=== PATIENT | female | born 1985 | race Caucasian/White ===

== ENCOUNTER → 2017-09-17 | Outpatient (CLI) | payer OTHER ==
--- NOTE | 2017-09-17 11:55 | MR ---
EXAMINATION TYPE: MR knee LT wo con DATE OF EXAM: 09/17/2017 COMPARISON: Plain film 08/25/2017 HISTORY: Left knee pain TECHNIQUE: Multiplanar, multisequence imaging of the left knee is performed without IV contrast. FINDINGS: Exam somewhat limited by patient body habitus. MEDIAL MENISCUS: Anterior and posterior horns are intact without tear. Some increased signal present within the meniscus without clear communication with the articular surface. LATERAL MENISCUS: Some increased signal present within the meniscus without definite tear. CRUCIATE LIGAMENTS: The posterior cruciate ligament shows abnormal increased signal throughout its di stribution and appears attenuated suggestive of at least partial tear. Fibers anterior cruciate ligam ent are not identified. COLLATERAL LIGAMENTS: Abnormal thickening of the popliteus tendon is present, there is increased sign al within its distribution suggestive of tendinopathy. Fibers of the fibular collateral ligament are not well seen, biceps femoris tendon appears somewhat laterally displaced from its expected insertion . I suspect avulsion from the fibular head. EXTENSOR MECHANISM: Visualized quadriceps and patellar tendons are intact. EFFUSION: Suprapatellar increased signal compatible with joint effusion. POPLITEAL CYST: No popliteal/addison cyst. TRICOMPARTMENT SPACES: There is lateral subluxation of the patella relation to the distal femur. Thais inal spurring present in the medial compartment and also at the patellofemoral joint, to lesser exten t lateral compartment CARTILAGE: Grade IV chondromalacia present at the posterior patella. BONE MARROW SIGNAL: Suspect pulmonary edema especially in the proximal tibia, the medial femoral cond yle shows some depression medially, subchondral linear low signal suggests microtrabecular fracture, impaction fracture with local marrow edema, there are likely microtrabecular fractures involving the anterior aspect of the proximal tibia as well, mild depression is noted centrally in the anterior asp ect of the proximal tibia. OTHER: Subcutaneous fat shows edema change. Fluid collection along the muscular peripherally lateral ly and posteriorly could be related to prior injury, hemorrhage IMPRESSION: Findings compatible with patient's history of dislocation of the knee with fractures of the medial fe moral condyle and proximal tibia, there are osteoarthritic changes, tear of the anterior cruciate lig ament and likely posterior cruciate ligament. Lateral collateral ligamentous complex is abnormal as d escribed.
== END | disposition home or self-care (01) ==
LOC: RADMRIMAIN 08:45
PROVIDERS: ATTEND Orthopaedic Surgery
DX: M23.8X2 Other internal derangements of left knee (principal)

== ENCOUNTER → 2019-04-02 | Outpatient (CLI) | payer OTHER | END | disposition home or self-care (01) | LOC: LABWHC1 13:10 | PROVIDERS: ATTEND Pathology Anatomic Pathology & Clinical Pathology | DX: Z53.9 Procedure and treatment not carried out, unspecified reason (principal) | CPT/HCPCS: 36415 ==

== ENCOUNTER 2021-01-17 16:14 | Inpatient (IN) | payer OTHER ==
[2021-01-17] MEDS ORDERED: SODIUM CHLORIDE 0.9% 1,000 ML IV STA ×3 (17:15→19:30)
[2021-01-17] MEDS ORDERED: ONDANSETRON 4 MG/2 ML VIAL IVP STA ×2 (17:15→19:29)
[2021-01-17 17:34] LABS: Basophils % (A) 0 %; Eosinophils # (A) 0.2 k/uL (0-0.7); Eosinophils % (A) 1 %; HCT 37.4 % (34.0-46.0); HGB 13.1 gm/dL (11.4-16.0); Lymphocytes # (A) 2.5 k/uL (1.0-4.8); Lymphocytes % (A) 16 %; MCH 28.7 pg (25.0-35.0); MCHC 35.1 g/dL (31.0-37.0); MCV 81.8 fL (80.0-100.0); Mean Platelet Volume 9.9; Monocytes # (A) 0.6 k/uL (0-1.0); Monocytes % (A) 4 %; Neutrophils # (A) 12.7 k/uL (1.3-7.7); Neutrophils % (A) 79 %; Platelet Count 304 k/uL (150-450); RBC 4.57 m/uL (3.80-5.40); RDW 14.9 % (11.5-15.5); WBC 16.1 k/uL (3.8-10.6)
--- NOTE | 2021-01-17 17:34 | ED ---
General Adult HPI - General Source: patient, RN notes reviewed Mode of arrival: wheelchair Limitations: no limitations <Meek Hallman - Last Filed: 01/17/21 18:55> <Shant Salinas - Last Filed: 01/17/21 19:40> - General Chief complaint: Abdominal Pain Stated complaint: SOB, weakness, abd pain Time Seen by Provider: 01/17/21 17:14 - History of Present Illness Initial comments: 35-year-old female presents to the emergency department for a 1 year history of constipation that been on and off. She notes that she has been a doctor in many years due to some personal reasons that she was unwilling to discuss. She notes that the last several months she noted that she was becoming bloated so she male ordered some Lasix, hydrochlorothiazide and lisinopril to try to help her make her P and given his excess fluid. Patient states that her last movement was this morning a large bowel movement that was soft in consistency nonformed. She notes that since she started taking her mail order medication she's felt a luis le rundown and tired and just not right. She notes that she really only takes the Lasix and hydrochlorothiazide regularly and takes lisinopril every once a while. She denied any chest pain shortness of breath headache vomiting diarrhea fever fatigue chills. (Meek Hallman) - Related Data Home Medications Medication Instructions Recorded Confirmed Multivitamins, Thera [Multivitamin 1 tab PO DAILY 01/17/21 01/17/21 (formulary)] Previous Rx's Medication Instructions Recorded Potassium Chloride ER [K-Dur 20] 20 meq PO DAILY 7 Days #7 tab 01/17/21 Allergies Allergy/AdvReac Type Severity Reaction Status Date / Time No Known Allergies Allergy Verified 01/17/21 18:42 Review of Systems ROS Other: All systems not noted in ROS Statement are negative. <Meek Hallman - Last Filed: 01/17/21 18:55> ROS Other: All systems not noted in ROS Statement are negative. <Shant Salinas - Last Filed: 01/17/21 19:40> ROS Statement: Those systems with pertinent positive or pertinent negative responses have been documented in the HPI. Past Medical History Past Medical History: No Reported History Additional Past Medical History / Comment(s): meningitis History of Any Multi-Drug Resistant Organisms: None Reported Past Surgical History: Section, Ear Surgery Past Psychological History: Anxiety, Bipolar, Depression, Panic Disorder Smoking Status: Never smoker Past Alcohol Use History: Occasional Past Drug Use History: None Reported <Meek Hallman - Last Filed: 01/17/21 18:55> General Exam Limitations: no limitations General appearance: alert, in no apparent distress, obese Head exam: Present: atraumatic, normocephalic, normal inspection Eye exam: Present: normal appearance, PERRL, EOMI. Absent: scleral icterus, conjunctival injection, periorbital swelling ENT exam: Present: normal exam, mucous membranes moist Neck exam: Present: normal inspection. Absent: tenderness, meningismus, lymphadenopathy Respiratory exam: Present: normal lung sounds bilaterally. Absent: respiratory distress, wheezes, rales, rhonchi, stridor Cardiovascular Exam: Present: regular rate, normal rhythm, normal heart sounds. Absent: systolic murmur, diastolic murmur, rubs, gallop, clicks GI/Abdominal exam: Present: soft, normal bowel sounds. Absent: distended, tenderness, guarding, rebound, rigid Extremities exam: Present: normal inspection, full ROM, normal capillary refill. Absent: tenderness, pedal edema, joint swelling, calf tenderness Neurological exam: Present: alert, oriented X3, CN II-XII intact Psychiatric exam: Present: normal affect, normal mood Skin exam: Present: warm, dry, intact, normal color. Absent: rash <Meek Hallman - Last Filed: 01/17/21 18:55> Course Vital Signs 01/17/21 01/17/21 16:21 18:36 Temperature 98.4 F Pulse Rate 90 103 H Respiratory 16 18 Rate Blood Pressure 91/48 85/47 O2 Sat by Pulse 97 96 Oximetry Medical Decision Making - Lab Data Result diagrams: 01/17/21 17:25 01/17/21 17:25 - Radiology Data Radiology results: report reviewed, image reviewed <Meek Hallman - Last Filed: 01/17/21 18:55> - Lab Data Result diagrams: 01/17/21 17:25 01/17/21 17:25 <Shant Salinas - Last Filed: 01/17/21 19:40> - Medical Decision Making 85-year-old female complaining of chronic constipation. Labs, CT of the abdomen and pelvis, 4 mg of Zofran, 1 L of normal saline ordered. Patient educated on importance of regular follow-up with primary care physician, and not ordering prescription medications online without a valid prescription. White count 16.1, potassium 2.9, creatinine 1.47, BUN 25 40 mEq of potassium by mouth ordered. CT negative for any acute process. Case discussed with Dr. Salinas, decided the patient could discharge home with conservative management and follow-up primary care. (Meek Hallman) Patient started with vomiting. Patient denies vomiting earlier. Patient plan was to be discharged with oral hydration and potassium replacement. Secondary to vomiting this is felt to be unwise. Case was discussed with Dr. Wilcox, who will admit his patient. (Shant Salinas) - Lab Data Lab Results 01/17/21 01/17/21 01/17/21 Range/Units 17:25 17:25 17:37 WBC 16.1 H (3.8-10.6) k/uL RBC 4.57 (3.80-5.40) m/uL Hgb 13.1 (11.4-16.0) gm/dL Hct 37.4 (34.0-46.0) % MCV 81.8 (80.0-100.0) fL MCH 28.7 (25.0-35.0) pg MCHC 35.1 (31.0-37.0) g/dL RDW 14.9 (11.5-15.5) % Plt Count 304 (150-450) k/uL MPV 9.9 Neutrophils % 79 % Lymphocytes % 16 % Monocytes % 4 % Eosinophils % 1 % Basophils % 0 % Neutrophils # 12.7 H (1.3-7.7) k/uL Lymphocytes # 2.5 (1.0-4.8) k/uL Monocytes # 0.6 (0-1.0) k/uL Eosinophils # 0.2 (0-0.7) k/uL Basophils # 0.0 (0-0.2) k/uL Sodium 134 L (137-145) mmol/L Potassium 2.9 L (3.5-5.1) mmol/L Chloride 87 L (98-107) mmol/L Carbon Dioxide 30 (22-30) mmol/L Anion Gap 17 mmol/L BUN 25 H (7-17) mg/dL Creatinine 1.47 H (0.52-1.04) mg/dL Est GFR (CKD-EPI)AfAm 53 (>60 ml/min/1.73 sqM) Est GFR (CKD-EPI)NonAf 46 (>60 ml/min/1.73 sqM) Glucose 187 H (74-99) mg/dL Calcium 10.1 (8.4-10.2) mg/dL Total Bilirubin 0.6 (0.2-1.3) mg/dL AST 27 (14-36) U/L ALT 40 H (4-34) U/L Alkaline Phosphatase 105 (38-126) U/L Total Protein 7.5 (6.3-8.2) g/dL Albumin 4.1 (3.5-5.0) g/dL Amylase 39 (30-110) U/L Lipase 112 (23-300) U/L Urine Color Yellow Urine Appearance Cloudy H (Clear) Urine pH 5.5 (5.0-8.0) Ur Specific Reynolds 1.022 (1.001-1.035) Urine Protein 1+ H (Negative) Urine Glucose (UA) Negative (Negative) Urine Ketones Negative (Negative) Urine Blood Negative (Negative) Urine Nitrite Negative (Negative) Urine Bilirubin Negative (Negative) Urine Urobilinogen <2.0 (<2.0) mg/dL Ur Leukocyte Esterase Trace H (Negative) Urine WBC 5 (0-5) /hpf Ur Squamous Epith Cells 34 H (0-4) /hpf Urine Mucus Rare H (None) /hpf Urine HCG, Qual (Not Detectd) 01/17/21 Range/Units 17:37 WBC (3.8-10.6) k/uL RBC (3.80-5.40) m/uL Hgb (11.4-16.0) gm/dL Hct (34.0-46.0) % MCV (80.0-100.0) fL MCH (25.0-35.0) pg MCHC (31.0-37.0) g/dL RDW (11.5-15.5) % Plt Count (150-450) k/uL MPV Neutrophils % % Lymphocytes % % Monocytes % % Eosinophils % % Basophils % % Neutrophils # (1.3-7.7) k/uL Lymphocytes # (1.0-4.8) k/uL Monocytes # (0-1.0) k/uL Eosinophils # (0-0.7) k/uL Basophils # (0-0.2) k/uL Sodium (137-145) mmol/L Potassium (3.5-5.1) mmol/L Chloride (98-107) mmol/L Carbon Dioxide (22-30) mmol/L Anion Gap mmol/L BUN (7-17) mg/dL Creatinine (0.52-1.04) mg/dL Est GFR (CKD-EPI)AfAm (>60 ml/min/1.73 sqM) Est GFR (CKD-EPI)NonAf (>60 ml/min/1.73 sqM) Glucose (74-99) mg/dL Calcium (8.4-10.2) mg/dL Total Bilirubin (0.2-1.3) mg/dL AST (14-36) U/L ALT (4-34) U/L Alkaline Phosphatase (38-126) U/L Total Protein (6.3-8.2) g/dL Albumin (3.5-5.0) g/dL Amylase (30-110) U/L Lipase (23-300) U/L Urine Color Urine Appearance (Clear) Urine pH (5.0-8.0) Ur Specific Reynolds (1.001-1.035) Urine Protein (Negative) Urine Glucose (UA) (Negative) Urine Ketones (Negative) Urine Blood (Negative) Urine Nitrite (Negative) Urine Bilirubin (Negative) Urine Urobilinogen (<2.0) mg/dL Ur Leukocyte Esterase (Negative) Urine WBC (0-5) /hpf Ur Squamous Epith Cells (0-4) /hpf Urine Mucus (None) /hpf Urine HCG, Qual Not Detected (Not Detectd) - Radiology Data There is no bowel obstruction, there is mild thickening of the midportion the transverse colon. Colonoscopy is recommended. Appendix is not seen no evidence of diverticulosis or diverticulitis no significant calcification of the arteries of the abdomen no abdominal aortic aneurysm. (Meek Hallman) Disposition Is patient prescribed a controlled substance at d/c from ED?: No Time of Disposition: 18:54 <Meek Hallman - Last Filed: 01/17/21 18:55> Is patient prescribed a controlled substance at d/c from ED?: No Decision Time: 19:40 <Shant Salinas - Last Filed: 01/17/21 19:40> Clinical Impression: Dehydration, Abdominal pain, Constipation, Hypokalemia Disposition: ADMITTED IP TO THIS [facility] Condition: Stable Instructions (If sedation given, give patient instructions): Abdominal Pain (ED) Additional Instructions: Please return to the Emergency Department if symptoms worsen or any other concerns. Strongly strongly recommend stopped taking online medications and to follow-up with primary care in 1-2 days to get full evaluation and establish care. Recommend a colonoscopy with a worker's compensation claims examiner for continued bowel symptoms. Stopped taking Lasix hydrochlorothiazide and lisinopril as they're not prescribed . Lasix deplete potassium, when potassium depletes cardiac issues may arise. Prescriptions: Potassium Chloride ER [K-Dur 20] 20 meq PO DAILY 7 Days #7 tab Referrals: Amor Wilcox MD [Primary Care Provider] - 1-2 days David Escalante MD [STAFF PHYSICIAN] - 1-2 days
[2021-01-17 17:41] LABS: Albumin 4.1 g/dL (3.5-5.0); Calcium 10.1 mg/dL (8.4-10.2); Potassium 2.9 mmol/L (3.5-5.1); Total Bilirubin 0.6 mg/dL (0.2-1.3); Total Protein 7.5 g/dL (6.3-8.2)
[2021-01-17 17:58] LABS: Appearance,Urine Cloudy (Clear); Bilirubin,Urine Negative (Negative); Blood,Urine Negative (Negative); Color,Urine Yellow; Glucose,Urine (UA) Negative (Negative); Ketones,Urine Negative (Negative); Leukocyte Esterase,Urine Trace (Negative); Mucus,Urine Rare /hpf; Nitrite,Urine Negative (Negative); PH, Urine 5.5 (5.0-8.0); Protein,Urine 1+ (Negative); Specific Gravity,Urine 1.022 (1.001-1.035); Squamous Epithelial Cell,Urine 34 /hpf (0-4); Urobilinogen,Urine <2.0 mg/dL (<2.0); WBC,Urine 5 /hpf (0-5)
[2021-01-17] MEDS ORDERED: POTASSIUM CHLORIDE ER 20 MEQ TAB.ER PO STA (18:27)
--- NOTE | 2021-01-17 18:42 | CT ---
EXAMINATION TYPE: CT abdomen pelvis w con DATE OF EXAM: 01/17/2021 COMPARISON: None. HISTORY: abdominal pain CT DLP: [id number] mGycm Automated exposure control for dose reduction was used. TECHNIQUE: Helical acquisition of images was performed from the lung bases through the pelvis. CONTRAST: Performed without Oral Contrast and with IV Contrast, patient injected with 80 mL of Isovue 300. FINDINGS: LUNG BASES: Clear. LIVER/GB: Slight fatty metamorphosis. PANCREAS: No significant abnormality is seen. SPLEEN: No significant abnormality is seen. ADRENALS: No significant abnormality is seen. KIDNEYS: No significant abnormality is seen. FREE AIR: No free air is visualized. RETROPERITONEAL ADENOPATHY: None visualized REPRODUCTIVE ORGANS: No significant abnormality is seen URINARY BLADDER: No significant abnormality is seen. PELVIC ADENOPATHY: None visualized. OSSEOUS STRUCTURES: No significant abnormality is seen. BOWEL: There is mild thickening of the midportion of the transverse colon and this could be due to p eristalsis, however, other etiologies should also be considered. IMPRESSION: 1. THERE IS NO BOWEL OBSTRUCTION. 2. THERE IS MILD THICKENING OF THE MIDPORTION OF THE TRANSVERSE COLON. COLONOSCOPY IS RECOMMENDED. 3. APPENDIX IS NOT SEEN. 4. NO EVIDENCE OF DIVERTICULOSIS OR DIVERTICULITIS. NO SIGNIFICANT CALCIFICATION OF THE ARTERIES OF T HE ABDOMEN. NO ABDOMINAL AORTIC ANEURYSM.
[2021-01-17] MEDS ORDERED: FAMOTIDINE 20 MG/2 ML VIAL IV STA (19:29)
[2021-01-17] MEDS ORDERED: ONDANSETRON 4 MG/2 ML VIAL IVP PRN (19:40)
[2021-01-17] MEDS ORDERED: NALOXONE 0.4 MG/ML 1 ML VIAL IV PRN (19:40)
[2021-01-17] MEDS ORDERED: SODIUM CHLORIDE 0.9% 500 ML 500 ML IV STA (19:42)
[2021-01-17] MEDS: 0.9% NACL WITH KCL 20 MEQ/L 1,000 ML IV SCH (20:55)
[2021-01-17] MEDS: POTASSIUM CHLORIDE ER 20 MEQ TAB.ER PO SCH (21:15)
[2021-01-18] MEDS: 0.9% NACL WITH KCL 20 MEQ/L 1,000 ML IV SCH ×3 (03:49→21:39)
[2021-01-18] MEDS: POTASSIUM CHLORIDE ER 20 MEQ TAB.ER PO SCH ×2 (07:41→21:35)
[2021-01-18] MEDS ORDERED: PANTOPRAZOLE 40 MG/10 ML VIAL IV SCH (09:00)
--- NOTE | 2021-01-18 13:48 | PN ---
PROGRESS NOTE CHIEF COMPLAINT: Dehydration and hypokalemia. HISTORY OF PRESENT ILLNESS: This lady seems to be doing well. She is not having any weakness, muscle cramps, etc. She is on clear liquids and we will advance her diet. PHYSICAL EXAMINATION: Chest is clear. Cardiac exam is normal. Abdomen is soft, nontender. IMPRESSION: 1. Dehydration. 2. Iatrogenic or self-inflicted hypokalemia. 3. Obesity. PLAN: 1. Advance diet. 2. Follow labs. MMODL / IJN: [id number] /
--- NOTE | 2021-01-18 15:14 | HP ---
HISTORY AND PHYSICAL CHIEF COMPLAINT: Dehydration, weakness and hypokalemia. HISTORY OF PRESENT ILLNESS: This is the first known admission for this 35-year-old white female. She apparently decided that she needed to lose weight and get rid of edema and bought some Lasix through the mail. She took them and then became dizzy, lightheaded and presented to the emergency room with dehydration and hypokalemia. She has had no syncope, chest pain, etc. Symptom-awad, she has had no other symptoms. Past medical history, family history and personal and social histories demonstrate that she is not allergic to any medication. She is not currently taking any. PHYSICAL EXAMINATION: Blood pressure is 98/60 with a pulse of 94, respirations of 36, and she is afebrile. In general, she appeared to be obese and in no acute distress. Skin color is normal and skin is warm, dry. Lymph nodes are not enlarged. Head, ears, eyes, nose, mouth and throat were normal. Neck veins are not distended. Thyroid is not enlarged. Chest is clear. Cardiac exam is normal. Abdomen is soft, nontender. Abdomen is extremely protuberant. Extremities: Normal. Neurologically, she is intact. She is admitted to the hospital with diagnoses: 1. Dehydration. 2. Hypokalemia. 3. Obesity. PLAN: 1. Bedrest. 2. IV fluids. 3. Correct electrolyte imbalance. MMODL / TONIAN: [id number] /
[2021-01-18] MEDS ORDERED: SODIUM CHLORIDE 0.9% 1,000 ML IV ONE (15:19)
[2021-01-18 16:32] LABS: Basophils % (A) 0 %; Eosinophils # (A) 0.1 k/uL (0-0.7); Eosinophils % (A) 1 %; HCT 33.2 % (34.0-46.0); HGB 10.7 gm/dL (11.4-16.0); Lymphocytes # (A) 2.1 k/uL (1.0-4.8); Lymphocytes % (A) 23 %; MCH 27.5 pg (25.0-35.0); MCHC 32.2 g/dL (31.0-37.0); MCV 85.4 fL (80.0-100.0); Mean Platelet Volume 9.9; Monocytes # (A) 0.4 k/uL (0-1.0); Monocytes % (A) 4 %; Neutrophils # (A) 6.3 k/uL (1.3-7.7); Neutrophils % (A) 70 %; Platelet Count 212 k/uL (150-450); RBC 3.89 m/uL (3.80-5.40); RDW 15.4 % (11.5-15.5); WBC 9.1 k/uL (3.8-10.6)
[2021-01-18 16:42] LABS: ALT 32 U/L (4-34); AST 24 U/L (14-36); African American GFR (CKD) 65 (>60 ml/min/1.73 sqM); Albumin 3.3 g/dL (3.5-5.0); Albumin/Globulin Ratio 1.1; Alkaline Phosphatase 74 U/L (38-126); Anion Gap 6 mmol/L; Blood Urea Nitrogen 29 mg/dL (7-17); Calcium 8.5 mg/dL (8.4-10.2); Carbon Dioxide 31 mmol/L (22-30); Chloride 99 mmol/L (98-107); Glucose 117 mg/dL (74-99); Non-African American GFR(CKD) 56 (>60 ml/min/1.73 sqM); Potassium 3.6 mmol/L (3.5-5.1); Sodium 136 mmol/L (137-145); Total Bilirubin 0.4 mg/dL (0.2-1.3); Total Protein 6.3 g/dL (6.3-8.2)
[2021-01-18 20:35] LABS: African American GFR (CKD) 61.6 (60.0-200.0); BUN/Creat Ratio 25.38 Ratio (12.00-20.00); Calcium 8.6 mg/dL (8.7-10.3); Non-African American GFR(CKD) 53.1 (60.0-200.0); Potassium 3.6 mmol/L (3.5-5.5)
[2021-01-18] MEDS ORDERED: ASPIRIN 81 MG PO STA (21:27)
[2021-01-18] MEDS: HEPARIN SODIUM,PORCINE 5,000 UNIT/ML 1 ML VIAL SQ SCH (21:36)
[2021-01-19] MEDS: 0.9% NACL WITH KCL 20 MEQ/L 1,000 ML IV SCH ×3 (04:43→21:05)
[2021-01-19] MEDS: PANTOPRAZOLE 40 MG TABLET PO SCH (07:33)
--- NOTE | 2021-01-19 08:44 | XR ---
EXAMINATION TYPE: XR chest 2V DATE OF EXAM: 01/19/2021 COMPARISON: NONE HISTORY: CHF. TECHNIQUE: Frontal and lateral views of the chest are obtained. FINDINGS: Exam slightly suboptimal secondary to patient's large body habitus. There is no focal air space opacity, pleural effusion, or pneumothorax seen. The cardiac silhouette size is within normal limits. The osseous structures are intact. Overlying EKG leads noted. IMPRESSION: No acute cardiopulmonary process.
[2021-01-19] MEDS ORDERED: ASPIRIN 81 MG PO SCH (09:00)
[2021-01-19] MEDS: POTASSIUM CHLORIDE ER 20 MEQ TAB.ER PO SCH ×2 (09:12→21:05)
[2021-01-19] MEDS: HEPARIN SODIUM,PORCINE 5,000 UNIT/ML 1 ML VIAL SQ SCH ×2 (09:12→21:05)
--- NOTE | 2021-01-19 10:02 | P.CRDCN ---
History of Present Illness History of present illness: HISTORY OF PRESENTING ILLNESS This is a pleasant 35-year-old female with no significant past medical history. She does not follow in the office with a senior service aide, her primary ca re doctor is Dr. Wilcox, but she states she has not seen him in a year. We have been asked to see in consultation for elevated troponins and chest pain. Patient is seen and examined at bedside lying in bed in no acute distress . Patient states that over the past 2 weeks she has been taking PO Lasix, 25mg PO hydrochlorothiazide, lisinopril, Flexeril. She states that she started taking 40 mg Lasix pills for one week and then increased her dose to having about 160 mg of Lasix and 1 day. She obtained all these medications on line via mail order. She states she was feeling very unwell, was lightheaded and felt dehydrated and presented to the emergency department. She started taking these medications she felt that her lower extremities were increased in swelling and that her abdomen was also looking bigger and more full. She states that she's been never been diagnosed with hypertension, diabetes, stroke, [place]. She denies chest pain at this time, but she has had episodes of chest pain. Yesterday, she states that she did have a episode of chest pain after walking from the bathroom and lying down when she was relaxing felt some pain in her midsternum, troponin was elevated at 0.057. She endorses being short of breath very frequently. She states is not very active at home. She sleeps with 2 pillows at night and cannot sleep lying flat due to shortness of breath. She endorses fatigue. She denies palpitations. Patients states she has never been prescribed medication. She denies tobacco use, alcohol use, illicit drug use. Laboratory data reviewed, on admission patient had a potassium of 2.9, creatinine 1.47. Yesterday, Troponin trending up 0.057-->0.086-->0.094. WBC 9.1, hemoglobin 10.7, sodium 136, potassium 3.6, creatinine 1.25, BNP 88. Vital signs blood pressure 111/78, heart rate 94, 97% on room air, afebrile DIAGNOSTICS EKG 01/18 1508: Normal sinus rhythm, T-wave inversions in lead 3, no significant STT wave abnormalities. EKG 01/18 1800: Normal sinus rhythm, no change from prior, no significant STT wave abnormalities EKG 01/19:0615: Normal sinus rhythm, no change from prior, no significant STT wave abnormalities Telemetry tracings indicate sinus mechanism. Chest xray- no acute cardiopulmonary process REVIEW OF SYSTEMS At the time of my exam: CONSTITUTIONAL: Denies fever or chills. CARDIOVASCULAR: +chest discomfort + shortness of breath, +orthopnea Denies palpitations. RESPIRATORY: +cough. GASTROINTESTINAL: Denies abdominal pain, diarrhea, constipation, nausea or vomiting. MUSCULOSKELETAL: Denies myalgias. NEUROLOGIC: +lightheaded, + dizziness Denies numbness, tingling, headacbe or weakness. ENDOCRINE: +fatigue, +weight change Denies polydipsia or polyurina. GENITOURINARY: Denies burning, hematuria or urgency with micturation. HEMATOLOGIC: Denies history of anemia or bleeding. PHYSICAL EXAMINATION CONSTITUTIONAL: No apparent distress. HEENT: Head is normocephalic. Pupils are equal, round. Sclerae anicteric. Mucous membranes of the mouth are moist. No JVD. No carotid bruit. CHEST EXAMINATION: Lungs are clear to auscultation. No chest wall tenderness is noted on palpation or with deep breathing. HEART EXAMINATION: Regular rate and rhythm. S1, S2 heard. No murmurs, gallops or rub. ABDOMEN: Soft, nontender. Positive bowel sounds. EXTREMITIES: 2+ peripheral pulses, no lower extremity edema and no calf tenderness. SKIN: intact NEUROLOGIC EXAMINATION: Patient is awake, alert and oriented x3. ASSESSMENT -Elevated troponins- unclear etiology, however troponins trending up, no EKG changes -Acute Kidney Injury- most likely due to dehydration, creatinine improving with IV fluids -Morbid Obesity BMI 66 PLAN -2D echo, monitor electrolytes and renal function, check troponin. Will keep patient NPO at this time. Further cardiac recommendations pending further workup. Nurse Practitioner note has been reviewed, I agree with a documented findings and plan of care. Patient was seen and examined. Past Medical History Past Medical History: No Reported History Additional Past Medical History / Comment(s): meningitis, herniated discs. History of Any Multi-Drug Resistant Organisms: None Reported Past Surgical History: Section, Ear Surgery Past Anesthesia/Blood Transfusion Reactions: No Reported Reaction Past Psychological History: Anxiety, Bipolar, Depression, Panic Disorder Additional Psychological History / Comment(s): pt states she has not been dx but she thinks she has them. Smoking Status: Never smoker Past Alcohol Use History: Occasional Past Drug Use History: None Reported Medications and Allergies Home Medications Medication Instructions Recorded Confirmed Type Multivitamins, Thera [Multivitamin 1 tab PO DAILY 01/17/21 01/17/21 History (formulary)] Potassium Chloride ER [K-Dur 20] 20 meq PO DAILY 7 Days #7 tab 01/17/21 Rx Allergies Allergy/AdvReac Type Severity Reaction Status Date / Time No Known Allergies Allergy Verified 01/17/21 18:42 Physical Exam Vitals: Vital Signs Temp Pulse Resp BP BP Pulse Ox 01/19/21 07:00 98.1 F 94 18 111/78 97 01/19/21 03:11 97.5 F L 92 96/66 99 01/18/21 19:15 97.9 F 97 122/79 99 01/18/21 16:22 102/70 01/18/21 14:46 100 18 01/18/21 14:45 97.9 F 100 18 70/39 95 Intake and Output 01/18/21 01/19/21 01/19/21 22:59 06:59 14:59 Intake Total 700 Balance 700 Intake: Oral 700 Other: Voiding Method Toilet Toilet # Voids 2 Weight 187.5 kg Results 01/18/21 15:55 01/18/21 15:55 Cardiac Enzymes 01/18/21 01/18/21 01/18/21 Range/Units 15:47 15:55 19:34 AST 24 (14-36) U/L Troponin I 0.057 H* 0.086 H* (0.000-0.034) ng/mL 01/18/21 Range/Units 22:03 AST (14-36) U/L Troponin I 0.094 H* (0.000-0.034) ng/mL CBC 01/18/21 Range/Units 15:55 WBC 9.1 (3.8-10.6) k/uL RBC 3.89 (3.80-5.40) m/uL Hgb 10.7 L (11.4-16.0) gm/dL Hct 33.2 L (34.0-46.0) % Plt Count 212 (150-450) k/uL Comprehensive Metabolic Panel 01/18/21 01/18/21 Range/Units 06:00 15:55 Sodium 141 136 L (135-145) mmol/L Potassium 3.6 3.6 (3.5-5.5) mmol/L Chloride 100 99 (96-109) mmol/L Carbon Dioxide 32.0 H 31 H (21.6-31.8) mmol/L BUN 33.0 H 29 H (9.0-27.0) mg/dL Creatinine 1.3 1.25 H (0.6-1.5) mg/dL Glucose 110 117 H (70-110) mg/dL Calcium 8.6 L 8.5 (8.7-10.3) mg/dL AST 24 (14-36) U/L ALT 32 (4-34) U/L Alkaline Phosphatase 74 (38-126) U/L Total Protein 6.3 (6.3-8.2) g/dL Albumin 3.3 L (3.5-5.0) g/dL Current Medications Generic Name Dose Route Start Last Admin Trade Name Freq PRN Reason Stop Dose Admin Aspirin 81 mg 01/19/21 09:00 01/19/21 09:12 Aspirin 81 Mg PO 81 mg DAILY DANE Administration Heparin Sodium (Porcine) 5,000 unit 01/18/21 21:30 01/19/21 09:12 Heparin Sodium,Porcine 5,000 Unit/Ml 1 Ml Vial SQ 5,000 unit Q12HR DANE Administration Potassium Chloride/Sodium Chloride 1,000 mls @ 125 mls/hr 01/17/21 19:45 01/19/21 04:43 Ns-Kcl 20 Meq/L Iv Solution IV 125 mls/hr .Q8H DANE Administration Naloxone HCl 0.2 mg 01/17/21 19:40 Naloxone 0.4 Mg/Ml 1 Ml Vial IV Q2M PRN Opioid Reversal Ondansetron HCl 4 mg 01/17/21 19:40 Ondansetron 4 Mg/2 Ml Vial IVP Q8HR PRN Nausea And Vomiting Pantoprazole Sodium 40 mg 01/19/21 07:30 01/19/21 07:33 Pantoprazole 40 Mg Tablet PO 40 mg [id number] DANE Administration Potassium Chloride 20 meq 01/17/21 21:00 01/19/21 09:12 Potassium Chloride Er 20 Meq Tab.Er PO 20 meq BID DANE Administration Intake and Output 01/18/21 01/19/21 01/19/21 22:59 06:59 14:59 Intake Total 700 Balance 700 Intake: Oral 700 Other: Voiding Method Toilet Toilet # Voids 2 Weight 187.5 kg 01/18/21 15:55 01/18/21 15:55
[2021-01-19 11:24] LABS: African American GFR (CKD) >90 (>60 ml/min/1.73 sqM); Anion Gap 6 mmol/L; Blood Urea Nitrogen 21 mg/dL (7-17); Calcium 8.3 mg/dL (8.4-10.2); Carbon Dioxide 25 mmol/L (22-30); Chloride 104 mmol/L (98-107); Glucose 128 mg/dL (74-99); Non-African American GFR(CKD) >90 (>60 ml/min/1.73 sqM); Sodium 135 mmol/L (137-145)
[2021-01-19 11:31] LABS: Potassium 4.4 mmol/L (3.5-5.1)
--- NOTE | 2021-01-19 11:51 | ECHOF ---
Referral Reason:cp MEASUREMENTS -------- HEIGHT: 167.6 cm WEIGHT: 187.3 kg BP: 111/78 RVIDd: 3.5 cm (< 3.3) IVSd: 1.1 cm (0.6 - 1.1) LVIDd: 5.2 cm (3.9 - 5.3) LVPWd: 1.3 cm (0.6 - 1.1) IVSs: 1.5 cm LVIDs: 3.0 cm LVPWs: 1.7 cm LAESV Index (A-L): 23.84 ml/m Ao Diam: 3.1 cm (2.0 - 3.7) AV Cusp: 2.0 cm (1.5 - 2.6) MV EXCURSION: 19.604 mm (> 18.000) MV EF SLOPE: 80 mm/s (70 - 150) EPSS: 0.7 cm MV E Malachi: 1.14 m/s MV DecT: 110 ms MV A Malachi: 0.68 m/s MV E/A Ratio: 1.68 RAP: 5.00 mmHg RVSP: 31.95 mmHg FINDINGS -------- Sinus rhythm. This was a technically difficult study with suboptimal views. The left ventricular size is normal. There is mild concentric left ventricular hypertrophy. Overa ll left ventricular systolic function is normal with, an EF between 55 - 60 %. The diastolic fillin g pattern is normal for the age of the patient 9.71. The right ventricle is mildly enlarged. Normal LA size by volume 22+/-6 ml/m2. The right atrium was not well visualized. 5.0mg of Lumason was utilized for enhancement of images Interatrial and interventricular septum intact. The aortic valve is trileaflet, and appears structurally normal. No aortic stenosis or regurgitation. The mitral valve is normal. No mitral regurgitation. The tricuspid valve appears structurally normal. Mild tricuspid regurgitation present. Right vent ricular systolic pressure is normal at < 35 mmHg. The right ventricular systolic pressure, as measu red by Doppler, is 31.95mmHg. The pulmonic valve was not well visualized. There is no pulmonic regurgitation present. The aortic root size is normal. IVC Not well visulized. There is no pericardial effusion. CONCLUSIONS -------- 1. This was a technically difficult study with suboptimal views. 2. There is mild concentric left ventricular hypertrophy. 3. Overall left ventricular systolic function is normal with, an EF between 55 - 60 %. 4. The right ventricle is mildly enlarged. 5. Normal LA size by volume 22+/-6 ml/m2. 6. The aortic valve is trileaflet, and appears structurally normal. No aortic stenosis or regurgitati on. 7. Mild tricuspid regurgitation present. 8. There is no pericardial effusion. NURSING STAFF DEVELOPMENT COORDINATOR: Tracy Borja RDCS
[2021-01-19] MEDS ORDERED: ALPRAZolam 0.5 MG TAB PO PRN (12:40)
[2021-01-19] MEDS ORDERED: ALPRAZolam 0.25 MG TAB PO PRN (12:40)
[2021-01-19] MEDS ORDERED: NITROGLYCERIN SL TABS 0.4 MG TAB SUBLINGUAL PRN (12:40)
[2021-01-20] MEDS: PANTOPRAZOLE 40 MG TABLET PO SCH (04:52)
[2021-01-20] MEDS: HEPARIN SODIUM,PORCINE 5,000 UNIT/ML 1 ML VIAL SQ SCH ×2 (04:52→21:38)
[2021-01-20] MEDS: POTASSIUM CHLORIDE ER 20 MEQ TAB.ER PO SCH ×2 (04:52→21:37)
[2021-01-20] MEDS: 0.9% NACL WITH KCL 20 MEQ/L 1,000 ML IV SCH ×3 (04:53→21:39)
[2021-01-20] MEDS ORDERED: ASPIRIN 325 MG TAB PO ONE (06:00)
[2021-01-20] MEDS ORDERED: SODIUM CHLORIDE 0.9% 1,000 ML in EMPTY BAG 1 BAG IV ONE (06:00)
[2021-01-20] MEDS ORDERED: ATORVASTATIN 80 MG TAB PO ONE (06:00)
[2021-01-20 06:24] LABS: African American GFR (CKD) >90 (>60 ml/min/1.73 sqM); Anion Gap 5 mmol/L; Blood Urea Nitrogen 19 mg/dL (7-17); Calcium 8.4 mg/dL (8.4-10.2); Carbon Dioxide 26 mmol/L (22-30); Chloride 107 mmol/L (98-107); Glucose 143 mg/dL (74-99); Non-African American GFR(CKD) >90 (>60 ml/min/1.73 sqM); Potassium 4.3 mmol/L (3.5-5.1); Sodium 138 mmol/L (137-145)
[2021-01-20] MEDS ORDERED: HEPARIN SODIUM,PORCINE 10,000 UNIT in SODIUM CHLORIDE 0.9% 1,000 ML IRRIGATION PRN (07:00)
[2021-01-20] MEDS ORDERED: HEPARIN SODIUM,PORCINE 2,500 UNIT in SODIUM CHLORIDE 0.9% 250 ML IRRIGATION PRN (07:00)
[2021-01-20] MEDS ORDERED: IV FLUID CONTINUATION 400 ML IV ONE (08:35)
[2021-01-20] MEDS ORDERED: fentaNYL (PF) 50 MCG/ML 2 ML AMP ONE (08:55)
[2021-01-20] MEDS ORDERED: VERAPAMIL 2.5 MG/ML 2 ML AMP ONE (08:55)
[2021-01-20] MEDS ORDERED: HEPARIN SODIUM 1,000 UN/ML (10ML VL) ONE (08:55)
[2021-01-20] MEDS ORDERED: LIDOCAINE 1% INJ 10MG/ML (20 ML MDV) ONE (08:55)
[2021-01-20] MEDS ORDERED: fentaNYL (PF) 50 MCG/ML 2 ML AMP IV ONE (08:57)
[2021-01-20] MEDS ORDERED: MIDAZOLAM 2 MG/2 ML VIAL IV ONE (08:59)
[2021-01-20] MEDS ORDERED: LIDOCAINE 1% INJ 10MG/ML (20 ML MDV) SQ ONE ×2 (08:59→09:00)
[2021-01-20] MEDS ORDERED: VERAPAMIL SYRINGE (5 MG/10 ML) INTRAARTER ONE ×2 (09:01→09:02)
[2021-01-20] MEDS ORDERED: IOPAMIDOL-370 125ML BTL INJ ONE (09:12)
[2021-01-20] MEDS ORDERED: RX INFO: IV CONTRAST WAS GIVEN 1 EACH MISC MISCELLANE PRN (09:25)
[2021-01-20] MEDS ORDERED: SODIUM CHLORIDE 0.9% 1,000 ML IV SCH (09:30)
--- NOTE | 2021-01-20 10:03 | CC ---
CARDIAC CATHETERIZATION REPORT Mrs. Rico is a 35-year-old female with no prior documented history of coronary artery disease who presented with symptoms of dyspnea and dizziness and was found to have mild elevation of troponin with a trend upward. She was self medicating with furosemide, hydrochlorothiazide, and lisinopril. Because of the abnormality of her lab data and her presentation, recommendation was made regarding cardiac catheterization. The procedure as well as the risks and the complications were discussed with the patient who is in full understanding and agreement. PROCEDURE DETAILS: Patient was brought to ammunition assembly i laborer in a fasting semi-sedated state after receiving fentanyl and Benadryl and achieving moderate conscious sedated state. Using Xylocaine anesthesia and Seldinger technique, a 6-Spanish sheath was introduced in the right radial artery. Selective right and left coronary angiography performed using 5-Spanish 3 and a half bend right and left Judkin's catheter. Multiple views of the coronary arteries including hemiaxial views were obtained. The right Dot was used to cross the aortic valve and left ventricular end-diastolic pressure was calculated. Following that, catheter and sheath were removed. Hemostasis was obtained with deployment of a TR band. There was no immediate complication. Patient is returned to her room in stable condition. Of note, patient received 6000 units of intravenous heparin as well as intra-arterial verapamil. FINDINGS: LEFT MAIN: This is a large-sized vessel, bifurcating into left circumflex, left anterior descending artery, left main coronary artery has no evidence of high-grade stenosis. LEFT ANTERIOR DESCENDING ARTERY: This is a large-sized vessel. Tapers down distal third, giving rise to a large proximal diagonal branch. The second and third diagonal branches are small in caliber. The left anterior descending artery as well as branches have no evidence of obstructive coronary artery disease. LEFT CIRCUMFLEX: This is a nondominant vessel, small in caliber, giving rise to 2 obtuse marginal branches. The left circumflex as well as branches have no evidence of obstructive coronary artery disease. RIGHT CORONARY ARTERY: This is a large dominant vessel bifurcating distally into PDA and posterolateral segment and branches. The right PDA reaches toward the inferoapical wall. The right coronary artery as well as branches have no evidence of obstructive coronary artery disease. Left ventriculogram: The left ventriculogram was not performed. HEMODYNAMICS: There was no gradient across the aortic valve. The left ventricular end-diastolic pressure was 14-16 mmHg. CONCLUSION: 1. Normal coronary arteries. 2. Right dominance. RECOMMENDATIONS: In view of findings and anatomy, I recommend continued medical therapy. I have discussed with her the importance of not taking medication on her own. Depending on her progress, further recommendation will be made. Duration of sedation is 16 minutes. JABIER / DIANE: [id number] /
--- NOTE | 2021-01-20 16:20 | PN ---
PROGRESS NOTE CHIEF COMPLAINT: Hypotension with elevated troponins. HISTORY OF PRESENT ILLNESS: This lady is going down for cardiac cath today. PHYSICAL EXAMINATION: Her vital signs are normal. Chest is clear. Cardiac exam is normal. IMPRESSION: Hypotension with elevated troponins. PLAN: Cardiac cath today. MMODL / IJN: [id number] /
--- NOTE | 2021-01-20 16:34 | PN ---
PROGRESS NOTE DATE OF SERVICE: 01/19/2021 CHIEF COMPLAINT: Hypotension and elevated troponins. HISTORY OF PRESENT ILLNESS: This lady seems stable. Vital signs have been normal. She has had no problems and she has had no pain. She is being evaluated by Cardiology relative to her unexplained troponins. PHYSICAL EXAMINATION: Chest is clear. Cardiac exam is normal. Abdomen is protuberant. IMPRESSION: 1. Hypotension. 2. Dehydration. 3. Elevated troponin. PLAN: Progress activity and diet and wait for further recommendations from Cardiology. MMODL / IJN: [id number] /
[2021-01-21] MEDS: 0.9% NACL WITH KCL 20 MEQ/L 1,000 ML IV SCH ×2 (05:57→12:25)
[2021-01-21] MEDS: HEPARIN SODIUM,PORCINE 5,000 UNIT/ML 1 ML VIAL SQ SCH (08:13)
[2021-01-21] MEDS: PANTOPRAZOLE 40 MG TABLET PO SCH (08:13)
[2021-01-21] MEDS: POTASSIUM CHLORIDE ER 20 MEQ TAB.ER PO SCH (08:13)
[2021-01-21 08:22] VITALS: BP 113/78; PULSE 106; TEMP 97.5
[2021-01-21] MEDS ORDERED: ASPIRIN 81 MG PO SCH (09:00)
--- NOTE | 2021-01-21 10:34 | P.PN ---
Subjective Progress Note Date: 01/21/21 This is a pleasant 35-year-old female with no prior documented history of CAD. She presented with symptoms of dyspnea and dizziness and was found to have mild elevation of her troponin with an upward trend. She was apparently self medicating with furosemide, hydrochlorothiazide and lisinopril. Due to the abnormality of her troponin and her presentation the recommendation was made regarding cardiac catheterization. She underwent cardiac catheterization done yesterday by Dr. Madrid. This showed normal coronaries. Echocardiogram with Doppler study showed normal LV systolic function with an ejection fraction between 55-60%, no segmental wall motion abnormalities, and mild TR. Vital signs are stable. Overall she is feeling well this morning. She has no current complaints at the time of my examination. Objective - Vital Signs Vital signs: Vital Signs Temp 97.5 F L 01/21/21 07:00 Pulse 106 H 01/21/21 07:00 Resp 22 01/21/21 07:00 BP 113/78 01/21/21 07:00 Pulse Ox 95 01/21/21 07:00 Intake & Output 01/20/21 01/21/21 01/21/21 17:59 06:59 18:59 Intake Total 200 Balance 200 Intake: IV Oral 200 Other: Voiding Method # Voids - Exam PHYSICAL EXAMINATION: HEENT: Head is atraumatic, normocephalic. Pupils equal, round. Neck is supple. There is no elevated jugular venous pressure. HEART EXAMINATION: Heart sounds regular, S1 and S2 normal. No murmur or gallop heard. CHEST EXAMINATION: Lungs are clear to auscultation and precussion. No chest wall tenderness is noted on palpation or with deep breathing. ABDOMEN: Soft, obese, nontender. Bowel sounds are heard. No organomegaly noted. EXTREMITIES: 2+ peripheral pulses with no evidence of peripheral edema and no calf tenderness noted. Right radial puncture site with mild ecchymosis but no hematoma. . NEUROLOGIC patient is awake, alert and oriented x3. . - Labs CBC & Chem 7: 01/18/21 15:55 01/20/21 05:57 Assessment and Plan Assessment: #1 elevated troponins, cardiac catheterization reveals normal coronaries #2 acute kidney injury most likely due to dehydration following self-medication with Rocephin might, hydrochlorothiazide and lisinopril, improved with IV fluids #3 morbid obesity with a BMI of 67 Plan: From cardiology's perspective patient may be discharged home today. She'll follow-up in the office later this week for a site check. AIR FORCE SENIOR OFFICER note has been reviewed, I agree with a documented findings and plan of care. Patient was seen and examined.
[2021-01-21 12:09] VITALS: RESP 18
== END 2021-01-21 15:57 | disposition home or self-care (01) | DRG 641 ==
LOC: EC 16:14 → 6NMEDSUR 19:40 → OBSVTOIN 01-19 13:41
PROVIDERS: ADMIT Family Medicine; ATTEND Family Medicine
PROC: 4A023N7 Measurement of Cardiac Sampling and Pressure, Left Heart, Percutaneous Approach (ICD-10-PCS; principal; 2021-01-20 10:00)
PROC: B2111ZZ Fluoroscopy of Multiple Coronary Arteries using Low Osmolar Contrast (ICD-10-PCS; principal; 2021-01-20 10:00)
DX: E86.0 Dehydration (principal); N17.9 Acute kidney failure, unspecified; Z68.44 Body mass index [BMI] 60.0-69.9, adult; R79.89 Other specified abnormal findings of blood chemistry; T50.1X5A Adverse effect of loop [high-ceiling] diuretics, initial encounter; F31.9 Bipolar disorder, unspecified; E87.6 Hypokalemia; E66.01 Morbid (severe) obesity due to excess calories; F41.0 Panic disorder [episodic paroxysmal anxiety]; K59.09 Other constipation; Z86.61 Personal history of infections of the central nervous system; I95.9 Hypotension, unspecified; Z79.82 Long term (current) use of aspirin; Z79.899 Other long term (current) drug therapy; Z20.822 Contact with and (suspected) exposure to COVID-19
CPT/HCPCS: 36415; 71046; 74177; 80048; 80053; 81001; 81025; 82150; 83690; 83880; 84484; 85025; 85379; 87635; 93306; 93458; 96361; 96374; 96375; 96376; 99285

== ENCOUNTER 2022-02-28 13:00 | Inpatient (IN) | payer OTHER ==
--- NOTE | 2022-02-28 13:59 | ED ---
General Adult HPI - General Source: patient, EMS Mode of arrival: EMS Limitations: no limitations <James Adrian - Last Filed: 02/28/22 14:58> <Carlos Eduardo Valladares - Last Filed: 02/28/22 17:15> - General Chief complaint: Altered Mental Status Stated complaint: altered Time Seen by Provider: 02/28/22 13:51 - History of Present Illness Initial comments: Dictation was produced using [employer] dictation software. please excuse any grammatical, word or spelling errors. Chief Complaint: 36-year-old female brought into the emergency department for altered mental status History of Present Illness: Is 36-year-old female she presents to the emergency department for altered mental status. Patient states that she does not know why she is here and she that she feels drunk. Patient was allegedly last seen normal 48 hours ago at least. Patient has any medical history. Patient is a poor historian due to mental status. According to EMS patient was found at home by her child's father's significant other. Patient denies any pain complaints. The ROS documented in this emergency department record has been reviewed and confirmed by me. Those systems with pertinent positive or negative responses h ave been documented in the HPI. All other systems are other negative and/or noncontributory. PHYSICAL EXAM: General Impression: Alert and oriented x3, not in acute distress, obese HEENT: Normocephalic atraumatic, extra-ocular movements intact, pupils equal and reactive to light bilaterally, mucous membranes moist. Cardiovascular: Heart regular rate and rhythm Chest: Able to complete full sentences, no retractions, no tachypnea Abdomen: abdomen soft, non-tender, non-distended, no organomegaly Musculoskeletal: Pulses present and equal in all extremities, no peripheral edema Motor: no focal deficits noted Neurological: Mild right lower facial droop, she does report numbness to the left lower face, slowed speech, no extremity drift, patient denies any asymmetric sensory deficits to light touch Skin: Intact with no visualized rashes Psych: Normal affect and mood ED course: Acb-doxi-vsy male presents to emergency for further altered mental status. She was last seen normal at least 48 hours ago. Patient does have some facial droop to the right lower face she complains of decreased sensation to light touch of the left lower face. She doesn't otherwise have any other focal neurologic deficits. She slowed speech and states that she feels drunk. Patient denies any alcohol intake. Vital signs are unremarkable. Code stroke not activated at this time due to unclear time of onset. Patient not a candidate for alteplase. Patient care was endorsed to Dr. Valladares. (James Adrian) - Related Data Home Medications Medication Instructions Recorded Confirmed No Known Home Medications 02/28/22 02/28/22 Allergies Allergy/AdvReac Type Severity Reaction Status Date / Time No Known Allergies Allergy Verified 02/28/22 14:31 Review of Systems ROS Other: All systems not noted in ROS Statement are negative. <James Adrian - Last Filed: 02/28/22 14:58> ROS Other: All systems not noted in ROS Statement are negative. <Carlos Eduardo Valladares - Last Filed: 02/28/22 17:15> ROS Statement: Those systems with pertinent positive or pertinent negative responses have been documented in the HPI. Past Medical History Past Medical History: No Reported History Additional Past Medical History / Comment(s): meningitis, herniated discs. History of Any Multi-Drug Resistant Organisms: None Reported Past Surgical History: Section, Ear Surgery Past Anesthesia/Blood Transfusion Reactions: No Reported Reaction Past Psychological History: Anxiety, Bipolar, Depression, Panic Disorder Smoking Status: Never smoker Past Alcohol Use History: Occasional Past Drug Use History: None Reported <James Adrian - Last Filed: 02/28/22 14:58> General Exam Limitations: no limitations <James Adrian - Last Filed: 02/28/22 14:58> Course Vital Signs 02/28/22 13:04 Temperature 98.1 F Pulse Rate 102 H Respiratory 18 Rate Blood Pressure 137/82 O2 Sat by Pulse 99 Oximetry Medical Decision Making - Lab Data Result diagrams: 02/28/22 14:31 02/28/22 14:31 - Radiology Data Radiology results: report reviewed (Imaging reviewed no evidence of acute processes. He see complete report), image reviewed <Carlos Eduardo Valladares - Last Filed: 02/28/22 17:15> - Medical Decision Making The patient was endorsed me by Dr. ASTUDILLO at her shift change pending CTs and labs. There is some mild leukocytosis x-rays negative thus far I did discuss case with the patient she still has issues of memory loss and I did discuss the case with Dr. Wilcox the patient will be admitted with neurological consultation. (Carlos Eduardo Valladares) - Lab Data Lab Results 02/28/22 02/28/22 02/28/22 Range/Units 14:31 14:31 14:31 WBC 12.5 H (3.8-10.6) k/uL RBC 4.40 (3.80-5.40) m/uL Hgb 11.9 (11.4-16.0) gm/dL Hct 37.4 (34.0-46.0) % MCV 84.9 (80.0-100.0) fL MCH 27.1 (25.0-35.0) pg MCHC 31.9 (31.0-37.0) g/dL RDW 14.5 (11.5-15.5) % Plt Count 211 (150-450) k/uL MPV 9.7 Neutrophils % 82 % Lymphocytes % 13 % Monocytes % 3 % Eosinophils % 1 % Basophils % 0 % Neutrophils # 10.2 H (1.3-7.7) k/uL Lymphocytes # 1.7 (1.0-4.8) k/uL Monocytes # 0.4 (0-1.0) k/uL Eosinophils # 0.1 (0-0.7) k/uL Basophils # 0.0 (0-0.2) k/uL PT (9.0-12.0) sec INR (<1.2) APTT (22.0-30.0) sec Sodium 136 L (137-145) mmol/L Potassium 4.0 (3.5-5.1) mmol/L Chloride 99 (98-107) mmol/L Carbon Dioxide 28 (22-30) mmol/L Anion Gap 9 mmol/L BUN 13 (7-17) mg/dL Creatinine 0.53 (0.52-1.04) mg/dL Est GFR (CKD-EPI)AfAm >90 (>60 ml/min/1.73 sqM) Est GFR (CKD-EPI)NonAf >90 (>60 ml/min/1.73 sqM) Glucose 140 H (74-99) mg/dL POC Glucose (mg/dL) (75-99) mg/dL POC Glu Coal Pipeline Operator ID Osmolality [phone] ([phone]) mosm/kg Plasma Lactic Acid Jitendra 1.3 (0.7-2.0) mmol/L Calcium 8.9 (8.4-10.2) mg/dL Magnesium 1.9 (1.6-2.3) mg/dL Total Bilirubin 0.8 (0.2-1.3) mg/dL AST 24 (14-36) U/L ALT 35 H (4-34) U/L Alkaline Phosphatase 105 (38-126) U/L Ammonia <9 (<30) umol/L Creatine Kinase 71 (30-135) U/L Troponin I (0.000-0.034) ng/mL Total Protein 7.5 (6.3-8.2) g/dL Albumin 3.9 (3.5-5.0) g/dL TSH 3.060 (0.465-4.680) mIU/L HCG, Quant <2.4 mIU/mL Urine Color Urine Appearance (Clear) Urine pH (5.0-8.0) Ur Specific Whitney (1.001-1.035) Urine Protein (Negative) Urine Glucose (UA) (Negative) Urine Ketones (Negative) Urine Blood (Negative) Urine Nitrite (Negative) Urine Bilirubin (Negative) Urine Urobilinogen (<2.0) mg/dL Ur Leukocyte Esterase (Negative) Urine RBC (0-5) /hpf Urine WBC (0-5) /hpf Ur Squamous Epith Cells (0-4) /hpf Amorphous Sediment (None) /hpf Urine Bacteria (None) /hpf Urine Mucus (None) /hpf Salicylates <1.0 mg/dL Urine Opiates Screen (NotDetected) Ur Oxycodone Screen (NotDetected) Urine Methadone Screen (NotDetected) Ur Propoxyphene Screen (NotDetected) Acetaminophen <10.0 ug/mL Ur Barbiturates Screen (NotDetected) U Tricyclic Antidepress (NotDetected) Ur Phencyclidine Scrn (NotDetected) Ur Amphetamines Screen (NotDetected) U Methamphetamines Scrn (NotDetected) U Benzodiazepines Scrn (NotDetected) Urine Cocaine Screen (NotDetected) U Marijuana (THC) Screen (NotDetected) Serum Alcohol <10 mg/dL 02/28/22 02/28/22 02/28/22 Range/Units 14:31 14:31 14:31 WBC (3.8-10.6) k/uL RBC (3.80-5.40) m/uL Hgb (11.4-16.0) gm/dL Hct (34.0-46.0) % MCV (80.0-100.0) fL MCH (25.0-35.0) pg MCHC (31.0-37.0) g/dL RDW (11.5-15.5) % Plt Count (150-450) k/uL MPV Neutrophils % % Lymphocytes % % Monocytes % % Eosinophils % % Basophils % % Neutrophils # (1.3-7.7) k/uL Lymphocytes # (1.0-4.8) k/uL Monocytes # (0-1.0) k/uL Eosinophils # (0-0.7) k/uL Basophils # (0-0.2) k/uL PT 10.6 (9.0-12.0) sec INR 1.0 (<1.2) APTT 23.6 (22.0-30.0) sec Sodium (137-145) mmol/L Potassium (3.5-5.1) mmol/L Chloride (98-107) mmol/L Carbon Dioxide (22-30) mmol/L Anion Gap mmol/L BUN (7-17) mg/dL Creatinine (0.52-1.04) mg/dL Est GFR (CKD-EPI)AfAm (>60 ml/min/1.73 sqM) Est GFR (CKD-EPI)NonAf (>60 ml/min/1.73 sqM) Glucose (74-99) mg/dL POC Glucose (mg/dL) (75-99) mg/dL POC Glu Coal Pipeline Operator ID Osmolality ([phone]) mosm/kg Plasma Lactic Acid Jitendra (0.7-2.0) mmol/L Calcium (8.4-10.2) mg/dL Magnesium (1.6-2.3) mg/dL Total Bilirubin (0.2-1.3) mg/dL AST (14-36) U/L ALT (4-34) U/L Alkaline Phosphatase (38-126) U/L Ammonia (<30) umol/L Creatine Kinase (30-135) U/L Troponin I <0.012 (0.000-0.034) ng/mL Total Protein (6.3-8.2) g/dL Albumin (3.5-5.0) g/dL TSH (0.465-4.680) mIU/L HCG, Quant mIU/mL Urine Color Yellow Urine Appearance Cloudy H (Clear) Urine pH 5.5 (5.0-8.0) Ur Specific Whitney 1.030 (1.001-1.035) Urine Protein Trace H (Negative) Urine Glucose (UA) Negative (Negative) Urine Ketones 1+ H (Negative) Urine Blood Negative (Negative) Urine Nitrite Negative (Negative) Urine Bilirubin Negative (Negative) Urine Urobilinogen <2.0 (<2.0) mg/dL Ur Leukocyte Esterase Negative (Negative) Urine RBC 1 (0-5) /hpf Urine WBC 5 (0-5) /hpf Ur Squamous Epith Cells 3 (0-4) /hpf Amorphous Sediment Rare H (None) /hpf Urine Bacteria Rare H (None) /hpf Urine Mucus Moderate H (None) /hpf Salicylates mg/dL Urine Opiates Screen Not Detected (NotDetected) Ur Oxycodone Screen Not Detected (NotDetected) Urine Methadone Screen Not Detected (NotDetected) Ur Propoxyphene Screen Not Detected (NotDetected) Acetaminophen ug/mL Ur Barbiturates Screen Not Detected (NotDetected) U Tricyclic Antidepress Not Detected (NotDetected) Ur Phencyclidine Scrn Not Detected (NotDetected) Ur Amphetamines Screen Not Detected (NotDetected) U Methamphetamines Scrn Not Detected (NotDetected) U Benzodiazepines Scrn Not Detected (NotDetected) Urine Cocaine Screen Not Detected (NotDetected) U Marijuana (THC) Screen Not Detected (NotDetected) Serum Alcohol mg/dL 02/28/22 Range/Units 14:37 WBC (3.8-10.6) k/uL RBC (3.80-5.40) m/uL Hgb (11.4-16.0) gm/dL Hct (34.0-46.0) % MCV (80.0-100.0) fL MCH (25.0-35.0) pg MCHC (31.0-37.0) g/dL RDW (11.5-15.5) % Plt Count (150-450) k/uL MPV Neutrophils % % Lymphocytes % % Monocytes % % Eosinophils % % Basophils % % Neutrophils # (1.3-7.7) k/uL Lymphocytes # (1.0-4.8) k/uL Monocytes # (0-1.0) k/uL Eosinophils # (0-0.7) k/uL Basophils # (0-0.2) k/uL PT (9.0-12.0) sec INR (<1.2) APTT (22.0-30.0) sec Sodium (137-145) mmol/L Potassium (3.5-5.1) mmol/L Chloride (98-107) mmol/L Carbon Dioxide (22-30) mmol/L Anion Gap mmol/L BUN (7-17) mg/dL Creatinine (0.52-1.04) mg/dL Est GFR (CKD-EPI)AfAm (>60 ml/min/1.73 sqM) Est GFR (CKD-EPI)NonAf (>60 ml/min/1.73 sqM) Glucose (74-99) mg/dL POC Glucose (mg/dL) 135 H (75-99) mg/dL POC Glu Coal Pipeline Operator ID Lorelei Montilla Osmolality ([phone]) mosm/kg Plasma Lactic Acid Jitendra (0.7-2.0) mmol/L Calcium (8.4-10.2) mg/dL Magnesium (1.6-2.3) mg/dL Total Bilirubin (0.2-1.3) mg/dL AST (14-36) U/L ALT (4-34) U/L Alkaline Phosphatase (38-126) U/L Ammonia (<30) umol/L Creatine Kinase (30-135) U/L Troponin I (0.000-0.034) ng/mL Total Protein (6.3-8.2) g/dL Albumin (3.5-5.0) g/dL TSH (0.465-4.680) mIU/L HCG, Quant mIU/mL Urine Color Urine Appearance (Clear) Urine pH (5.0-8.0) Ur Specific Whitney (1.001-1.035) Urine Protein (Negative) Urine Glucose (UA) (Negative) Urine Ketones (Negative) Urine Blood (Negative) Urine Nitrite (Negative) Urine Bilirubin (Negative) Urine Urobilinogen (<2.0) mg/dL Ur Leukocyte Esterase (Negative) Urine RBC (0-5) /hpf Urine WBC (0-5) /hpf Ur Squamous Epith Cells (0-4) /hpf Amorphous Sediment (None) /hpf Urine Bacteria (None) /hpf Urine Mucus (None) /hpf Salicylates mg/dL Urine Opiates Screen (NotDetected) Ur Oxycodone Screen (NotDetected) Urine Methadone Screen (NotDetected) Ur Propoxyphene Screen (NotDetected) Acetaminophen ug/mL Ur Barbiturates Screen (NotDetected) U Tricyclic Antidepress (NotDetected) Ur Phencyclidine Scrn (NotDetected) Ur Amphetamines Screen (NotDetected) U Methamphetamines Scrn (NotDetected) U Benzodiazepines Scrn (NotDetected) Urine Cocaine Screen (NotDetected) U Marijuana (THC) Screen (NotDetected) Serum Alcohol mg/dL Disposition <James Adrian - Last Filed: 02/28/22 14:58> <Carlos Eduardo Valladares - Last Filed: 02/28/22 17:15> Clinical Impression: Altered mental status Disposition: ADMITTED IP TO THIS HOSP Condition: Fair Referrals: Amor Wilcox MD [Primary Care Provider] - 1-2 days
--- NOTE | 2022-02-28 14:34 | XR ---
EXAMINATION TYPE: XR chest 1V portable DATE OF EXAM: 02/28/2022 COMPARISON: NONE HISTORY: Altered mental status TECHNIQUE: Single frontal view of the chest is obtained. FINDINGS: There is no focal air space opacity, pleural effusion, or pneumothorax seen. The sinuses is prominent there is slight prominence of interstitial. The osseous structures are intact. IMPRESSION: Mild cardiomegaly. Slightly prominent interstitium may be related to poor inspiration ra ther than early venous congestion or interstitial pneumonitis correlate
[2022-02-28 14:39] LABS: Glucose,Whole Blood 135 mg/dL (75-99)
[2022-02-28 14:56] LABS: Lactic Acid, Venous 1.3 mmol/L (0.7-2.0)
[2022-02-28 15:06] LABS: ALT 35 U/L (4-34); AST 24 U/L (14-36); Acetaminophen <10.0 ug/mL; African American GFR (CKD) >90 (>60 ml/min/1.73 sqM); Albumin 3.9 g/dL (3.5-5.0); Alcohol <10 mg/dL; Alkaline Phosphatase 105 U/L (38-126); Anion Gap 9 mmol/L; Blood Urea Nitrogen 13 mg/dL (7-17); Calcium 8.9 mg/dL (8.4-10.2); Carbon Dioxide 28 mmol/L (22-30); Chloride 99 mmol/L (98-107); Creatine Kinase 71 U/L (30-135); Glucose 140 mg/dL (74-99); Magnesium 1.9 mg/dL (1.6-2.3); Non-African American GFR(CKD) >90 (>60 ml/min/1.73 sqM); Salicylate <1.0 mg/dL; Sodium 136 mmol/L (137-145); Total Bilirubin 0.8 mg/dL (0.2-1.3); Total Protein 7.5 g/dL (6.3-8.2)
[2022-02-28 15:07] LABS: Basophils % (A) 0 %; Eosinophils # (A) 0.1 k/uL (0-0.7); Eosinophils % (A) 1 %; HCT 37.4 % (34.0-46.0); HGB 11.9 gm/dL (11.4-16.0); Lymphocytes # (A) 1.7 k/uL (1.0-4.8); Lymphocytes % (A) 13 %; MCH 27.1 pg (25.0-35.0); MCHC 31.9 g/dL (31.0-37.0); MCV 84.9 fL (80.0-100.0); Mean Platelet Volume 9.7; Monocytes # (A) 0.4 k/uL (0-1.0); Monocytes % (A) 3 %; Neutrophils # (A) 10.2 k/uL (1.3-7.7); Neutrophils % (A) 82 %; Platelet Count 211 k/uL (150-450); RDW 14.5 % (11.5-15.5); WBC 12.5 k/uL (3.8-10.6)
[2022-02-28 15:12] LABS: Partial Thromboplastin Time 23.6 sec (22.0-30.0); Prothrombin Time 10.6 sec (9.0-12.0)
[2022-02-28 15:27] LABS: HCG,Quantitative Serum <2.4 mIU/mL
--- NOTE | 2022-02-28 15:59 | CT ---
EXAMINATION TYPE: CT brain ariel burden con DATE OF EXAM: 02/28/2022 COMPARISON: None available HISTORY: AMS CT DLP: 2188.8 mGycm Automated exposure control for dose reduction was used. TECHNIQUE: CT scan of the head and cervical spine are performed without contrast. FINDINGS: There is no acute intracranial hemorrhage, mass effect, or midline shift identified. The ventricles and sulci are within normal limits in size. The globes are intact. Mild mucosal thickeni ng of the right maxillary sinus. Clear mastoid air cells. No definite acute calvarial bone fracture i dentified. Cervical spine is visualized in its entirety from C1 through upper thoracic levels and demonstrates s atisfactory alignment without evidence of acute fracture or dislocation. Prevertebral soft tissue ap pears within normal limits. The C1-C2 articulation is unremarkable. Mild spinal canal stenosis at C6 -7 level. Degenerative changes at C6-7 level. Enlarged right palatine tonsil, underlying lesion canno t be excluded, please correlate clinically. IMPRESSION: 1. No acute intracranial hemorrhage or gross acute cortical infarct. No gross space-occupying lesion by this nonenhanced CT scan. 2. No acute traumatic bony injury of the cervical spine. Incidental findings as described above.
--- NOTE | 2022-02-28 16:13 | CT ---
EXAMINATION TYPE: CT angio head neck DATE OF EXAM: 02/28/2022 HISTORY: Neurological deficit, AMS COMPARISON: Nonenhanced CT scan of the brain performed earlier same day CT DLP: 1065.6 mGycm. Automated Exposure Control for Dose Reduction was Utilized. TECHNIQUE: CTA scan of the neck is performed with IV Contrast, patient injected with 65 mL of Isovue 370, axial images are obtained, coronal and sagittal reformatted images are reviewed. 3D reconstruct ed images are created on an independent workstation and reviewed. FINDINGS: Suboptimal CTA due to artifacts caused by the patient's body habitus. Carotid/Vascular Structures: Medialization of the common carotid arteries seen posterior to the phary nx. type left [employer]ENT. Prominent right frontal parenchymal blood vessel measuring up to 4 mm and pa ssing anteriorly as a cortical vein, possibly representing a DVA (developmental venous anomaly). Othe rwise normal caliber and enhancement of the intracranial arteries and neck arteries without significa nt stenosis, occlusion, dissection, aneurysm or AV malformation. Patent major intracranial venous sin uses. Other: No intracranial abnormal enhancement. Enlarged right palatine tonsil, underlying lesion cannot be excluded, please correlate clinically. Further ENT consultation can be considered. Prominent bila teral upper cervical lymph nodes measuring up to 11 mm on the right side and 12 mm in the left side. Other scattered smaller bilateral cervical and submandibular lymph nodes. IMPRESSION: The described right frontal parenchymal 4 mm blood vessel could represent a DVA (developmental venous anomaly). This can be confirmed by elective MRI of the brain. No definite acute arterial abnormality seen in the head or the neck. Incidental findings as described above.
[2022-02-28 16:33] LABS: Amorphous Sediment,Urine Rare /hpf; Appearance,Urine Cloudy (Clear); Bacteria,Urine Rare /hpf; Bilirubin,Urine Negative (Negative); Blood,Urine Negative (Negative); Color,Urine Yellow; Glucose,Urine (UA) Negative (Negative); Ketones,Urine 1+ (Negative); Leukocyte Esterase,Urine Negative (Negative); Mucus,Urine Moderate /hpf; Nitrite,Urine Negative (Negative); PH, Urine 5.5 (5.0-8.0); Protein,Urine Trace (Negative); RBC,Urine 1 /hpf (0-5); Squamous Epithelial Cell,Urine 3 /hpf (0-4); Urobilinogen,Urine <2.0 mg/dL (<2.0); WBC,Urine 5 /hpf (0-5)
[2022-02-28 16:46] LABS: Amphetamine Screen,Urine Not Detected (NotDetected); Barbiturate Screen,Urine Not Detected (NotDetected); Benzodiazepines Screen,Urine Not Detected (NotDetected); Cocaine Screen,Urine Not Detected (NotDetected); Methadone Screen, Urine Not Detected (NotDetected); Opiate Screen,Urine Not Detected (NotDetected); Oxycodone Screen, Urine Not Detected (NotDetected); Phencyclidine Screen,Urine Not Detected (NotDetected); Tricyclic Antidepressant,Urine Not Detected (NotDetected); Urn Cannabinoid Scrn Not Detected (NotDetected)
--- NOTE | 2022-02-28 19:16 | ED ---
Medical Decision Making - Lab Data Result diagrams: 02/28/22 14:31 02/28/22 14:31 Lab Results 02/28/22 02/28/22 02/28/22 Range/Units 14:31 14:31 14:31 WBC 12.5 H (3.8-10.6) k/uL RBC 4.40 (3.80-5.40) m/uL Hgb 11.9 (11.4-16.0) gm/dL Hct 37.4 (34.0-46.0) % MCV 84.9 (80.0-100.0) fL MCH 27.1 (25.0-35.0) pg MCHC 31.9 (31.0-37.0) g/dL RDW 14.5 (11.5-15.5) % Plt Count 211 (150-450) k/uL MPV 9.7 Neutrophils % 82 % Lymphocytes % 13 % Monocytes % 3 % Eosinophils % 1 % Basophils % 0 % Neutrophils # 10.2 H (1.3-7.7) k/uL Lymphocytes # 1.7 (1.0-4.8) k/uL Monocytes # 0.4 (0-1.0) k/uL Eosinophils # 0.1 (0-0.7) k/uL Basophils # 0.0 (0-0.2) k/uL PT (9.0-12.0) sec INR (<1.2) APTT (22.0-30.0) sec Sodium 136 L (137-145) mmol/L Potassium 4.0 (3.5-5.1) mmol/L Chloride 99 (98-107) mmol/L Carbon Dioxide 28 (22-30) mmol/L Anion Gap 9 mmol/L BUN 13 (7-17) mg/dL Creatinine 0.53 (0.52-1.04) mg/dL Est GFR (CKD-EPI)AfAm >90 (>60 ml/min/1.73 sqM) Est GFR (CKD-EPI)NonAf >90 (>60 ml/min/1.73 sqM) Glucose 140 H (74-99) mg/dL POC Glucose (mg/dL) (75-99) mg/dL POC Glu Hair Spinning Machine Operator ID Osmolality 281 (280-301) mosm/kg Plasma Lactic Acid Jitendra 1.3 (0.7-2.0) mmol/L Calcium 8.9 (8.4-10.2) mg/dL Magnesium 1.9 (1.6-2.3) mg/dL Total Bilirubin 0.8 (0.2-1.3) mg/dL AST 24 (14-36) U/L ALT 35 H (4-34) U/L Alkaline Phosphatase 105 (38-126) U/L Ammonia <9 (<30) umol/L Creatine Kinase 71 (30-135) U/L Troponin I (0.000-0.034) ng/mL Total Protein 7.5 (6.3-8.2) g/dL Albumin 3.9 (3.5-5.0) g/dL TSH 3.060 (0.465-4.680) mIU/L HCG, Quant <2.4 mIU/mL Urine Color Urine Appearance (Clear) Urine pH (5.0-8.0) Ur Specific [place] (1.001-1.035) Urine Protein (Negative) Urine Glucose (UA) (Negative) Urine Ketones (Negative) Urine Blood (Negative) Urine Nitrite (Negative) Urine Bilirubin (Negative) Urine Urobilinogen (<2.0) mg/dL Ur Leukocyte Esterase (Negative) Urine RBC (0-5) /hpf Urine WBC (0-5) /hpf Ur Squamous Epith Cells (0-4) /hpf Amorphous Sediment (None) /hpf Urine Bacteria (None) /hpf Urine Mucus (None) /hpf Salicylates <1.0 mg/dL Urine Opiates Screen (NotDetected) Ur Oxycodone Screen (NotDetected) Urine Methadone Screen (NotDetected) Ur Propoxyphene Screen (NotDetected) Acetaminophen <10.0 ug/mL Ur Barbiturates Screen (NotDetected) U Tricyclic Antidepress (NotDetected) Ur Phencyclidine Scrn (NotDetected) Ur Amphetamines Screen (NotDetected) U Methamphetamines Scrn (NotDetected) U Benzodiazepines Scrn (NotDetected) Urine Cocaine Screen (NotDetected) U Marijuana (THC) Screen (NotDetected) Serum Alcohol <10 mg/dL 02/28/22 02/28/22 02/28/22 Range/Units 14:31 14:31 14:31 WBC (3.8-10.6) k/uL RBC (3.80-5.40) m/uL Hgb (11.4-16.0) gm/dL Hct (34.0-46.0) % MCV (80.0-100.0) fL MCH (25.0-35.0) pg MCHC (31.0-37.0) g/dL RDW (11.5-15.5) % Plt Count (150-450) k/uL MPV Neutrophils % % Lymphocytes % % Monocytes % % Eosinophils % % Basophils % % Neutrophils # (1.3-7.7) k/uL Lymphocytes # (1.0-4.8) k/uL Monocytes # (0-1.0) k/uL Eosinophils # (0-0.7) k/uL Basophils # (0-0.2) k/uL PT 10.6 (9.0-12.0) sec INR 1.0 (<1.2) APTT 23.6 (22.0-30.0) sec Sodium (137-145) mmol/L Potassium (3.5-5.1) mmol/L Chloride (98-107) mmol/L Carbon Dioxide (22-30) mmol/L Anion Gap mmol/L BUN (7-17) mg/dL Creatinine (0.52-1.04) mg/dL Est GFR (CKD-EPI)AfAm (>60 ml/min/1.73 sqM) Est GFR (CKD-EPI)NonAf (>60 ml/min/1.73 sqM) Glucose (74-99) mg/dL POC Glucose (mg/dL) (75-99) mg/dL POC Glu Hair Spinning Machine Operator ID Osmolality (280-301) mosm/kg Plasma Lactic Acid Jitendra (0.7-2.0) mmol/L Calcium (8.4-10.2) mg/dL Magnesium (1.6-2.3) mg/dL Total Bilirubin (0.2-1.3) mg/dL AST (14-36) U/L ALT (4-34) U/L Alkaline Phosphatase (38-126) U/L Ammonia (<30) umol/L Creatine Kinase (30-135) U/L Troponin I <0.012 (0.000-0.034) ng/mL Total Protein (6.3-8.2) g/dL Albumin (3.5-5.0) g/dL TSH (0.465-4.680) mIU/L HCG, Quant mIU/mL Urine Color Yellow Urine Appearance Cloudy H (Clear) Urine pH 5.5 (5.0-8.0) Ur Specific [place] 1.030 (1.001-1.035) Urine Protein Trace H (Negative) Urine Glucose (UA) Negative (Negative) Urine Ketones 1+ H (Negative) Urine Blood Negative (Negative) Urine Nitrite Negative (Negative) Urine Bilirubin Negative (Negative) Urine Urobilinogen <2.0 (<2.0) mg/dL Ur Leukocyte Esterase Negative (Negative) Urine RBC 1 (0-5) /hpf Urine WBC 5 (0-5) /hpf Ur Squamous Epith Cells 3 (0-4) /hpf Amorphous Sediment Rare H (None) /hpf Urine Bacteria Rare H (None) /hpf Urine Mucus Moderate H (None) /hpf Salicylates mg/dL Urine Opiates Screen Not Detected (NotDetected) Ur Oxycodone Screen Not Detected (NotDetected) Urine Methadone Screen Not Detected (NotDetected) Ur Propoxyphene Screen Not Detected (NotDetected) Acetaminophen ug/mL Ur Barbiturates Screen Not Detected (NotDetected) U Tricyclic Antidepress Not Detected (NotDetected) Ur Phencyclidine Scrn Not Detected (NotDetected) Ur Amphetamines Screen Not Detected (NotDetected) U Methamphetamines Scrn Not Detected (NotDetected) U Benzodiazepines Scrn Not Detected (NotDetected) Urine Cocaine Screen Not Detected (NotDetected) U Marijuana (THC) Screen Not Detected (NotDetected) Serum Alcohol mg/dL 02/28/22 Range/Units 14:37 WBC (3.8-10.6) k/uL RBC (3.80-5.40) m/uL Hgb (11.4-16.0) gm/dL Hct (34.0-46.0) % MCV (80.0-100.0) fL MCH (25.0-35.0) pg MCHC (31.0-37.0) g/dL RDW (11.5-15.5) % Plt Count (150-450) k/uL MPV Neutrophils % % Lymphocytes % % Monocytes % % Eosinophils % % Basophils % % Neutrophils # (1.3-7.7) k/uL Lymphocytes # (1.0-4.8) k/uL Monocytes # (0-1.0) k/uL Eosinophils # (0-0.7) k/uL Basophils # (0-0.2) k/uL PT (9.0-12.0) sec INR (<1.2) APTT (22.0-30.0) sec Sodium (137-145) mmol/L Potassium (3.5-5.1) mmol/L Chloride (98-107) mmol/L Carbon Dioxide (22-30) mmol/L Anion Gap mmol/L BUN (7-17) mg/dL Creatinine (0.52-1.04) mg/dL Est GFR (CKD-EPI)AfAm (>60 ml/min/1.73 sqM) Est GFR (CKD-EPI)NonAf (>60 ml/min/1.73 sqM) Glucose (74-99) mg/dL POC Glucose (mg/dL) 135 H (75-99) mg/dL POC Glu Hair Spinning Machine Operator ID Lorelei Montilla Osmolality (280-301) mosm/kg Plasma Lactic Acid Jitendra (0.7-2.0) mmol/L Calcium (8.4-10.2) mg/dL Magnesium (1.6-2.3) mg/dL Total Bilirubin (0.2-1.3) mg/dL AST (14-36) U/L ALT (4-34) U/L Alkaline Phosphatase (38-126) U/L Ammonia (<30) umol/L Creatine Kinase (30-135) U/L Troponin I (0.000-0.034) ng/mL Total Protein (6.3-8.2) g/dL Albumin (3.5-5.0) g/dL TSH (0.465-4.680) mIU/L HCG, Quant mIU/mL Urine Color Urine Appearance (Clear) Urine pH (5.0-8.0) Ur Specific [place] (1.001-1.035) Urine Protein (Negative) Urine Glucose (UA) (Negative) Urine Ketones (Negative) Urine Blood (Negative) Urine Nitrite (Negative) Urine Bilirubin (Negative) Urine Urobilinogen (<2.0) mg/dL Ur Leukocyte Esterase (Negative) Urine RBC (0-5) /hpf Urine WBC (0-5) /hpf Ur Squamous Epith Cells (0-4) /hpf Amorphous Sediment (None) /hpf Urine Bacteria (None) /hpf Urine Mucus (None) /hpf Salicylates mg/dL Urine Opiates Screen (NotDetected) Ur Oxycodone Screen (NotDetected) Urine Methadone Screen (NotDetected) Ur Propoxyphene Screen (NotDetected) Acetaminophen ug/mL Ur Barbiturates Screen (NotDetected) U Tricyclic Antidepress (NotDetected) Ur Phencyclidine Scrn (NotDetected) Ur Amphetamines Screen (NotDetected) U Methamphetamines Scrn (NotDetected) U Benzodiazepines Scrn (NotDetected) Urine Cocaine Screen (NotDetected) U Marijuana (THC) Screen (NotDetected) Serum Alcohol mg/dL Disposition Clinical Impression: Altered mental status Disposition: [facility]MITTED IP TO [facility] Condition: Fair Decision Date: 02/28/22 Decision Time: 17:15
[2022-02-28] MEDS: SODIUM CHLORIDE 0.9% 1,000 ML IV SCH (20:38)
[2022-03-01] MEDS: SODIUM CHLORIDE 0.9% 1,000 ML IV SCH ×2 (05:26→15:22)
[2022-03-01 09:27] LABS: Chol/HDL Ratio 4.42 Ratio; LDL Cholesterol,Calculated 104.8 mg/dL (0.0-131.0)
--- NOTE | 2022-03-01 09:46 | P.CNNES ---
History of Present Illness Consult date: 03/01/22 Requesting physician: Carlos Eduardo Valladares Reason for Consult: altered mental status History of Present Illness: This is a 36-year-old woman with medical history of meningitis, depression, bipolar and anxiety and panic disorder who presented emergency department on 02/28/2022 for altered mental status. Some of the history is presented from medical record. Per the ED note patient stated that she does not know why she was a the hospital but feels as if she is drunk. Also per the ED note EMS found the patient home by her child's father significant other. Last seen normal was 48 hours prior to present in the hospital. It seems that the patient had right facial droop and the decreased sensation over the left lower side of the face the ED team. According to nurse patient is extremely delayed in responding and upon seeing her agree. Family were attempted to be contacted (numbers in EMR) but unable to reach. Some of the workup in the hospital consisted of: Initial vital signs is a blood pressure of 137/82, heart rate of 102, respiratory of 18, temperature of 98.1 Fahrenheit oral and pulse ox of 99% room air. Patient has been afebrile during this hospital visit. White blood cell is 12.5 thousand which is slightly elevated and is a predominantly neutrophilic otherwise the rest of the CBC with differential is unremarkable. Initial serum glucose was 140, Plasma-Lyte acid is 1.3, ALT of the 35 otherwise the rest of bradykinesia panel is unremarkable. Ammonia is less than 9, TSH is 3.06. HCG quantitative is less than 2.4. Urinalysis is negative for urinary tract infection. Urine drug screen is not detected. This also is less than 1.0, acetaminophen multiple is less than that M.0 and the serum alcohol was less than the 10. CT of the head is reported as no acute intracranial hemorrhage or gross acute c ortical infarct. No gross space-occupying lesion by this nonenhanced head computed tomography scan. I personally reviewed the CT of the head and I agree there is no acute or subacute ischemic stroke and there is no at the proximal hemorrhage at. There is no appreciable mass effect. CT cervical spine is reported as No acute traumatic Bone injury of the cervical spine. CT angiography of the head and neck was reported as right frontal parenchymal 4 mm blood vessel could represent a DVA (developmental venous anomaly). This could be confirmed by elective MRI of the brain. No definite of acute arterial abnormality seen in the head or the neck. Review of Systems Review of system is limited but the pertinent positive and negative as per HPI. Past Medical History Past Medical History: No Reported History Additional Past Medical History / Comment(s): meningitis, herniated discs. History of Any Multi-Drug Resistant Organisms: None Reported Past Surgical History: Section, Ear Surgery Past Anesthesia/Blood Transfusion Reactions: No Reported Reaction Past Psychological History: Anxiety, Bipolar, Depression, Panic Disorder Additional Psychological History / Comment(s): pt states she has not been dx but she thinks she has them. Smoking Status: Never smoker Past Alcohol Use History: Occasional Past Drug Use History: None Reported Medications and Allergies Home Medications Medication Instructions Recorded Confirmed Type No Known Home Medications 02/28/22 02/28/22 History Allergies Allergy/AdvReac Type Severity Reaction Status Date / Time No Known Allergies Allergy Verified 02/28/22 14:31 Physical Examination - Vital Signs Vital Signs: Vital Signs Temp Pulse Pulse Resp BP BP Pulse Ox 03/01/22 08:17 97.4 F L 96 18 145/95 100 03/01/22 04:00 85 20 112/80 94 L 03/01/22 00:00 100 20 118/82 98 02/28/22 20:00 97.7 F 113 H 18 132/88 96 02/28/22 18:59 18 124/77 99 02/28/22 18:13 99 18 154/95 99 02/28/22 13:04 98.1 F 102 H 18 137/82 99 Intake and Output 02/28/22 03/01/22 03/01/22 22:59 06:59 14:59 Intake Total 485 1485 Balance 485 1485 Intake: Intake, IV Titration 1000 Amount Sodium Chloride 0.9% 1, 1000 000 ml @ 100 mls/hr IV . Q10H [facility] Rx#:[id number] Oral 485 485 Other: Voiding Method Toilet Toilet # Voids 1 2 Weight 181.437 kg GENERAL: The patient is a morbid obese woman, lying in bed and does not seem in acute distress. HENT: Supple neck and no nuchal rigidity. CHEST: The heart rate is regular rate rhythm. No murmurs to auscultation. No carotid bruit bilaterally. LUNG: Clear to auscultation bilaterally no wheezing noted throughout. Not labored breathing. ABDOMEN/GI: Bowel sounds present in all 4 quadrants. No tenderness to palpation throughout. NEUROLOGICAL: Higher mental function: The patient is awake but is extremely slow in responding and would space out. She is oriented to self and time. She is able to name objects (pen and watch). She is following simple commands. Language is limited. No neglect appreciated. Cranial nerves: The pupils are round, equal and reactive to light. Visual mccoy are full to confrontation throughout. Extraocular movement is intact no nystagmus is noted. The facial strength is subtle right nasolabial flattening. Tongue is midline and moved [id number] without any difficulty. No evidence of tongue bite. No dysarthria is noted. Shoulder shrug is normal bilaterally. Motor: Gait is deferred because of her cooperation.The strength is hard to test invidual muscle strength because of cooperation but moving all extremities above gravity and no focality appreciated. Normal tone and bulk. Cerebellum: Normal finger to nose bilaterally. Sensation: Unable to assess. Reflexes (right/left): 2+ throughout. Plantars are downgoing bilaterally. Results - Laboratory Findings CBC and BMP: 02/28/22 14:31 02/28/22 14:31 Abnormal Lab Findings: Abnormal Labs 02/28/22 02/28/22 02/28/22 14:31 14:31 14:31 WBC 12.5 H Neutrophils # 10.2 H Sodium 136 L Glucose 140 H POC Glucose (mg/dL) ALT 35 H Urine Appearance Cloudy H Urine Protein Trace H Urine Ketones 1+ H Amorphous Sediment Rare H Urine Bacteria Rare H Urine Mucus Moderate H 02/28/22 14:37 WBC Neutrophils # Sodium Glucose POC Glucose (mg/dL) 135 H ALT Urine Appearance Urine Protein Urine Ketones Amorphous Sediment Urine Bacteria Urine Mucus Assessment and Plan Assessment: * Encephalopathy of unknown etiology. Per the ED team the patient had right facial droop and left lower facial numbness (on my examination has subtle right facial droop but extremely slow in responding and has confusion): Rule out stroke and rule out seizure. Patient has no fever during this hospital visit, supple neck and the elevated white blood cell could be reactive but unknown etiology but suspicion of meningoencephalitis is low. * History of meningitis * History of depression * History of bipolar * History of anxiety and panic attack Plan: I ordered MRI of the brain with and without urgent. Regarding this right frontal parenchymal 4 mm blood vessel could represent a DVA (developmental venous anomaly) seen on CTA head: Will wait for MRI Brain. I will not start the patient on antiplatelet or statin unless the patient and is felt to have a stroke on imaging or the suspicion is extremely high. I ordered 2.5 hour EEG. All loss start the patient on an antiepileptic drug unless there is epileptiform discharges or seizure on the EEG Ordered vitamin B12, folate. If patient continues to be confused and above work-up are negative then will consider Lumbar Puncture. Lipid panel is ordered by the ED team is pending Every 4 hours neuro checks Physical therapy occupational therapy and speech therapy consulted by the ED team. We'll defer the rest of the medical management to the primary team. Plan discussed with the patient's nurse. Attempted to contact family members but unable to reach. Will try again later. Thank you for the consultation. UPDATE: 2.5 hour EEG read is pending. But I personally reviewed it and felt patient had rare generalized sharp/polysharp and slow waves. No seizure was appreciated. BUT PENDING FINAL READ. Therefore, overall I am concerned patient had a seizure and feel that could be cause of her altered in mentation. I loaded the patient with Keppra 2gm once because of body weight and started the patient on Keppra 750mg every 12 hours. Luis Salcedo M.D. Neuro-hospitalist Time with Patient: Greater than 30
[2022-03-01] MEDS ORDERED: LORazepam 2 MG/ML INJ IV ONE (11:30)
[2022-03-01] MEDS ORDERED: levETIRAcetam IV 2,000 MG in SODIUM CHLORIDE 0.9% 250 ML IVPB ONE (13:15)
--- NOTE | 2022-03-01 18:51 | HP ---
HISTORY AND PHYSICAL CHIEF COMPLAINT: Mental status changes. HISTORY OF PRESENT ILLNESS: This is the first admission for this 36-year-old obese white female. She presented to the hospital with lethargy and confusion. It is not known how she got there. She denied any headaches, chest pain, etc. She was quite lethargic. Drug screen was negative. CT was negative. She had no focal neurologic findings. REVIEW OF SYSTEMS: Not reliably obtained. Past medical history, family history, and personal and social histories indicate that she is not allergic to anything. The last time she was in the office was in September of 2019 and she was on Lasix and albuterol inhaler. PHYSICAL EXAMINATION: Blood pressure 124/80 with a pulse of 58, respirations of 10. She is afebrile. In general she appeared to be overweight. She was lethargic. Skin color was normal and skin was warm and dry. Lymph nodes were not enlarged. Gaze was conjugate. Pupils equal, round and reactive. Chest was clear. There were no rales. Cardiac exam demonstrated sinus rhythm and no murmurs or extra sounds. The abdomen was protuberant, soft and nontender without any masses or visceromegaly. Extremities were normal. Neurologically she was very lethargic, but she had no other sensory motor or cranial nerve findings. IMPRESSION: Lethargy and mental status changes, etiology unknown. PLAN: 1. Bedrest. 2. IV fluids. 3. Metabolic workup. 4. Neurologic workup. MMODL / IJN: [id number] /
--- NOTE | 2022-03-01 18:55 | PN ---
PROGRESS NOTE DATE OF SERVICE: 03/01/2022. CHIEF COMPLAINT: Mental status changes and lethargy. HISTORY OF PRESENT ILLNESS: This lady is not any better. She is arousable but remains lethargic and confused. She has no complaints of headache, chest pain, dizziness, weakness, etc. PHYSICAL EXAMINATION: Physical exam is unchanged. Chest is clear. Cardiac exam is normal. The abdomen is soft. Neurologically, other than her lethargy, she is intact. Vital signs are normal. IMPRESSION: Lethargy, etiology unknown. PLAN: Continue with IV fluids and monitoring of her neurologic status and vital signs. MMODL / IJN: [id number] /
[2022-03-01] MEDS: levETIRAcetam IV 750 MG in SODIUM CHLORIDE 0.9% 100 ML IVPB SCH (21:17)
[2022-03-02] MEDS: SODIUM CHLORIDE 0.9% 1,000 ML IV SCH ×2 (02:30→10:03)
[2022-03-02] MEDS: levETIRAcetam IV 750 MG in SODIUM CHLORIDE 0.9% 100 ML IVPB SCH ×2 (10:02→19:53)
[2022-03-02] MEDS: LORazepam 2 MG/ML INJ IV PRN (11:38)
--- NOTE | 2022-03-02 12:11 | P.PN ---
Subjective Progress Note Date: 03/02/22 The patient is seen at bedside and no clinical seizure per nurse. She continues to be confused but less than yesterday. I personally spoke with Dr. Leon and he reviewed 2.5 hour EEG and he agreed me that patient has patient has generalized epileptiform discharges. He did not feel patient had seizures. He stated he will dictate the report this weekend since having issues with dictation. Pending MRI Brain to be completed. Objective - Vital Signs Vital signs: Vital Signs Temp 97.4 F L 03/02/22 08:00 Pulse 98 03/02/22 08:00 Resp 20 03/02/22 08:00 BP 121/68 03/02/22 08:00 Pulse Ox 95 03/02/22 08:00 Intake & Output 03/01/22 03/02/22 03/02/22 18:59 06:59 18:59 Intake Total 120 118 Balance 120 118 Intake: Oral 120 118 Other: Voiding Method Toilet Toilet Bedside Commode # Voids 1 2 # Bowel Movements 0 - Exam GENERAL: The patient is a morbid obese woman, lying in bed and does not seem in acute distress. HENT: Supple neck and no nuchal rigidity. NEUROLOGICAL: Higher mental function: The patient is awake but is slow in responding but improved compared to yesterday. She is oriented to self, time and correctly stated she is in the hospital. She is able to name objects (pen and watch). She is following simple commands. Language is limited. No neglect appreciated. Cranial nerves: The pupils are round, equal and reactive to light. Visual mccoy are full to confrontation throughout. Extraocular movement is intact no nystagmus is noted. The facial strength is subtle right nasolabial flattening. Tongue is midline and moved [id number] without any difficulty. No evidence of tongue bite. No dysarthria is noted. Shoulder shrug is normal bilaterally. Motor: Gait is deferred because of her cooperation.The strength is lifting all extremities above gravity and no focality appreciated. Normal tone and bulk. Cerebellum: Normal finger to nose bilaterally. Sensation: Normal to touch throughout. Reflexes (right/left): 2+ throughout. Plantars are downgoing bilaterally. SOME OF THE WORK-UP: serum Vitamin B12: 439 Serum folate: 15.0 TSH: 3.06 Lipid panel: TG 95, cholestrol 160, LDL 104 and HDL 36 HCG quantitative is less than 2.4. Urinalysis is negative for urinary tract infection. Urine drug screen is not detected. This also is less than 1.0, acetaminophen multiple is less than that M.0 and the serum alcohol was less than the 10. CT of the head is reported as no acute intracranial hemorrhage or gross acute cortical infarct. No gross space-occupying lesion by this nonenhanced head computed tomography scan. I personally reviewed the CT of the head and I agree there is no acute or subacute ischemic stroke and there is no at the proximal hemorrhage at. There is no appreciable mass effect. CT cervical spine is reported as No acute traumatic Bone injury of the cervical spine. CT angiography of the head and neck was reported as right frontal parenchymal 4 mm blood vessel could represent a DVA (developmental venous anomaly). This could be confirmed by elective MRI of the brain. No definite of acute arterial abnormality seen in the head or the neck. I personally spoke with Dr. Leon and he reviewed 2.5 hour EEG and he agreed me that patient has patient has generalized epileptiform discharges. He did not feel patient had seizures. He stated he will dictate the report this weekend since having issues with dictation. - Labs CBC & Chem 7: 02/28/22 14:31 02/28/22 14:31 Assessment and Plan Assessment: * Encephalopathy due to new onset seizure (on 2.5 hour EEG she had generalized epilepitorm discharges but no seizures). Has right facial droop: Rule out stroke. Patient has no fever during this hospital visit, supple neck and the elevated white blood cell could be reactive but unknown etiology but suspicion of meningoencephalitis is low---mentation is a bit better today compared to yesterday. * History of meningitis * History of depression * History of bipolar * History of anxiety and panic attack Plan: MRI of the brain with and without urgent is pending. Regarding this right frontal parenchymal 4 mm blood vessel could represent a DVA (developmental venous anomaly) seen on CTA head: Will wait for MRI Brain. I will not start the patient on antiplatelet or statin unless the patient and is felt to have a stroke on imaging or the suspicion is extremely high. Pending final report of 2.5 hour EEG. I personally spoke with Dr. Leon and he reviewed 2.5 hour EEG and he agreed me that patient has patient has generalized epileptiform discharges. He did not feel patient had seizures. He stated he will dictate the report this weekend since having issues with dictation. Continue Keppra 750mg 1 tab bid. On Ativan 1mg Q4 hour PRN for seizure. Every 4 hours neuro checks Physical therapy, occupational therapy and speech therapy are consulted. We'll defer the rest of the medical management to the primary team. The plan is discussed with the patient and her nurse. I attempted to reach out to her family members (numbers on EMR) and 2 of 3 numbers are not in service. Then I was able to reach a family member ([phone]) but has poor phone connection but notified me that patient does not have history of seizures and is not awake that patient has any medical problems. She brought the patient she was confused. Luis Salcedo M.D. Neuro-hospitalist Time with Patient: Less than 30
--- NOTE | 2022-03-02 13:53 | MR ---
EXAMINATION TYPE: MR brain wo/w con DATE OF EXAM: 03/02/2022 COMPARISON: CT brain 02/28/2022 HISTORY: Altered mental status TECHNIQUE: Multiplanar, multisequence images of the brain and brainstem is performed without and with IV contras t, utilizing 15 mL intravenous Gadavist . FINDINGS: There is artifact on the exam. Diffusion weighted images demonstrate no evidence of a recent infarct or other diffusion abnormality. There is no extra-axial fluid collection or significant white matter signal abnormality. The ventr icular system and cisternal spaces are normal in size and appearance. The brain volume is age approp riate. Midline structures demonstrate normal morphology. The craniocervical junction appears within normal limits. Post contrast images demonstrate abnormal enhancement suggestive of developmental venous ano jameel in the right frontal lobe, is a prominent vessel present. The dural venous sinuses appear patent . The visualized sinuses are remarkable for some probable mucosal thickening in the maxillary sinuses , and the globes are intact. IMPRESSION: No acute abnormality. Findings in the right frontal lobe as described.
--- NOTE | 2022-03-02 21:32 | PN ---
PROGRESS NOTE DATE OF SERVICE: 03/02/2022 CHIEF COMPLAINT: Mental status changes, lethargy and confusion. HISTORY OF PRESENT ILLNESS: This lady may be a little bit more alert, but still very lethargic and very confused. When asked, she does not know what happened. She denies using any drugs or alcohol. She denies that anyone was trying to hurt her. PHYSICAL EXAMINATION: Her vital signs are normal. Chest is clear. Cardiac exam is normal. The abdomen is soft, nontender. IMPRESSION: Mental status changes and confusion. PLAN: 1. Neurology is evaluating her. She is going for an MRI. 2. Will enter a psych consult. MMODL / IJN: [id number] /
[2022-03-03] MEDS: LORazepam 2 MG/ML INJ IV PRN (00:13)
[2022-03-03] MEDS: levETIRAcetam IV 750 MG in SODIUM CHLORIDE 0.9% 100 ML IVPB SCH (08:12)
--- NOTE | 2022-03-03 13:44 | P.PN ---
Subjective Progress Note Date: 03/03/22 The patient is seen at bedside and she is feeling better compared to initial presentation. No seizure-like activity noticed by nursing staff overnight or today. Patient denies history of seizure. It seems the patient is homeless and is living with her son's grand-mother (father side). She stated she has no place to go to. Objective - Vital Signs Vital signs: Vital Signs Temp 98.2 F 03/03/22 11:10 Pulse 90 03/03/22 11:10 Resp 22 03/03/22 11:10 BP 126/83 03/03/22 08:16 Pulse Ox 99 03/03/22 11:10 Intake & Output 03/02/22 03/03/22 03/03/22 18:59 06:59 18:59 Intake Total 1566 1070 670 Output Total 475 Balance 1566 1070 195 Intake: IV 10 10 Invasive Line 1 10 10 Intake, IV Titration 1200 100 Amount Sodium Chloride 0.9% 1, 800 000 ml @ 100 mls/hr IV . Q10H DANE Rx#:[id number] levETIRAcetam IV 750 mg 400 100 In Sodium Chloride 0.9% 100 ml @ 400 mls/hr IVPB Q12HR DANE Rx#:[id number] Oral 356 970 660 Output: Urine 475 Other: Voiding Method Toilet Toilet Toilet Bedside Commode Bedside Commode Bedside Commode # Voids 3 - Exam GENERAL: The patient is a morbid obese woman, lying in bed and does not seem in acute distress. HENT: Supple neck and no nuchal rigidity. NEUROLOGICAL: Higher mental function: The patient is awake, alert, oriented to self, place and time. She is minimally slow to responding but drastically better compared to initial presentation. She is able to name objects (pen and watch). She is following simple commands. No aphasia or nglect. Cranial nerves: The pupils are round, equal and reactive to light. Visual mccoy are full to confrontation throughout. Extraocular movement is intact no nystagmus is noted. The facial strength is subtle right nasolabial flattening. Tongue is midline and moved [id number] without any difficulty. No evidence of tongue bite. No dysarthria is noted. Shoulder shrug is normal bilaterally. Motor: Gait is deferred because of her cooperation.The strength is lifting all extremities above gravity and no focality appreciated. Normal tone and bulk. Cerebellum: Normal finger to nose bilaterally. Sensation: Normal to touch throughout. Reflexes (right/left): 2+ throughout. Plantars are downgoing bilaterally. SOME OF THE WORK-UP: serum Vitamin B12: 439 Serum folate: 15.0 TSH: 3.06 Lipid panel: TG 95, cholestrol 160, LDL 104 and HDL 36 HCG quantitative is less than 2.4. Urinalysis is negative for urinary tract infection. Urine drug screen is not detected. This also is less than 1.0, acetaminophen multiple is less than that M.0 and the serum alcohol was less than the 10. CT of the head is reported as no acute intracranial hemorrhage or gross acute cortical infarct. No gross space-occupying lesion by this nonenhanced head computed tomography scan. I personally reviewed the CT of the head and I agree there is no acute or subacute ischemic stroke and there is no at the proximal hemorrhage at. There is no appreciable mass effect. CT cervical spine is reported as No acute traumatic Bone injury of the cervical spine. CT angiography of the head and neck was reported as right frontal parenchymal 4 mm blood vessel could represent a DVA (developmental venous anomaly). This could be confirmed by elective MRI of the brain. No definite of acute arterial abnormality seen in the head or the neck. I personally spoke with Dr. Leon and he reviewed 2.5 hour EEG and he agreed me that patient has patient has generalized epileptiform discharges. He did not feel patient had seizures. He stated he will dictate the report this weekend since having issues with dictation. MRI Brain w/ and w/o: Is reported as no acute abnormality. Developmental venous anomaly in the right frontal lobe. - Labs CBC & Chem 7: 02/28/22 14:31 02/28/22 14:31 Assessment and Plan Assessment: * Encephalopathy due to new onset seizure (on 2.5 hour EEG she had generalized epilepitorm discharges but no seizures on EEG). Has right facial droop: Rule out stroke. 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 * History of meningitis * History of depression * History of bipolar * History of anxiety and panic attack Plan: Right frontal parenchymal 4 mm blood vessel could represent a DVA (developmental venous anomaly) seen on CTA head is also seen on MRI Brain. Recommend patient to follow-up with neurosurgeon as outpatient within 1-2 weeks. No stroke on MRI Brain. Pending final report of 2.5 hour EEG. I personally spoke with Dr. Leon and he reviewed 2.5 hour EEG and he agreed me that patient has patient has generalized epileptiform discharges. He did not feel patient had seizures. He stated he will dictate the report this weekend since having issues with dictation. Continue Keppra 750mg 1 tab bid. IF patient has any behavioral/mood changes more than baseline consider switching to Lamictal or Topamax. On Ativan 1mg Q4 hour PRN for seizure. Every 4 hours neuro checks Physical therapy, occupational therapy and speech therapy are consulted. Recommend high school social studies teacher consult since need assistance with home placement. We'll defer the rest of the medical management to the primary team. Per [place] DMV, patient cannot drive for 6 months unless seizure free, avoid height, swim unassisted or use heavy machinary. Recommend patient to follow-up with neurologist as outpatient within 1-2 weeks. The plan is discussed with the patient and her nurse. No additional work-up needed from neurological team. Luis Salcedo M.D. Neuro-hospitalist Time with Patient: Less than 30
--- NOTE | 2022-03-03 16:41 | P.CN ---
Psychiatric Consult - . Consult date: 03/03/22 Consult:: IDENTIFYING DATA: This is a 36-year-old female admitted for workup of altered mental status. Psychiatry is consulted for bipolardepressionanxietypanic NOS, seizures HPI: Patient is a 36-year-old female who was admitted to the medical floor after presenting to the emergency Department for altered mental status. Per EMS, patient was found at home by her child's father's significant other. She was seen and evaluated by neurology. Head imaging was negative for hemorrhage or midline shift. CTA and MRI brain show possible DVA. 2 and half hour EEG completed due to concern of seizures, final report is pending. Patient was started on Keppra 750 mg twice a day and Ativan as needed for seizures. On my assessment patient is found sitting up in bed and using her cell phone. She is somewhat guarded, vague and slow to answer questions. She is oriented to person, place, time, and situation. She has difficulty recalling the events leading up to her admission except for stating that she felt like she was spacing out for about a week prior to her admission. She is able to answer questions but appears to be a historian of her uncertain reliability. She reports her mood is "pretty crummy" with poor sleep, low energy, low concentration and low appetite. She denies suicidal or homicidal ideations, plan or intent. She denies auditory or visual hallucinations. She does not appear paranoid or express delusional thought content. She reports living with her child's father's mother, process has been a big stressor for her since there have been family problems in the home. She states she does not feel safe going back to that home after discharge. She states she does feel safe here while in the hospital, but does not want to go back to that home. She reports an increase in her alcohol consumption in the 2 weeks prior to admission, and reports on 3 occasions in the past 2 weeks she has consumed about a fifth of liquor in each sitting. She consistently denies thoughts of self-harm or suicidal ideations plan or intent. She does not feel that she needs inpatient psychiatric treatment at this time, and only feels that she needs a better place to live. PAST PSYCHIATRIC HISTORY: She reports she was previously admitted to the [facility] unit in 2010 for suicidal ideations. She reports a history of schizophrenia and bipolar, however this could not be confirmed at this time. She is not currently taking any psychiatric medications. She reports in the past she has been prescribed Abilify but did not find it helpful. She reports past outpatient treatment in [facility], but is not currently linked with an outpatient mental health provider. Past Medical History: As per chart Past Surgical History: As per chart ALLERGIES: No Known Allergies Allergy (Verified 02/28/22 14:31) CHEMICAL DEPENDENCY HISTORY: She previously smoked but quit in 2010. She reports a history of occasional alcohol use, but reports an increase over the past 2 weeks where she on 3 separate occasions she has consumed a fifth of liquor in each sitting over the past 2 weeks. She denies illicit drug use. FAMILY PSYCHIATRIC/SUBSTANCE USE HISTORY: None known at this time SOCIAL HISTORY: She was living with her child's grandmother however she reports not feeling safe and that living environment and reports she cannot go back. She has a [id number] daughter who is living in that home as well. Reports the child is currently in the care of that child's grandmother. She has family in [facility]. She reports she has reached out to her brothers. MENTAL STATUS EXAM: General Appearance: Patient appears disheveled, morbidly obese, and to be stated age. Orientation: She is awake, alert, and oriented to person, place, time, and situation. Behavior: Patient is seated without any agitated behavior. Speech: Patient's speech is fluent and nonpressured, with low volume and tone. Mood/Affect: Patient reports mood is depressed, affect is congruent. Suicidality/Homicidality: Patient denies suicidal or homicidal ideations, plan or intent. Perceptions: Patient denies any visual hallucinations and denies any auditory hallucinations. Though content/process: There is no evidence of any delusional thought content. Thought process appears slowed. Memory and concentration: Immediate, recent and remote memory are intact. Insight: fair Judgment: fair IMPRESSIONS: Unspecified depressive disorder Delirium due to unknown etiology, resolving PLAN: At this time patient DOES NOT meet criteria for inpatient psychiatric admission. She is currently denying suicidal or homicidal ideations plan or intent. Please DO NOT discharge patient without first discussing with psychiatry. Patient appears depressed and appears distressed over her former living situation. Considering her history of past inpatient psychiatric admission for suicidal ideations, it would be best to reach a family member or other source of collateral information prior to discharge. I was not able to reach anyone this evening. Patient will also need linkage with mental health services prior to discharge. Agree with social work consult to discuss housing options since patient does not feeling safe to return home. Recommended medication changes: Consider trial of Trazodone 50 mg daily at bedtime when necessary for sleep. Continue to reassess safety and utilize one-to-one sitter if safety concerns arise. 03/03/22 13:15 03/03/22 16:12
[2022-03-03] MEDS: traZODone HCL 50 MG TAB PO PRN (20:44)
--- NOTE | 2022-03-04 08:03 | PN ---
PROGRESS NOTE DATE OF SERVICE: 03/03/2022 CHIEF COMPLAINT: Mental status changes. HISTORY OF PRESENT ILLNESS: This lady is still lethargic and somewhat disoriented. She is undergoing neurologic evaluation and so far everything has been negative. When she is questioned as to what was going on at home and was there anything that was particularly bothering her, she refuses to talk. Psychiatry is to see her as well. PHYSICAL EXAMINATION: Her vital signs are normal. The chest is clear. The cardiac exam is normal. Neurologically she is intact other than somewhat lethargic. IMPRESSION: 1. Mental status changes. 2. Depression. PLAN: Await completion of her neurologic and psychiatric evaluations. MMODL / IJN: [id number] /
[2022-03-04] MEDS ORDERED: SERTRALINE 25 MG TAB PO STA (13:59)
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
--- NOTE | 2022-03-04 15:59 | P.PN ---
Subjective Progress Note Date: 03/04/22 The patient is seen at bedside and feels she is doing well from neurological perspective. No seizures noted per nursing staff. Objective - Vital Signs Vital signs: Vital Signs Temp 98.3 F 03/04/22 15:23 Pulse 102 H 03/04/22 15:23 Resp 18 03/04/22 15:23 BP 117/79 03/04/22 15:23 Pulse Ox 98 03/04/22 15:23 Intake & Output 03/03/22 03/04/22 03/04/22 18:59 06:59 18:59 Intake Total 1250 10 Output Total 475 475 Balance 775 -475 10 Intake: IV 10 10 Invasive Line 1 10 10 Intake, IV Titration 100 Amount levETIRAcetam IV 750 mg 100 In Sodium Chloride 0.9% 100 ml @ 400 mls/hr IVPB Q12HR [facility] Rx#:[id number] Oral 1140 Output: Urine 475 475 Other: Voiding Method Toilet Toilet Toilet Bedside Commode Bedside Commode Bedside Commode # Voids 3 2 1 # Bowel Movements 3 3 - Exam GENERAL: The patient is a morbid obese woman, lying in bed and does not seem in acute distress. HENT: Supple neck and no nuchal rigidity. NEUROLOGICAL: Higher mental function: The patient is awake, alert, oriented to self, place and time. She is minimally slow to responding but drastically better compared to initial presentation. She is able to name objects (pen and watch). She is following simple commands. No aphasia or nglect. Cranial nerves: The pupils are round, equal and reactive to light. Visual mccoy are full to confrontation throughout. Extraocular movement is intact no nystagmus is noted. The facial strength is subtle right nasolabial flattening. Tongue is midline and moved [id number] without any difficulty. No evidence of tongue bite. No dysarthria is noted. Shoulder shrug is normal bilaterally. Motor: Gait is deferred because of her cooperation.The strength is lifting all extremities above gravity and no focality appreciated. Normal tone and bulk. Cerebellum: Normal finger to nose bilaterally. Sensation: Normal to touch throughout. Reflexes (right/left): 2+ throughout. Plantars are downgoing bilaterally. SOME OF THE WORK-UP: serum Vitamin B12: 439 Serum folate: 15.0 TSH: 3.06 Lipid panel: TG 95, cholestrol 160, LDL 104 and HDL 36 HCG quantitative is less than 2.4. Urinalysis is negative for urinary tract infection. Urine drug screen is not detected. This also is less than 1.0, acetaminophen multiple is less than that M.0 and the serum alcohol was less than the 10. CT of the head is reported as no acute intracranial hemorrhage or gross acute cortical infarct. No gross space-occupying lesion by this nonenhanced head computed tomography scan. I personally reviewed the CT of the head and I agree there is no acute or subacute ischemic stroke and there is no at the proximal hemorrhage at. There is no appreciable mass effect. CT cervical spine is reported as No acute traumatic Bone injury of the cervical spine. CT angiography of the head and neck was reported as right frontal parenchymal 4 mm blood vessel could represent a DVA (developmental venous anomaly). This could be confirmed by elective MRI of the brain. No definite of acute arterial abnormality seen in the head or the neck. I personally spoke with Dr. eLon and he reviewed 2.5 hour EEG and he agreed me that patient has patient has generalized epileptiform discharges. He did not feel patient had seizures. He stated he will dictate the report this weekend since having issues with dictation. MRI Brain w/ and w/o: Is reported as no acute abnormality. Developmental venous anomaly in the right frontal lobe. - Labs CBC & Chem 7: 02/28/22 14:31 02/28/22 14:31 Assessment and Plan Assessment: * Encephalopathy due to new onset seizure (on 2.5 hour EEG she had generalized epilepitorm discharges but no seizures on EEG and possibly she was in post-ict al state). 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 * History of meningitis * History of depression * History of bipolar * History of anxiety and panic attack Plan: Right frontal parenchymal 4 mm blood vessel could represent a DVA (developmental venous anomaly) seen on CTA head is also seen on MRI Brain. Recommend patient to follow-up with neurosurgeon as outpatient within 1-2 weeks. No stroke on MRI Brain. Pending final report of 2.5 hour EEG. I personally spoke with Dr. Leon and he reviewed 2.5 hour EEG and he agreed me that patient has patient has generalized epileptiform discharges. He did not feel patient had seizures. He stated he will dictate the report this weekend since having issues with dictation. Continue Keppra 750mg 1 tab bid. IF patient has any behavioral/mood changes more than baseline consider switching to Lamictal or Topamax. On Ativan 1mg Q4 hour PRN for seizure. Every 4 hours neuro checks Physical therapy, occupational therapy and speech therapy are consulted. Recommend director social welfare consult since need assistance with home placement. We'll defer the rest of the medical management to the primary team. Per [place] DMV, patient cannot drive for 6 months unless seizure free, avoid height, swim unassisted or use heavy machinary. Recommend patient to follow-up with neurologist as outpatient within 1-2 weeks. The plan is discussed with the patient and her nurse. No additional work-up needed from neurological team. Luis Salcedo M.D. Neuro-hospitalist Time with Patient: Less than 30
--- NOTE | 2022-03-04 19:52 | PN ---
PROGRESS NOTE DATE OF SERVICE: 03/04/2022 CHIEF COMPLAINT: Mental status changes, lethargy and confusion. HISTORY OF PRESENT ILLNESS: This lady is almost the same as she was yesterday. She is being further evaluated by Neurology and an MRI report is pending. She is also to be seen by Psychiatry. PHYSICAL EXAMINATION: She is still lethargic and slightly confused. She does not complain of headaches, shortness of breath, chest pain, other neurologic symptoms, etc. The chest is clear. Cardiac exam is normal. Abdomen is soft, nontender. Cranial nerves and sensory motor exam are intact on limited examination. IMPRESSION: 1. Mental status changes. 2. Acute psychosis, etiology unknown. 3. ? depression. PLAN: Await for balance of studies and her psychiatric report. MMODL / IJN: [id number] /
[2022-03-04] MEDS: traZODone HCL 50 MG TAB PO PRN (20:10)
[2022-03-05] MEDS ORDERED: SERTRALINE 25 MG TAB PO SCH (09:00)
[2022-03-05 13:24] VITALS: RESP 20
[2022-03-05 15:20] VITALS: BP 132/68; PULSE 104; TEMP 97.8
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
--- NOTE | 2022-03-05 15:41 | P.PN ---
Subjective Progress Note Date: 03/05/22 The patient is seen at bedside and feels she is doing well. She feels a bit anxious since dealing with housing issues. Otherwise no further seizures. Objective - Vital Signs Vital signs: Vital Signs Temp 97.8 F 03/05/22 15:19 Pulse 104 H 03/05/22 15:19 Resp 20 03/05/22 15:19 BP 132/68 03/05/22 15:19 Pulse Ox 98 03/05/22 15:19 Intake & Output 03/04/22 03/05/22 03/05/22 18:59 06:59 18:59 Intake Total 450 10 10 Balance 450 10 10 Intake: IV 10 10 10 0.9 10 Invasive Line 1 10 10 Oral 440 Other: Voiding Method Toilet Toilet Toilet Bedside Commode # Voids 3 1 2 # Bowel Movements 1 - Exam GENERAL: The patient is a morbid obese woman, lying in bed and does not seem in acute distress. HENT: Supple neck and no nuchal rigidity. NEUROLOGICAL: Higher mental function: The patient is awake, alert, oriented to self, place and time. She is minimally slow to responding but drastically better compared to initial presentation. She is able to name objects (pen and watch). She is following simple commands. No aphasia or nglect. Cranial nerves: The pupils are round, equal and reactive to light. Visual mccoy are full to confrontation throughout. Extraocular movement is intact no nystagmus is noted. The facial strength is subtle right nasolabial flattening. Tongue is midline and moved [id number] without any difficulty. No evidence of tongue bite. No dysarthria is noted. Shoulder shrug is normal bilaterally. Motor: Gait is deferred because of her cooperation.The strength is lifting all extremities above gravity and no focality appreciated. Normal tone and bulk. Cerebellum: Normal finger to nose bilaterally. Sensation: Normal to touch throughout. Reflexes (right/left): 2+ throughout. Plantars are downgoing bilaterally. SOME OF THE WORK-UP: serum Vitamin B12: 439 Serum folate: 15.0 TSH: 3.06 Lipid panel: TG 95, cholestrol 160, LDL 104 and HDL 36 HCG quantitative is less than 2.4. Urinalysis is negative for urinary tract infection. Urine drug screen is not detected. This also is less than 1.0, acetaminophen multiple is less than that M.0 and the serum alcohol was less than the 10. CT of the head is reported as no acute intracranial hemorrhage or gross acute cortical infarct. No gross space-occupying lesion by this nonenhanced head computed tomography scan. I personally reviewed the CT of the head and I agree there is no acute or subacute ischemic stroke and there is no at the proximal hemorrhage at. There is no appreciable mass effect. CT cervical spine is reported as No acute traumatic Bone injury of the cervical spine. CT angiography of the head and neck was reported as right frontal parenchymal 4 mm blood vessel could represent a DVA (developmental venous anomaly). This could be confirmed by elective MRI of the brain. No definite of acute arterial abnormality seen in the head or the neck. I personally spoke with Dr. Leon and he reviewed 2.5 hour EEG and he agreed me that patient has patient has generalized epileptiform discharges. He did not feel patient had seizures. He stated he will dictate the report this weekend since having issues with dictation. MRI Brain w/ and w/o: Is reported as no acute abnormality. Developmental venous anomaly in the right frontal lobe. - Labs CBC & Chem 7: 02/28/22 14:31 02/28/22 14:31 Assessment and Plan Assessment: * Encephalopathy due to new onset seizure (on 2.5 hour EEG she had generalized epilepitorm discharges but no seizures on EEG and possibly she was in post- ictal state). 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 * History of meningitis * History of depression * History of bipolar * History of anxiety and panic attack Plan: Right frontal parenchymal 4 mm blood vessel could represent a DVA (developmental venous anomaly) seen on CTA head is also seen on MRI Brain. Recommend patient to follow-up with neurosurgeon as outpatient within 1-2 weeks. No stroke on MRI Brain. Pending final report of 2.5 hour EEG. I personally spoke with Dr. Leon and he reviewed 2.5 hour EEG and he agreed me that patient has patient has generalized epileptiform discharges. He did not feel patient had seizures. He stated he will dictate the report this weekend since having issues with dictation. Continue Keppra 750mg 1 tab bid. IF patient has any behavioral/mood changes more than baseline consider switching to Lamictal or Topamax. On Ativan 1mg Q4 hour PRN for seizure. Every 4 hours neuro checks Physical therapy, occupational therapy and speech therapy are consulted. Recommend social service director consult since need assistance with home placement. We'll defer the rest of the medical management to the primary team. Per [place] DMV, patient cannot drive for 6 months unless seizure free, avoid height, swim unassisted or use heavy machinary and this was notified to patient. Recommend patient to follow-up with neurologist as outpatient within 1-2 weeks. The plan is discussed with the patient and her nurse. No additional work-up needed. Patient is clear for discharge from neurological perspective. Luis Salcedo M.D. Neuro-hospitalist Time with Patient: Less than 30
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
== END 2022-03-05 16:59 | disposition home or self-care (01) | DRG 100 ==
LOC: EC 13:00 → 3SCARD 17:16 → OBSVTOIN 03-04 13:08
PROVIDERS: ADMIT Family Medicine; ATTEND Family Medicine
DX: G40.409 Other generalized epilepsy and epileptic syndromes, not intractable, without status epilepticus (principal); Q28.3 Other malformations of cerebral vessels; F23 Brief psychotic disorder; G93.40 Encephalopathy, unspecified; Z68.44 Body mass index [BMI] 60.0-69.9, adult; F05 Delirium due to known physiological condition; F31.9 Bipolar disorder, unspecified; E66.9 Obesity, unspecified; F41.0 Panic disorder [episodic paroxysmal anxiety]; R29.810 Facial weakness; Y04.0XXA Assault by unarmed brawl or fight, initial encounter; Z86.61 Personal history of infections of the central nervous system
CPT/HCPCS: 36415; 70450; 70496; 70498; 70553; 71045; 72125; 80053; 80061; 80143; 80179; 80306; 80320; 81001; 82140; 82550; 82607; 82746; 83605; 83735; 83930; 84443; 84484; 84702; 85025; 85610; 85730; 93005; 95816; 99285

== ENCOUNTER 2022-03-05 23:37 | Emergency (ER) | payer OTHER ==
[2022-03-06 00:08] VITALS: RESP 18
[2022-03-06 00:59] LABS: Amphetamine Screen,Urine Not Detected (NotDetected); Barbiturate Screen,Urine Not Detected (NotDetected); Benzodiazepines Screen,Urine Not Detected (NotDetected); Cocaine Screen,Urine Not Detected (NotDetected); Methadone Screen, Urine Not Detected (NotDetected); Opiate Screen,Urine Not Detected (NotDetected); Oxycodone Screen, Urine Not Detected (NotDetected); Phencyclidine Screen,Urine Not Detected (NotDetected); Tricyclic Antidepressant,Urine Not Detected (NotDetected); Urn Cannabinoid Scrn Not Detected (NotDetected)
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
[2022-03-06] MEDS ORDERED: ONDANSETRON ODT 4 MG TAB PO STA (06:45)
[2022-03-06 07:15] VITALS: BP 125/78; PULSE 94; TEMP 97.4
== END 2022-03-06 12:18 | disposition home or self-care (01) ==
LOC: EC 23:37
DX: F10.129 Alcohol abuse with intoxication, unspecified (principal); G40.909 Epilepsy, unspecified, not intractable, without status epilepticus; F31.9 Bipolar disorder, unspecified; F41.9 Anxiety disorder, unspecified; E66.01 Morbid (severe) obesity due to excess calories; Z79.899 Other long term (current) drug therapy; Z68.43 Body mass index [BMI] 50.0-59.9, adult; Y90.9 Presence of alcohol in blood, level not specified
CPT/HCPCS: 80306; 82075; 99284

== ENCOUNTER 2022-05-27 17:07 | Emergency (ER) | payer OTHER ==
[2022-05-27 17:29] VITALS: RESP 22; TEMP 98.2
--- NOTE | 2022-05-27 20:00 | XR ---
EXAMINATION TYPE: XR knee complete bilateral DATE OF EXAM: 05/27/2022 COMPARISON: Left knee 08/25/2017 HISTORY: Knee pain TECHNIQUE: 7 views FINDINGS: There is minor spurring of the femoral and tibial condyles of the left knee. The right knee joint spaces are fairly normal with minimal spurring of the femoral and tibial condyles. There is bi lateral spurring at the patellofemoral joint. There is some spurring at the left tibial tubercle cons istent with old osteochondrosis. No evidence of any significant knee joint effusion. IMPRESSION: Degenerative mild spurring of the femoral and tibial condyles and also the patella. No si gnificant overall joint space narrowing. No fracture.
--- NOTE | 2022-05-27 20:21 | ED ---
Lower Extremity Injury HPI - General Chief Complaint: Extremity Injury, Lower Stated Complaint: Leg pain Time Seen by Provider: 05/27/22 19:03 Source: patient, RN notes reviewed Mode of arrival: wheelchair Limitations: no limitations - History of Present Illness Initial Comments: This is a 36-year-old female who presents to the emergency department for left knee pain. Patient states that for the last 2-3 weeks, she feels like her knee occasionally gives out on her when she walks. She does note that she spends a lot of time on her knees and due to her weight, she tends to move around on her hands and knees. States that she did tear tendon in the left leg in 2017 and was advised to have this repaired, however her orthopedic provider did not acce pt her insurance. She does not have an Gage wrap or knee brace. Also states that she feels a small bump in her right knee that tends to move around. She only noticed this yesterday when she was feeling her knee. Denies any associated pain. Denies any fevers, chills, sore throat, cough, dyspnea, chest pain, palpitations, abdominal pain, nausea, vomiting, diarrhea, back pain, or headac hes. MD Complaint: knee injury Onset/Timin -: week(s) Injury: Knee: Left - Related Data Previous Rx's Medication Instructions Recorded Sertraline [Zoloft] 25 mg PO DAILY #10 tab 03/05/22 traZODone HCL [Desyrel] 50 mg PO HS PRN #10 tab 03/05/22 Allergies Allergy/AdvReac Type Severity Reaction Status Date / Time No Known Allergies Allergy Verified 05/27/22 17:29 Review of Systems ROS Statement: Those systems with pertinent positive or pertinent negative responses have been documented in the HPI. ROS Other: All systems not noted in ROS Statement are negative. Past Medical History Past Medical History: No Reported History, Seizure Disorder Additional Past Medical History / Comment(s): meningitis, herniated discs. History of Any Multi-Drug Resistant Organisms: None Reported Past Surgical History: Section, Ear Surgery Past Anesthesia/Blood Transfusion Reactions: No Reported Reaction Past Psychological History: Anxiety, Bipolar, Depression, Panic Disorder Smoking Status: Never smoker Past Alcohol Use History: Occasional Past Drug Use History: None Reported General Exam Limitations: no limitations General appearance: alert, in no apparent distress Head exam: Present: atraumatic, normocephalic, normal inspection Respiratory exam: Present: normal lung sounds bilaterally. Absent: respiratory distress, wheezes, rales, rhonchi, stridor Cardiovascular Exam: Present: regular rate, normal rhythm, normal heart sounds. Absent: systolic murmur, diastolic murmur, rubs, gallop, clicks Extremities exam: Present: other (No tenderness or swelling over the left patella. Full active range of motion and no pain with abduction or adduction. Negative Neil's. Small mobile lump overlying the right patella. No tenderness or swelling.) Neurological exam: Present: alert, oriented X3, CN II-XII intact Psychiatric exam: Present: normal affect, normal mood Skin exam: Present: warm, dry, intact, normal color. Absent: rash Course Vital Signs 05/27/22 05/27/22 17:27 20:44 Temperature 98.2 F Pulse Rate 102 H 100 Respiratory 22 22 Rate Blood Pressure 135/90 148/93 O2 Sat by Pulse 97 96 Oximetry Medical Decision Making - Medical Decision Making This is a 36-year-old female who presents to the emergency department for left knee pain. Given that the patient had a strange lump in the right knee, x-rays of the bilateral knees were obtained. X-rays were consistent with degenerative changes and no acute abnormalities. Patient given an Gage wrap to wrap her left knee, as her leg was too large for the knee immobilizer. Patient's body habitus is likely a large contributing factor to her symptoms as well. Advised she avoid putting excess pressure on her knees. Instructed her to follow up with orthopedics for further evaluation of ongoing symptoms. Advised Tylenol and ibuprofen for pain. Return precautions reviewed in depth, the patient is instructed to return to the emergency department with any new, worsening, or concerning symptoms. Patient verbalized understanding. This case was discussed in detail with the attending ED physician. Presentation, findings, and treatment plan discussed in detail as well. - Radiology Data Radiology results: report reviewed, image reviewed Disposition Clinical Impression: Left knee pain Disposition: HOME SELF-CARE Instructions (If sedation given, give patient instructions): Knee Pain (ED) Additional Instructions: Return to the emergency department with any new, worsening, or concerning symptoms. Contact orthopedics for a follow-up appointment. Wrap the knee in Gage wraps to keep it stabilized or purchase a knee brace. Avoid putting excess pressure on the knee. Take over the counter anti-inflammatories as needed for pain and apply heat to the knee. Is patient prescribed a controlled substance at d/c from ED?: No Referrals: Amor Wilcox MD [Primary Care Provider] - 1-2 days Galdino Gibson DO [Doctor of Osteopathic Medicine] - 1-2 days
[2022-05-27 20:45] VITALS: BP 148/93; PULSE 100
== END 2022-05-27 20:44 | disposition home or self-care (01) ==
LOC: EC 17:07
DX: M25.562 Pain in left knee (principal)
CPT/HCPCS: 99283

== ENCOUNTER 2022-11-10 01:10 | Emergency (ER) | payer OTHER ==
[2022-11-10 01:17] VITALS: RESP 18; TEMP 98.7
--- NOTE | 2022-11-10 01:50 | ED ---
General Adult HPI - General Chief complaint: Fall Stated complaint: Fall Time Seen by Provider: 11/10/22 01:18 Source: patient, RN notes reviewed Mode of arrival: EMS Limitations: no limitations - History of Present Illness Initial comments: 37-year-old female presents to the emergency department with complaints of injuries to her face and left knee. Patient state she tripped on concrete and fell causing her to strike her left knee on the ground followed by her face. States she did not lose consciousness. Was able to get up off the ground with minimal assistance. Complains of right sided facial pain and tenderness. States her Tetanus is up to date. Reports consuming alcohol tonight. Denies fever, chills, headache, vision changes, dizziness, neck pain, or back pain. - Related Data Previous Rx's Medication Instructions Recorded Sertraline [Zoloft] 25 mg PO DAILY #10 tab 03/05/22 traZODone HCL [Desyrel] 50 mg PO HS PRN #10 tab 03/05/22 Ibuprofen [Motrin] 600 mg PO Q8HR PRN #30 tab 11/10/22 Allergies Allergy/AdvReac Type Severity Reaction Status Date / Time No Known Allergies Allergy Verified 11/10/22 01:13 Review of Systems ROS Statement: Those systems with pertinent positive or pertinent negative responses have been documented in the HPI. ROS Other: All systems not noted in ROS Statement are negative. Past Medical History Past Medical History: No Reported History, Seizure Disorder Additional Past Medical History / Comment(s): meningitis, herniated discs. History of Any Multi-Drug Resistant Organisms: None Reported Past Surgical History: Section, Ear Surgery Past Anesthesia/Blood Transfusion Reactions: No Reported Reaction Past Psychological History: Anxiety, Bipolar, Depression, Panic Disorder Smoking Status: Never smoker Past Alcohol Use History: Occasional Past Drug Use History: None Reported General Exam Limitations: no limitations General appearance: alert, in no apparent distress Head exam: Present: atraumatic, normocephalic, normal inspection Eye exam: Present: normal appearance, PERRL, EOMI, periorbital swelling (right inferior aspect), periorbital tenderness (mild tenderness upon palpation of right inferior periorbital area; no step off). Absent: scleral icterus, conjunctival injection ENT exam: Present: normal oropharynx, mucous membranes moist, TM's normal bilaterally Neck exam: Present: normal inspection, full ROM. Absent: tenderness, meningismus, lymphadenopathy Respiratory exam: Present: normal lung sounds bilaterally. Absent: respiratory distress, wheezes, rales, rhonchi, stridor Cardiovascular Exam: Present: regular rate, normal rhythm, normal heart sounds. Absent: systolic murmur, diastolic murmur, rubs, gallop, clicks GI/Abdominal exam: Present: soft, normal bowel sounds. Absent: distended, tenderness, guarding, rebound, rigid Left Upper Leg exam: Present: normal inspection, full ROM. Absent: tenderness, swelling Knee exam: Present: normal inspection, full ROM, tenderness (tenderness upon palpation suprapatellar region). Absent: swelling, abrasion, deformity, crepitus Lower Leg exam: Present: normal inspection, full ROM. Absent: tenderness, swelling Foot/Toe exam: Present: normal inspection, full ROM Neurovascular tendon exam: Present: no vascular compromise. Absent: pulse deficit, abnormal cap refill, motor deficit Neurological exam: Present: alert, oriented X3 Psychiatric exam: Present: flat affect Skin exam: Present: warm, dry, normal color, abrasion (1cm abrasion over right zygomatic bone, infraorbital area) Course Vital Signs 11/10/22 11/10/22 11/10/22 01:13 04:17 05:17 Temperature 98.7 F Pulse Rate 110 H 102 H 101 H Respiratory 18 16 18 Rate Blood Pressure 128/80 124/72 133/92 O2 Sat by Pulse 98 98 98 Oximetry Medical Decision Making - Medical Decision Making 37-year-old female presents to the emergency department via EMS for evaluation of facial abrasion and he injury status post fall this evening. Upon exam, patient is well-appearing and in no acute distress. Does have mild right sided periorbital tenderness upon palpation. Abrasion and swelling is noted laterally. EOMI. No loss of consciousness or neurological findings. Also complains of left knee pain with no significant physical exam findings. CT facial bones was obtained and was negative. X-ray of the left knee was negative. Patient's tetanus shot is up to date. She was given 600 mg Motrin with improvement. She will be discharged home to follow up with her PCP for recheck as needed. Return parameters were discussed in detail. Patient verbalizes understanding and agrees with this plan. Attending: López. Was pt. sent in by a medical professional or institution? @ -No Did you speak to anyone other than the patient for history? @ -No Did you review nursing and triage notes? @ -Yes, agree Were old charts reviewed? @ -No Differential Diagnosis? @ -Maxillofacial trauma, abrasion, orbital fracture, this is not meant to be an exhaustive list -Left knee pain: Contusion, abrasion, sprain, dislocation, this is not meant to be an exhaustive list. EKG interpreted by me (3pts min.)? @ -Not applicable X-rays interpreted by me (1pt min.)? @ -X-ray of the left knee shows no acute findings. CT interpreted by me (1pt min.)? @ -CT of the face as interpreted by me shows no acute findings. U/S interpreted by me (1pt. min.)? @ -No What testing was considered but not performed? (CT, X-rays, U/S, labs)? Why? @ Tetanus shot was considered, but patient is up to date. What meds were considered but not given? Why? @ -None Did you discuss the management of the patient with other professionals? @ -None Did you reconcile home meds? @ -No Was smoking cessation discussed for >3mins.? @ -No Was critical care preformed (if so, how long)? @ -No Were there social determinants of health that impacted care today? How? (Homelessness, low income, unemployed, alcoholism, drug addiction, transportation, low edu. Level, literacy, decrease access to med. care, group home, rehab)? @ -No Was there de-escalation of care discussed even if they declined? (Discuss DNR or withdrawal of care, Hospice)? @ -No What co-morbidities impacted this encounter? (DM, HTN, Smoking, COPD, CAD, Cancer, CVA, Hep., AIDS, mental health diagnosis, sleep apnea, morbid obesity)? @ -Obesity Was patient admitted / discharged? @ -Discharged Undiagnosed new problem with uncertain prognosis? @ -None Drug Therapy requiring intensive monitoring for toxicity (Heparin, Nitro, Insulin, Cardizem)? @ -None Were any procedures done? @ -None Diagnosis/symptom? @ -Facial abrasion Acute, or Chronic, or Acute on Chronic? @ -Acute Uncomplicated (without systemic symptoms) or Complicated (systemic symptoms)? @ -Uncomplicated Side effects of treatment? @ -None Exacerbation, Progression, or Severe Exacerbation] @ -No Poses a threat to life or bodily function? @ -No Diagnosis/symptom? @ -Left knee pain Acute, or Chronic, or Acute on Chronic? @ -Acute Uncomplicated (without systemic symptoms) or Complicated (systemic symptoms)? @ -Uncomplicated Side effects of treatment? @ -None Exacerbation, Progression, or Severe Exacerbation] @ -None Poses a threat to life or bodily function? @ -No Attending: López - Lab Data Lab Results 11/10/22 11/10/22 Range/Units 02:06 05:01 POC Glucose (mg/dL) 151 H (70-110) mg/dL POC Glu Lace Tearing Supervisor ID Davy Felton Urine HCG, Qual Not Detected (Not Detectd) - Radiology Data Radiology results: report reviewed, image reviewed Interpreted by me: Per my interpretation, x-ray of the left knee shows no acute osseous deformity or dislocation. Per my interpretation, CT face shows no acute findings. CT facial bones was obtained. Report was reviewed in its entirety. Impression per Dr. Arnold is no fracture seen. Minimal sinusitis. X-ray of the left knee was obtained. Report was reviewed in its entirety. Impression per Dr. Arnold has osteoarthritis. No fracture seen. 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 Disposition Clinical Impression: Facial abrasion, Left knee pain Disposition: HOME SELF-CARE Condition: Stable Instructions (If sedation given, give patient instructions): Abrasion (ED), Knee Pain (ED) Additional Instructions: Rest. Expect that you will be more sore over the next 24 hours. Take Tylenol or Motrin if needed for discomfort. Apply ice for no more than 20 minutes per hour. Keep facial abrasion clean and dry; avoid applying make-up over affected area. Follow up with your PCP for a recheck on Friday. Return to the emergency department with any new, worsening, or concerning symptoms. Prescriptions: Ibuprofen [Motrin] 600 mg PO Q8HR PRN #30 tab PRN Reason: Pain Is patient prescribed a controlled substance at d/c from ED?: No Referrals: Amor Wilcox MD [Primary Care Provider] - 1-2 days Time of Disposition: 04:07
[2022-11-10] MEDS ORDERED: IBUPROFEN 600 MG TAB PO STA (01:53)
--- NOTE | 2022-11-10 03:21 | CT ---
EXAMINATION TYPE: CT facial bones wo con DATE OF EXAM: 11/10/2022 COMPARISON: None HISTORY: right periorbital pain s/p fall CT DLP: 628.6 mGycm Automated exposure control for dose reduction was used. Images obtained from the bottom of the mandible to the top of the frontal sinuses with no contrast. The mandibular ring is intact. Temporomandibular joints are intact. Zygomatic arches are intact. Nasa l bone is intact. No evidence of retro-orbital mass. No evidence of orbital blowout fracture. The orb ital margins are intact. There is minimal mucosal thickening at the floor of the right maxillary sinu s. No evidence of fracture of the maxilla. There is fairly normal aeration of the ethmoid frontal and sphenoid sinuses. Minimal mucosal thickeni ng in the right side sphenoid sinus. IMPRESSION: No fracture seen. Minimal sinusitis.
--- NOTE | 2022-11-10 03:24 | XR ---
EXAMINATION TYPE: XR knee complete LT DATE OF EXAM: 11/10/2022 COMPARISON: NONE HISTORY: Pain TECHNIQUE: 3 views FINDINGS: There is some mild spurring of the medial femoral and tibial condyles. I see no fracture no r dislocation. There is fragmentation of the tibial tubercle. There is some spurring on the patella. There is patellofemoral joint space narrowing. No evidence of joint effusion IMPRESSION: Osteoarthritis. No fracture seen. 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
[2022-11-10 05:03] LABS: Glucose,Whole Blood 151 mg/dL (70-110)
[2022-11-10 05:19] VITALS: BP 133/92; PULSE 101
== END 2022-11-10 05:19 | disposition home or self-care (01) ==
LOC: EC 01:10
DX: S00.81XA Abrasion of other part of head, initial encounter (principal); F41.9 Anxiety disorder, unspecified; F31.9 Bipolar disorder, unspecified; W01.0XXA Fall on same level from slipping, tripping and stumbling without subsequent striking against object, initial encounter
CPT/HCPCS: 36415; 70486; 81025; 99285

== ENCOUNTER 2022-12-14 11:17 | Emergency (ER) | payer OTHER ==
[2022-12-14 11:32] VITALS: TEMP 98.9
[2022-12-14] MEDS ORDERED: AMPICILLIN-SULBACTAM 3 GM in SODIUM CHLORIDE 0.9% 100 ML IVPB STA (12:16)
[2022-12-14] MEDS ORDERED: MORPHINE SULFATE 4 MG/ML SYRINGE IVP STA (12:16)
[2022-12-14] MEDS ORDERED: DEXAMETHASONE SOD PHOSPHATE 10 MG/ML 1 ML VIAL IVP STA (12:16)
[2022-12-14 12:46] LABS: Basophils % (A) 0 %; Eosinophils # (A) 0.1 k/uL (0-0.7); Eosinophils % (A) 1 %; HCT 36.9 % (34.0-46.0); HGB 12.1 gm/dL (11.4-16.0); Lymphocytes # (A) 1.5 k/uL (1.0-4.8); Lymphocytes % (A) 12 %; MCH 26.5 pg (25.0-35.0); MCHC 32.8 g/dL (31.0-37.0); MCV 80.8 fL (80.0-100.0); Mean Platelet Volume 9.6; Monocytes # (A) 0.5 k/uL (0-1.0); Monocytes % (A) 4 %; Neutrophils # (A) 10.9 k/uL (1.3-7.7); Neutrophils % (A) 82 %; Platelet Count 232 k/uL (150-450); RBC 4.57 m/uL (3.80-5.40); RDW 15.3 % (11.5-15.5); WBC 13.2 k/uL (3.8-10.6)
[2022-12-14 12:59] LABS: ALT 24 U/L (4-34); AST 20 U/L (14-36); African American GFR (CKD) >90 (>60 ml/min/1.73 sqM); Alkaline Phosphatase 148 U/L (38-126); Anion Gap 7 mmol/L; Blood Urea Nitrogen 9 mg/dL (7-17); Calcium 9.1 mg/dL (8.4-10.2); Carbon Dioxide 29 mmol/L (22-30); Chloride 101 mmol/L (98-107); Glucose 102 mg/dL (74-99); Magnesium 1.9 mg/dL (1.6-2.3); Non-African American GFR(CKD) >90 (>60 ml/min/1.73 sqM); Potassium 4.4 mmol/L (3.5-5.1); Sodium 137 mmol/L (137-145); Total Bilirubin 0.6 mg/dL (0.2-1.3); Total Protein 7.8 g/dL (6.3-8.2)
[2022-12-14 14:07] LABS: Appearance,Urine Cloudy (Clear); Bacteria,Urine Moderate /hpf; Bilirubin,Urine Negative (Negative); Blood,Urine Negative (Negative); Color,Urine Yellow; Glucose,Urine (UA) Negative (Negative); Ketones,Urine 1+ (Negative); Leukocyte Esterase,Urine Negative (Negative); Mucus,Urine Many /hpf; Nitrite,Urine Negative (Negative); Protein,Urine 1+ (Negative); RBC,Urine 1 /hpf (0-5); Specific Gravity,Urine 1.035 (1.001-1.035); Squamous Epithelial Cell,Urine 6 /hpf (0-4); WBC,Urine 2 /hpf (0-5)
--- NOTE | 2022-12-14 14:26 | ED ---
General Adult HPI - General Chief complaint: ENT Stated complaint: Sore throat,R ear pain Time Seen by Provider: 12/14/22 11:36 Source: patient Mode of arrival: ambulatory Limitations: no limitations - History of Present Illness Initial comments: This is a 37-year-old female with a past medical history including anxiety and depression presents emergency department for swelling in the right side of her throat and neck as well as pain in her right ear. The patient stated that she was using a Q-tip 1 week ago and felt immediate pain to the right ear. The patient had continued drainage down the back of her throat and had continued swelling over the right side of the throat. The patient stated that her neck became more swollen and she had difficulty with swallowing and a change of voice of the last 2 days. The patient did state that she had changes that became worse over the last 1 day so she came to the emergency department for further evaluation. The patient stated that [id number] medications are not helping her. The patient denied any fevers and chills however. - Related Data Previous Rx's Medication Instructions Recorded Sertraline [Zoloft] 25 mg PO DAILY #10 tab 03/05/22 traZODone HCL [Desyrel] 50 mg PO HS PRN #10 tab 03/05/22 Ibuprofen [Motrin] 600 mg PO Q8HR PRN #30 tab 11/10/22 Allergies Allergy/AdvReac Type Severity Reaction Status Date / Time No Known Allergies Allergy Verified 12/14/22 11:31 Review of Systems ROS Statement: Those systems with pertinent positive or pertinent negative responses have been documented in the HPI. ROS Other: All systems not noted in ROS Statement are negative. Past Medical History Past Medical History: No Reported History, Seizure Disorder Additional Past Medical History / Comment(s): meningitis, herniated discs. History of Any Multi-Drug Resistant Organisms: None Reported Past Surgical History: Section, Ear Surgery Past Anesthesia/Blood Transfusion Reactions: No Reported Reaction Past Psychological History: Anxiety, Bipolar, Depression, Panic Disorder Smoking Status: Never smoker Past Alcohol Use History: Occasional Past Drug Use History: None Reported General Exam Limitations: no limitations General appearance: alert, in no apparent distress, obese Head exam: Present: atraumatic, normocephalic Eye exam: Present: normal appearance, PERRL Pupils: Present: normal accommodation ENT exam: Present: other (Significant swelling noted to the posterior right pharynx). Absent: TM's normal bilaterally, normal external ear exam (Right TM was perforated without any drainage noted.) Neck exam: Present: tenderness, other (Swelling and tenderness to palpation to the right lower side and lateral neck, slight change of voice noted as well) Respiratory exam: Present: normal lung sounds bilaterally Cardiovascular Exam: Present: regular rate, normal rhythm, normal heart sounds GI/Abdominal exam: Present: soft, normal bowel sounds Extremities exam: Present: normal inspection, full ROM Back exam: Present: normal inspection, full ROM Neurological exam: Present: alert, oriented X3, CN II-XII intact Psychiatric exam: Present: normal affect, normal mood Skin exam: Present: warm, dry Course Vital Signs 12/14/22 11:28 Temperature 98.9 F Pulse Rate 107 H Respiratory 24 Rate Blood Pressure 171/127 O2 Sat by Pulse 98 Oximetry Medical Decision Making - Medical Decision Making Was pt. sent in by a medical professional or institution (, PA, MEDICAL ATTENDANT, urgent care, hospital, or correction...) When possible be specific @ -No Did you speak to anyone other than the patient for history (EMS, parent, family, police, friend...)? What history was obtained from this source @ -No Did you review nursing and triage notes (agree or disagree)? Why? @ -I reviewed and agree with nursing and triage notes Were old charts reviewed (outside hosp., previous admission, EMS record, old EKG, old radiological studies, urgent care reports/EKG's, correction records)? Report findings @ -No old charts were reviewed Differential Diagnosis (chest pain, altered mental status, abdominal pain women, abdominal pain men, vaginal bleeding, weakness, fever, dyspnea, syncope, headache, dizziness, GI bleed, back pain, seizure, CVA, palpatations, mental health)? @ -Retropharyngeal abscess, peritonsillar abscess, strep throat EKG interpreted by me (3pts min.). @ -None X-rays interpreted by me (1pt min.). @ -None done CT interpreted by me (1pt min.). @ -CT of the soft tissues of the neck with contrast was obtained and was interpreted by myself showing bilateral enlarged tonsils and more on the right side. There was a right-sided tonsillar abscess. There was significant anterior and posterior triangle cervical lymphadenopathy. There is submandibular lymphadenopathy. Enlarged adenoids with obliteration of the nasopharyngeal airway. There is enlargement of the tonsils and adenoids compared to the old exam. U/S interpreted by me (1pt. min.). @ -None done What testing was considered but not performed or refused? (CT, X-rays, U/S, labs)? Why? @ -None What meds were considered but not given or refused? Why? @ -None Did you discuss the management of the patient with other professionals (professionals i.e. Dr., PA, MEDICAL ATTENDANT, lab, RT, psych nurse, nursing home social worker, flight test mechanic, teacher, equal opportunity officer, family caseworker)? Give summary @ -Yes, accepting transfer physician, Dr. Gaston in the ED and accepting ENT, Dr. Zhang Was smoking cessation discussed for >3mins.? @ -No Was critical care preformed (if so, how long)? @ -No Were there social determinants of health that impacted care today? How? (Homelessness, low income, unemployed, alcoholism, drug addiction, transportation, low edu. Level, literacy, decrease access to med. care, fpc, rehab)? @ -No Was there de-escalation of care discussed even if they declined (Discuss DNR or withdrawal of care, Hospice)? DNR status @ -No What co-morbidities impacted this encounter? (DM, HTN, Smoking, COPD, CAD, Cancer, CVA, ARF, Chemo, Hep., AIDS, mental health diagnosis, sleep apnea, morbid obesity)? @ -Morbid obesity Was patient admitted / discharged? Hospital course, mention meds given and route, prescriptions, significant lab abnormalities, going to OR and other pertinent info. @ -The patient was seen and evaluated emergency department. Physical exam, the patient was resting in bed without any acute distress but did state that she had right-sided neck pain and swelling. Vital signs were stable and the patient had an oxygen saturations 98% on room air. Due to the physical exam findings that were concerning for large abscess, laboratory workup was obtained as was a CT of the soft tissues of the neck with contrast. White blood cell count was elevated at 13. CT of the soft tissues of the neck showed significant lymphadenopathy and tonsillar abscess. Because of this in the setting of requiring a higher level of care, transfer was initiated to [facility] emergency department. While in the emergency department here, the patient did receive IV Unasyn and Decadron. The patient was accepted for transfer to [facility] and was transferred via EMS in stable condition. Undiagnosed new problem with uncertain prognosis? @ -No Drug Therapy requiring intensive monitoring for toxicity (Heparin, Nitro, Insulin, Cardizem)? @ -No Were any procedures done? @ -No Diagnosis/symptom? @ -Right-sided tonsillar abscess with significant lymphadenopathy and perforated right TM Acute, or Chronic, or Acute on Chronic? @ -Acute Uncomplicated (without systemic symptoms) or Complicated (systemic symptoms)? @ -Complicated Side effects of treatment? @ -No Exacerbation, Progression, or Severe Exacerbation? @ -No Poses a threat to life or bodily function? How? (Chest pain, [place], [place], pneumonia, PE, COPD, DKA, ARF, appy, cholecystitis, CVA, Diverticulitis, Homicidal, Suicidal, threat to staff... and all critical care pts) @ -Yes, significant lymphadenopathy an abscess have already affected her airway and continue to do so - Lab Data Result diagrams: 12/14/22 12:36 12/14/22 12:36 Lab Results 12/14/22 12/14/22 12/14/22 Range/Units 12:36 12:36 13:25 WBC 13.2 H (3.8-10.6) k/uL RBC 4.57 (3.80-5.40) m/uL Hgb 12.1 (11.4-16.0) gm/dL Hct 36.9 (34.0-46.0) % MCV 80.8 (80.0-100.0) fL MCH 26.5 (25.0-35.0) pg MCHC 32.8 (31.0-37.0) g/dL RDW 15.3 (11.5-15.5) % Plt Count 232 (150-450) k/uL MPV 9.6 Neutrophils % 82 % Lymphocytes % 12 % Monocytes % 4 % Eosinophils % 1 % Basophils % 0 % Neutrophils # 10.9 H (1.3-7.7) k/uL Lymphocytes # 1.5 (1.0-4.8) k/uL Monocytes # 0.5 (0-1.0) k/uL Eosinophils # 0.1 (0-0.7) k/uL Basophils # 0.0 (0-0.2) k/uL Sodium 137 (137-145) mmol/L Potassium 4.4 (3.5-5.1) mmol/L Chloride 101 (98-107) mmol/L Carbon Dioxide 29 (22-30) mmol/L Anion Gap 7 mmol/L BUN 9 (7-17) mg/dL Creatinine 0.38 L (0.52-1.04) mg/dL Est GFR (CKD-EPI)AfAm >90 (>60 ml/min/1.73 sqM) Est GFR (CKD-EPI)NonAf >90 (>60 ml/min/1.73 sqM) Glucose 102 H (74-99) mg/dL Calcium 9.1 (8.4-10.2) mg/dL Magnesium 1.9 (1.6-2.3) mg/dL Total Bilirubin 0.6 (0.2-1.3) mg/dL AST 20 (14-36) U/L ALT 24 (4-34) U/L Alkaline Phosphatase 148 H (38-126) U/L C-Reactive Protein 19.0 H (<1.0) mg/dL Total Protein 7.8 (6.3-8.2) g/dL Albumin 4.0 (3.5-5.0) g/dL Urine Color Yellow Urine Appearance Cloudy H (Clear) Urine pH 6.0 (5.0-8.0) Ur Specific [place] 1.035 (1.001-1.035) Urine Protein 1+ H (Negative) Urine Glucose (UA) Negative (Negative) Urine Ketones 1+ H (Negative) Urine Blood Negative (Negative) Urine Nitrite Negative (Negative) Urine Bilirubin Negative (Negative) Urine Urobilinogen 3.0 (<2.0) mg/dL Ur Leukocyte Esterase Negative (Negative) Urine RBC 1 (0-5) /hpf Urine WBC 2 (0-5) /hpf Ur Squamous Epith Cells 6 H (0-4) /hpf Urine Bacteria Moderate H (None) /hpf Urine Mucus Many H (None) /hpf Urine HCG, Qual (Not Detectd) 12/14/22 Range/Units 13:25 WBC (3.8-10.6) k/uL RBC (3.80-5.40) m/uL Hgb (11.4-16.0) gm/dL Hct (34.0-46.0) % MCV (80.0-100.0) fL MCH (25.0-35.0) pg MCHC (31.0-37.0) g/dL RDW (11.5-15.5) % Plt Count (150-450) k/uL MPV Neutrophils % % Lymphocytes % % Monocytes % % Eosinophils % % Basophils % % Neutrophils # (1.3-7.7) k/uL Lymphocytes # (1.0-4.8) k/uL Monocytes # (0-1.0) k/uL Eosinophils # (0-0.7) k/uL Basophils # (0-0.2) k/uL Sodium (137-145) mmol/L Potassium (3.5-5.1) mmol/L Chloride (98-107) mmol/L Carbon Dioxide (22-30) mmol/L Anion Gap mmol/L BUN (7-17) mg/dL Creatinine (0.52-1.04) mg/dL Est GFR (CKD-EPI)AfAm (>60 ml/min/1.73 sqM) Est GFR (CKD-EPI)NonAf (>60 ml/min/1.73 sqM) Glucose (74-99) mg/dL Calcium (8.4-10.2) mg/dL Magnesium (1.6-2.3) mg/dL Total Bilirubin (0.2-1.3) mg/dL AST (14-36) U/L ALT (4-34) U/L Alkaline Phosphatase (38-126) U/L C-Reactive Protein (<1.0) mg/dL Total Protein (6.3-8.2) g/dL Albumin (3.5-5.0) g/dL Urine Color Urine Appearance (Clear) Urine pH (5.0-8.0) Ur Specific [place] (1.001-1.035) Urine Protein (Negative) Urine Glucose (UA) (Negative) Urine Ketones (Negative) Urine Blood (Negative) Urine Nitrite (Negative) Urine Bilirubin (Negative) Urine Urobilinogen (<2.0) mg/dL Ur Leukocyte Esterase (Negative) Urine RBC (0-5) /hpf Urine WBC (0-5) /hpf Ur Squamous Epith Cells (0-4) /hpf Urine Bacteria (None) /hpf Urine Mucus (None) /hpf Urine HCG, Qual Not Detected (Not Detectd) Disposition Clinical Impression: Tonsillar abscess, Cervical lymphadenopathy Disposition: OTHER INSTITUTION NOT DEFINED Condition: Stable Is patient prescribed a controlled substance at d/c from ED?: No Referrals: Amor Wilcox MD [Primary Care Provider] - 1-2 days Time of Disposition: 15:00 - Out of Hospital Transfer - Req. Specs Out of Hospital Transfer - Requested Specifics: Other Emergency Center ([facility])
--- NOTE | 2022-12-14 14:57 | CT ---
EXAMINATION TYPE: CT soft tissue neck w con DATE OF EXAM: 12/14/2022 COMPARISON: 11/10/2022 HISTORY: sore throat, right ear pain. CT DLP: 723.8 mGycm Automated exposure control for dose reduction was used. CONTRAST: Performed with IV Contrast, patient injected with 100 mL of Isovue 300. Images obtained from the aortic arch to the top of the orbits with the IV contrast. There is normal branching pattern of the great vessels on the aortic arch. There is symmetric mild en largement of the thyroid gland. There are numerous anterior and posterior triangle enlarged cervical lymph nodes. There are enlarged submandibular lymph nodes. Cervical lymph nodes measure up to 2.5 cm in diameter. There is significant enlargement of the tonsils. The right tonsil measures 6 x 2.5 cm. The left tonsi l measures 4. 2 x 2 centimeters. There is 2 cm rounded hypodense area within the right tonsil and con sistent with abscess. There is enlarged adenoids that measure 2.5 cm. There is obliteration of the po sterior nasopharyngeal airway. The submandibular salivary glands are symmetric. The parotid glands are symmetric with fatty infiltra tion. There is no evidence of orbital mass. The globes are symmetric. Maxilla is intact. There is luis eduardo rly normal aeration of the visualized paranasal sinuses. There is minimal mucosal thickening in the p osterior sphenoid sinus. Cervical spine is intact. There is C6-7 disc space narrowing and spur format ion. IMPRESSION: Bilateral enlarged tonsils and more on the right side. Right-sided tonsillar abscess. Significant anterior and posterior triangle cervical lymphadenopathy. Submandibular lymphadenopathy. Enlarged adenoids with obliteration of the nasopharyngeal airway. There is enlargement of the tonsils and adenoids compared to old exam. Cervical lymphadenopathy increased compared to old exam.
[2022-12-14 15:52] VITALS: BP 140/86; PULSE 102; RESP 18
== END 2022-12-14 16:50 | disposition other institution (70) ==
LOC: EC 11:17
DX: J36 Peritonsillar abscess (principal); R59.1 Generalized enlarged lymph nodes; F41.9 Anxiety disorder, unspecified; F31.9 Bipolar disorder, unspecified
CPT/HCPCS: 36415; 80053; 83735; 85025; 86140; 81001; 81025; 87040; 70491; 99284; 96365; 96366; 96375 ×2; J2270; J1100; J0295; Q9967

== ENCOUNTER 2023-03-28 14:34 | Emergency (ER) | payer OTHER ==
[2023-03-28 15:20] LABS: Basophils % (A) 0 %; Eosinophils # (A) 0.1 k/uL (0-0.7); Eosinophils % (A) 2 %; HGB 11.4 gm/dL (11.4-16.0); Lymphocytes # (A) 2.1 k/uL (1.0-4.8); Lymphocytes % (A) 26 %; MCH 26.6 pg (25.0-35.0); MCHC 32.5 g/dL (31.0-37.0); MCV 81.9 fL (80.0-100.0); Mean Platelet Volume 9.5; Monocytes # (A) 0.3 k/uL (0-1.0); Monocytes % (A) 3 %; Neutrophils # (A) 5.5 k/uL (1.3-7.7); Neutrophils % (A) 68 %; Platelet Count 216 k/uL (150-450); RBC 4.27 m/uL (3.80-5.40); RDW 14.8 % (11.5-15.5); WBC 8.1 k/uL (3.8-10.6)
[2023-03-28 15:23] LABS: ALT 23 U/L (4-34); AST 20 U/L (14-36); African American GFR (CKD) >90 (>60 ml/min/1.73 sqM); Albumin 3.9 g/dL (3.5-5.0); Alkaline Phosphatase 126 U/L (38-126); Anion Gap 9 mmol/L; Blood Urea Nitrogen 15 mg/dL (7-17); Calcium 8.7 mg/dL (8.4-10.2); Carbon Dioxide 27 mmol/L (22-30); Chloride 102 mmol/L (98-107); Glucose 134 mg/dL (74-99); Magnesium 1.9 mg/dL (1.6-2.3); Non-African American GFR(CKD) >90 (>60 ml/min/1.73 sqM); Potassium 3.7 mmol/L (3.5-5.1); Sodium 138 mmol/L (137-145); Total Bilirubin 0.3 mg/dL (0.2-1.3); Total Protein 7.3 g/dL (6.3-8.2)
--- NOTE | 2023-03-28 15:51 | ED ---
Chest Pain HPI - General Chief Complaint: Chest Pain Stated Complaint: SOB L arm pain and weakness Time Seen by Provider: 03/28/23 15:39 Source: patient, RN notes reviewed, old records reviewed Mode of arrival: ambulatory Limitations: no limitations - History of Present Illness Initial Comments: This is a 37-year-old female she presents today for evaluation in regards to chest pain. Patient has no history of chest pain chest pain left-sided to touch breath. Patient is no medical history takes no medications no dramatic injuries no shortness of breath, chest pain is improving while here in the ER. No prior ER visits for chest pain MD Complaint: chest pain -: hour(s) Onset: during rest, during exertion Pain Location: left chest Pain Radiation: none Severity: moderate Severity scale (1-10): 4 Quality: sharp Consistency: intermittent, now resolved Improves With: nothing Worsens With: nothing Anginal Symptoms: other (0) - Related Data Home Medications Medication Instructions Recorded Confirmed Acetaminophen Tab [Tylenol Tab] 1,000 mg PO Q6HR PRN 03/28/23 03/28/23 Cetirizine HCl 10 mg PO DAILY PRN 03/28/23 03/28/23 Docusate [Colace] 100 mg PO BID 03/28/23 03/28/23 Fluticasone Nasal [place] [Flonase 1 spray EA NOSTRIL DAILY 03/28/23 03/28/23 Nasal [place]] Ibuprofen [Motrin] 800 mg PO BID PRN 03/28/23 03/28/23 Multivit/Iron Sulf/Folic Acid 1 tab PO DAILY 03/28/23 03/28/23 [Multivitamin with Iron] Sertraline [Zoloft] 25 mg PO BID 03/28/23 03/28/23 Trazodone (Unverified Dose) 1 tab PO HS 03/28/23 03/28/23 Vitamin B Complex 1 cap PO DAILY 03/28/23 03/28/23 Allergies Allergy/AdvReac Type Severity Reaction Status Date / Time No Known Allergies Allergy Verified 03/28/23 17:03 Review of Systems ROS Statement: Those systems with pertinent positive or pertinent negative responses have been documented in the HPI. ROS Other: All systems not noted in ROS Statement are negative. EKG Findings - EKG Comments: EKG Findings:: EKG is sinus 98 ND 132 QRS 100 QTc 450 - EKG Results: EKG: interpreted by TODD Past Medical History Past Medical History: Seizure Disorder Additional Past Medical History / Comment(s): meningitis, herniated discs. History of Any Multi-Drug Resistant Organisms: None Reported Past Surgical History: Section, Ear Surgery Past Anesthesia/Blood Transfusion Reactions: No Reported Reaction Past Psychological History: Anxiety, Bipolar, Depression, Panic Disorder Smoking Status: Former smoker Past Alcohol Use History: Occasional Past Drug Use History: None Reported General Exam Limitations: no limitations General appearance: alert, in no apparent distress Head exam: Present: atraumatic, normocephalic, normal inspection Eye exam: Present: normal appearance, PERRL, EOMI. Absent: scleral icterus, conjunctival injection, periorbital swelling ENT exam: Present: normal exam, mucous membranes moist Neck exam: Present: normal inspection. Absent: tenderness, meningismus, lymphadenopathy Respiratory exam: Present: normal lung sounds bilaterally. Absent: respiratory distress, wheezes, rales, rhonchi, stridor Cardiovascular Exam: Present: regular rate, normal rhythm, normal heart sounds. Absent: systolic murmur, diastolic murmur, rubs, gallop, clicks GI/Abdominal exam: Present: soft, normal bowel sounds. Absent: distended, tenderness, guarding, rebound, rigid Extremities exam: Present: normal inspection, full ROM, normal capillary refill. Absent: tenderness, pedal edema, joint swelling, calf tenderness Back exam: Present: normal inspection Neurological exam: Present: alert, oriented X3, CN II-XII intact Psychiatric exam: Present: normal affect, normal mood Skin exam: Present: warm, dry, intact, normal color. Absent: rash Course Vital Signs 03/28/23 03/28/23 03/28/23 14:39 16:00 17:08 Temperature 98.4 F 97.9 F Pulse Rate 99 86 76 Respiratory 20 16 16 Rate Blood Pressure 143/77 161/89 130/78 O2 Sat by Pulse 97 95 95 Oximetry - Reevaluation(s) Reevaluation #1: 03/28/23 20:36 Medical records reviewed Reevaluation #2: 03/28/23 20:36 Patient informed results questions answered Reevaluation #3: 03/28/23 20:36 Chest pain remains resolved Reevaluation #4: 03/28/23 20:36 Was pt. sent in by a medical professional or institution? @ -no Did you speak to anyone other than the patient for history? @ -no Did you review nursing and triage notes? @ -agree Were old charts reviewed? @ -no Differential Diagnosis? @ -prior EKG interpreted by me (3pts min.)? @ -yes X-rays interpreted by me (1pt min.)? @ -yes CT interpreted by me (1pt min.)? @ -no U/S interpreted by me (1pt. min.)? @ -no What testing was considered but not performed? (CT, X-rays, U/S, labs)? Why? @ -no What meds were considered but not given? Why? @ -no Did you discuss the management of the patient with other professionals? @ -no Did you reconcile home meds? @ -no Was smoking cessation discussed for >3mins.? @ -no Was critical care preformed (if so, how long)? @ -no Were there social determinants of health that impacted care today? How? (H omelessness, low income, unemployed, alcoholism, drug addiction, transportation, low edu. Level, literacy, decrease access to med. care, usp, rehab)? @ -no Was there de-escalation of care discussed even if they declined? (Discuss DNR or withdrawal of care, Hospice)? @ -no What co-morbidities impacted this encounter? (DM, HTN, Smoking, COPD, CAD, Cancer, CVA, Hep., AIDS, mental health diagnosis, sleep apnea, morbid obesity)? @ -none Was patient admitted / discharged? @ -37 female to the emergency department with atypical chest pain no significant cardiac risk factors. Patient has negative troponin normal EKG here in the urine can be discharged home Discharge Undiagnosed new problem with uncertain prognosis? @ -no Drug Therapy requiring intensive monitoring for toxicity (Heparin, Nitro, Insulin, Cardizem)? @ -no Were any procedures done? @ -no Diagnosis/symptom? @ -Chest pain Acute, or Chronic, or Acute on Chronic? @ -no Uncomplicated (without systemic symptoms) or Complicated (systemic symptoms)? @ -uncomplicated Side effects of treatment? @ -no Exacerbation, Progression, or Severe Exacerbation] @ -no Poses a threat to life or bodily function? @ -Yes, if chest pain is result of ACS Reevaluation #5: 03/28/23 20:36 Differential Chest Pain: Stable Angina, Unstable Angina, STEMI, NSTEMI Aortic Dissection, Pneumothorax, Musculoskeletal, Esophageal Spasm GERD, Cholecystitis, Pancreatitis, Zoster, this is not meant to be an all-inclusive list. Chest Pain MDM - MDM 37 female to the ER for evaluation patient Dese for evaluation regards to chest pain, resolving here in the ER patient feels well and can be discharged home, reassured Disposition Clinical Impression: Atypical chest pain, Chest pain Disposition: HOME SELF-CARE Condition: Good Instructions (If sedation given, give patient instructions): Chest Pain (ED) Is patient prescribed a controlled substance at d/c from ED?: No Referrals: Amor Wilcox MD [Primary Care Provider] - 1-2 days Time of Disposition: 16:35
[2023-03-28 16:00] VITALS: RESP 16
[2023-03-28 16:04] LABS: INR 1.7 (<1.2); Partial Thromboplastin Time 29.5 sec (22.0-30.0); Prothrombin Time 16.9 sec (9.0-12.0)
--- NOTE | 2023-03-28 16:49 | XR ---
EXAMINATION TYPE: XR chest 2V DATE OF EXAM: 03/28/2023 4:41 PM COMPARISON: Chest radiographs from 02/28/2022 TECHNIQUE: XR chest 2V Frontal and lateral views of the chest. CLINICAL INDICATION:Female, 37 years old with history of Chest pain; FINDINGS: Lungs/Pleura: There is no evidence of pleural effusion, focal consolidation, or pneumothorax. Pulmonary vascularity: Unremarkable. Heart/mediastinum: Cardiomediastinal silhouette is unremarkable. Musculoskeletal: No acute osseous pathology. IMPRESSION: No acute cardiopulmonary disease/process.
[2023-03-28 17:10] VITALS: BP 130/78; PULSE 76; TEMP 97.9
== END 2023-03-28 18:01 | disposition home or self-care (01) ==
LOC: EC 14:34
DX: R07.89 Other chest pain (principal); F41.9 Anxiety disorder, unspecified; F32.A Depression, unspecified; Z87.891 Personal history of nicotine dependence; Z79.899 Other long term (current) drug therapy
CPT/HCPCS: 36415; 71046; 80053; 81025; 83735; 83880; 84484; 85025; 85610; 85730; 93005; 99285

== ENCOUNTER 2023-08-27 11:35 | Emergency (ER) | payer OTHER ==
[2023-08-27 12:04] VITALS: BP 171/108; PULSE 106; RESP 18; TEMP 98
--- NOTE | 2023-08-27 12:35 | ED ---
General Adult HPI - General Chief complaint: Recheck/Abnormal Lab/Rx Stated complaint: swollen left foot burning Time Seen by Provider: 08/27/23 12:21 Source: patient, RN notes reviewed Mode of arrival: ambulatory Limitations: no limitations - History of Present Illness Initial comments: 38-year-old female presents emergency department to complaint of a rash, sore throat. Patient states that the last few days. States is very painful to swallow states that she noticed sores on her hands, feet. Patient states that she feels achy all over. - Related Data Home Medications Medication Instructions Recorded Confirmed Acetaminophen Tab [Tylenol Tab] 1,000 mg PO Q6HR PRN 03/28/23 03/28/23 Cetirizine HCl 10 mg PO DAILY PRN 03/28/23 03/28/23 Docusate [Colace] 100 mg PO BID 03/28/23 03/28/23 Fluticasone Nasal [place] [Flonase 1 spray EA NOSTRIL DAILY 03/28/23 03/28/23 Nasal [place]] Ibuprofen [Motrin] 800 mg PO BID PRN 03/28/23 03/28/23 Multivit/Iron Sulf/Folic Acid 1 tab PO DAILY 03/28/23 03/28/23 [Multivitamin with Iron] Sertraline [Zoloft] 25 mg PO BID 03/28/23 03/28/23 Trazodone (Unverified Dose) 1 tab PO HS 03/28/23 03/28/23 Vitamin B Complex 1 cap PO DAILY 03/28/23 03/28/23 Allergies Allergy/AdvReac Type Severity Reaction Status Date / Time No Known Allergies Allergy Verified 08/27/23 11:52 Review of Systems ROS Statement: Those systems with pertinent positive or pertinent negative responses have been documented in the HPI. ROS Other: All systems not noted in ROS Statement are negative. Past Medical History Past Medical History: Seizure Disorder Additional Past Medical History / Comment(s): meningitis, herniated discs. History of Any Multi-Drug Resistant Organisms: None Reported Past Surgical History: Section, Ear Surgery Past Anesthesia/Blood Transfusion Reactions: No Reported Reaction Past Psychological History: Anxiety, Bipolar, Depression, Panic Disorder Smoking Status: Former smoker Past Alcohol Use History: Occasional Past Drug Use History: None Reported General Exam Limitations: no limitations General appearance: alert, in no apparent distress Head exam: Present: atraumatic, normocephalic, normal inspection Eye exam: Present: normal appearance, PERRL, EOMI. Absent: scleral icterus, con junctival injection, periorbital swelling ENT exam: Present: mucous membranes moist, TM's normal bilaterally, normal external ear exam. Absent: normal oropharynx (Erythematous sores noted) Neck exam: Present: normal inspection. Absent: tenderness, meningismus, lymphadenopathy Respiratory exam: Present: normal lung sounds bilaterally. Absent: respiratory distress, wheezes, rales, rhonchi, stridor Cardiovascular Exam: Present: regular rate, normal rhythm, normal heart sounds. Absent: systolic murmur, diastolic murmur, rubs, gallop, clicks Skin exam: Present: warm, dry, intact, normal color, rash (Rash to hands and feet) Course Vital Signs 08/27/23 11:52 Temperature 98 F Pulse Rate 106 H Respiratory 18 Rate Blood Pressure 171/108 O2 Sat by Pulse 97 Oximetry Medical Decision Making - Medical Decision Making Was pt. sent in by a medical professional or institution (Dr. PA, [facility], urgent care, hospital, or fci...) When possible be specific @ -No Did you speak to anyone other than the patient for history (EMS, parent, family, police, friend...)? What history was obtained from this source @ -No Did you review nursing and triage notes (agree or disagree)? Why? @ -I reviewed and agree with nursing and triage notes Were old charts reviewed (outside hosp., previous admission, EMS record, old EKG, old radiological studies, urgent care reports/EKG's, [facility] records)? Report findings @ -No old charts were reviewed Differential Diagnosis (chest pain, altered mental status, abdominal pain women, abdominal pain men, vaginal bleeding, weakness, fever, dyspnea, syncope, headache, dizziness, GI bleed, back pain, seizure, CVA, palpatations, mental health, musculoskeletal)? @ -Viral illness, whae-yknd-pwe-mouth, strep EKG interpreted by me (3pts min.). @ -[None X-rays interpreted by me (1pt min.). @ -None done CT interpreted by me (1pt min.). @ -None done U/S interpreted by me (1pt. min.). @ -None done What testing was considered but not performed or refused? (CT, X-rays, U/S, labs)? Why? @ -None What meds were considered but not given or refused? Why? @ -None Did you discuss the management of the patient with other professionals (professionals i.e. , PA, [facility], lab, RT, psych nurse, administrator social welfare, steward/stewardess deck, teacher, military source operations officer, director of casework services)? Give summary @ -No Was smoking cessation discussed for >3mins.? @ -No Was critical care preformed (if so, how long)? @ -No Were there social determinants of health that impacted care today? How? (Homelessness, low income, unemployed, alcoholism, drug addiction, transportation, low edu. Level, literacy, decrease access to med. care, senior living, rehab)? @ -No Was there de-escalation of care discussed even if they declined (Discuss DNR or withdrawal of care, Hospice)? DNR status @ -No What co-morbidities impacted this encounter? (DM, HTN, Smoking, COPD, CAD, Cancer, CVA, ARF, Chemo, Hep., AIDS, mental health diagnosis, sleep apnea, morbid obesity)? @ -None Was patient admitted / discharged? Hospital course, mention meds given and route, prescriptions, significant lab abnormalities, going to OR and other pertinent info. @ -Discharge patient has ujas-igda-kqk-mouth disease. Patient is discharged in stable condition return parameters were discussed. Undiagnosed new problem with uncertain prognosis? @ -No Drug Therapy requiring intensive monitoring for toxicity (Heparin, Nitro, Insulin, Cardizem)? @ -No Were any procedures done? @ -No Diagnosis/symptom? @ -Kfvm-abwo-dtv-mouth Acute, or Chronic, or Acute on Chronic? @ -Acute Uncomplicated (without systemic symptoms) or Complicated (systemic symptoms)? @ -Uncomplicated Side effects of treatment? @ -No Exacerbation, Progression, or Severe Exacerbation? @ -No Poses a threat to life or bodily function? How? (Chest pain, [place], [place], pneumonia, PE, COPD, DKA, ARF, appy, cholecystitis, CVA, Diverticulitis, Homicidal, Suicidal, threat to staff... and all critical care pts) @ -No Disposition Clinical Impression: Hand, foot and mouth disease Disposition: HOME SELF-CARE Condition: Stable Instructions (If sedation given, give patient instructions): Hand, Foot, and Mouth Disease (ED) Additional Instructions: Please return to the Emergency Department if symptoms worsen or any other concerns. Is patient prescribed a controlled substance at d/c from ED?: No Referrals: Amor Wilcox MD [Primary Care Provider] - 1-2 days Time of Disposition: 12:35
== END 2023-08-27 12:57 | disposition home or self-care (01) ==
LOC: EC 11:35
DX: B08.4 Enteroviral vesicular stomatitis with exanthem (principal); F41.9 Anxiety disorder, unspecified; F31.9 Bipolar disorder, unspecified; Z87.891 Personal history of nicotine dependence; Z79.899 Other long term (current) drug therapy
CPT/HCPCS: 99283

== ENCOUNTER 2024-04-02 13:04 | Emergency (ER) | payer OTHER ==
--- NOTE | 2024-04-02 13:58 | ED ---
Lower Extremity Injury HPI - General Chief Complaint: Extremity Injury, Lower Stated Complaint: L leg injury Time Seen by Provider: 04/02/24 13:55 Source: patient, RN notes reviewed Mode of arrival: ambulatory Limitations: no limitations - History of Present Illness Initial Comments: This is a 38-year-old female who presents to the emergency department for a left leg injury. Patient states that she was walking on a sidewalk and tripped over a bump. She has since had pain to the lower portion of the left calf and she has been unable to walk since this happened. Denies hitting her head or sustaining any other injuries. - Related Data Home Medications Medication Instructions Recorded Confirmed Acetaminophen Tab [Tylenol Tab] 1,000 mg PO Q6HR PRN 03/28/23 03/28/23 Cetirizine HCl 10 mg PO DAILY PRN 03/28/23 03/28/23 Docusate [Colace] 100 mg PO BID 03/28/23 03/28/23 Fluticasone Nasal [place] [Flonase 1 spray EA NOSTRIL DAILY 03/28/23 03/28/23 Nasal [place]] Ibuprofen [Motrin] 800 mg PO BID PRN 03/28/23 03/28/23 Multivit/Iron Sulf/Folic Acid 1 tab PO DAILY 03/28/23 03/28/23 [Multivitamin with Iron] Sertraline [Zoloft] 25 mg PO BID 03/28/23 03/28/23 Trazodone (Unverified Dose) 1 tab PO HS 03/28/23 03/28/23 Vitamin B Complex 1 cap PO DAILY 03/28/23 03/28/23 Previous Rx's Medication Instructions Recorded Ketorolac [Toradol] 10 mg PO Q6HR PRN #15 tab 04/02/24 methocarbamoL [Robaxin-750] 1,500 mg PO TID PRN #30 tab 04/02/24 Allergies Allergy/AdvReac Type Severity Reaction Status Date / Time No Known Allergies Allergy Verified 04/02/24 13:38 Review of Systems ROS Statement: Those systems with pertinent positive or pertinent negative responses have been documented in the HPI. ROS Other: All systems not noted in ROS Statement are negative. Past Medical History Past Medical History: Seizure Disorder Additional Past Medical History / Comment(s): meningitis, herniated discs. History of Any Multi-Drug Resistant Organisms: None Reported Past Surgical History: Section, Ear Surgery Past Anesthesia/Blood Transfusion Reactions: No Reported Reaction Past Psychological History: Anxiety, Bipolar, Depression, Panic Disorder Smoking Status: Former smoker Past Alcohol Use History: Occasional Past Drug Use History: None Reported General Exam - General Exam Comments Initial Comments: Visual Physical Exam Vital signs reviewed General: Well-appearing, nontoxic, no acute distress. Head: Normocephalic, atraumatic Eyes: PERRLA, EOMI ENT: Airway patent Chest: Nonlabored breathing Skin: No visual rash, normal skin tone Neuro: Alert and oriented 3 Musculoskeletal: No gross abnormalities Limitations: no limitations General appearance: alert, in no apparent distress Head exam: Present: atraumatic, normocephalic, normal inspection Respiratory exam: Present: normal lung sounds bilaterally. Absent: respiratory distress, wheezes, rales, rhonchi, stridor Cardiovascular Exam: Present: regular rate, normal rhythm, normal heart sounds. Absent: systolic murmur, diastolic murmur, rubs, gallop, clicks Extremities exam: Present: other (Tenderness and mild swelling to the distal aspect of the left tib-fib. 2+ DP and PT pulses.) Neurological exam: Present: alert, oriented X3, CN II-XII intact Psychiatric exam: Present: normal affect, normal mood Skin exam: Present: warm, dry, intact, normal color. Absent: rash Course Vital Signs 04/02/24 04/02/24 04/02/24 13:36 15:38 16:00 Temperature 98.4 F Pulse Rate 110 H 64 Respiratory 20 20 18 Rate Blood Pressure 168/85 118/71 O2 Sat by Pulse 99 98 Oximetry 04/02/24 17:29 Temperature Pulse Rate 72 Respiratory 18 Rate Blood Pressure 132/64 O2 Sat by Pulse 99 Oximetry Medical Decision Making - Medical Decision Making This is a 38 year old female who presents to the emergency department for left leg pain after a fall. Was pt. sent in by a medical professional or institution? @ -No Did you speak to anyone other than the patient for history? @ -No Did you review nursing and triage notes? @ -Yes, and I agree, it is accurate with regards to the patient's symptoms. Were old charts reviewed? @ -No Differential Diagnosis? @ -Differential Musculoskeletal: Muscular strain, contusion, ligament sprain, fracture, arthritis, septic arthritis, bursitis, cellulitis, muscle spasm, nerve compression, DVT, arterial occlusion, herpes zoster, electrolyte abnormality, tumor.... This is not meant to be in all inclusive list EKG interpreted by me (3pts min.)? @ -Not obtained X-rays interpreted by me (1pt min.)? @ -X-ray of the left tib/fib obtained. My interpretation identifies no acute fractures. CT interpreted by me (1pt min.)? @ -Not obtained U/S interpreted by me (1pt. min.)? @ -Not obtained What testing was considered but not performed? (CT, X-rays, U/S, labs)? Why? @ -None What meds were considered but not given? Why? @ -None Did you discuss the management of the patient with other professionals? @ -No Did you reconcile home meds? @ -No Was smoking cessation discussed for >3mins.? @ -No Was critical care preformed (if so, how long)? @ -No Were there social determinants of health that impacted care today? How? (Homelessness, low income, unemployed, alcoholism, drug addiction, transportation, low edu. Level, literacy, decrease access to med. care, detention, rehab)? @ -No Was there de-escalation of care discussed even if they declined? (Discuss DNR or withdrawal of care, Hospice)? @ -No What co-morbidities impacted this encounter? (DM, HTN, Smoking, COPD, CAD, Cancer, CVA, Hep., AIDS, mental health diagnosis, sleep apnea, morbid obesity)? @ -Morbid obesity Was patient admitted / discharged? @ -Discharged. X-ray of the left tib-fib obtained revealing no acute process. Pain medication administered in the emergency department and she was given a Velcro stirrup splint. Prescription for Toradol and Robaxin provided with dosing instructions reviewed. We also discussed ice and elevation. Patient discharged home in stable condition. Undiagnosed new problem with uncertain prognosis? @ -None Drug Therapy requiring intensive monitoring for toxicity (Heparin, Nitro, Insulin, Cardizem)? @ -None Were any procedures done? @ -None Diagnosis/symptom? @ -Fall, left ankle sprain Acute, or Chronic, or Acute on Chronic? @ -Acute Uncomplicated (without systemic symptoms) or Complicated (systemic symptoms)? @ -Uncomplicated Side effects of treatment? @ -None Exacerbation, Progression, or Severe Exacerbation] @ -Not applicable Poses a threat to life or bodily function? @ -This may limit her ability to ambulate for the mean time. Return precautions reviewed in depth, the patient is instructed to return to the emergency department with any new, worsening, or concerning symptoms. Patient verbalized understanding. This case was discussed in detail with the attending ED physician, Dr. Nixon. Presentation, findings, and treatment plan discussed in detail as well. - Radiology Data Radiology results: report reviewed, image reviewed Disposition Clinical Impression: Left ankle sprain Disposition: HOME SELF-CARE Instructions (If sedation given, give patient instructions): Ankle Sprain (ED) Additional Instructions: Return to the emergency department with any new, worsening, or concerning symptoms. Take the Toradol with Tylenol as needed for pain relief. If you choose to take the Toradol, do not take any other anti-inflammatories such as ibuprofen, take one or the other. You can take the Robaxin as 1-2 tablets up to 3-4 times daily. Be aware that this may make you drowsy. You can apply ice for 15 to 20 minutes every 2-3 hours and keep the leg elevated. Follow up with your primary care provider in 1-2 days. Prescriptions: methocarbamoL [Robaxin-750] 1,500 mg PO TID PRN #30 tab PRN Reason: Pain Ketorolac [Toradol] 10 mg PO Q6HR PRN #15 tab PRN Reason: Pain Is patient prescribed a controlled substance at d/c from ED?: No Referrals: Amor Wilcox MD [Primary Care Provider] - 1-2 days Time of Disposition: 16:02
[2024-04-02 14:02] VITALS: TEMP 98.4
--- NOTE | 2024-04-02 15:12 | XR ---
EXAMINATION TYPE: XR tibia fibula LT DATE OF EXAM: 04/02/2024 2:27 PM CLINICAL INDICATION:Female, 38 years old with history of Injury; H COMPARISON: None TECHNIQUE: XR tibia fibula LT; tibia/fibula was examined in AP and lateral projections. FINDINGS: No evidence of any acute osseous pathology, joint dislocation, or soft tissue swelling is n oted. A fabella is present. There is severe degeneration changes of the patellofemoral joint. IMPRESSION: 1. No evidence of acute fracture. 2. 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 3. Atherosclerosis of the arterial vasculature.
[2024-04-02] MEDS: MORPHINE SULFATE 4 MG/ML SYRINGE IVP STA (15:43)
[2024-04-02] MEDS: KETOROLAC 15 MG/ML 1 ML VIAL IVP STA (15:44)
[2024-04-02] MEDS: ONDANSETRON 4 MG/2 ML VIAL IVP STA (15:54)
[2024-04-02] MEDS ORDERED: ACET/COD 300 MG/30 MG STARTER PACK 6 TAB BTL PO STA (15:56)
[2024-04-02 16:45] VITALS: RESP 18
[2024-04-02 17:35] VITALS: BP 132/64; PULSE 72
== END 2024-04-02 17:31 | disposition home or self-care (01) ==
LOC: EC 13:04
DX: S93.402A Sprain of unspecified ligament of left ankle, initial encounter (principal); Z87.891 Personal history of nicotine dependence; W18.40XA Slipping, tripping and stumbling without falling, unspecified, initial encounter; Y93.01 Activity, walking, marching and hiking
CPT/HCPCS: 73590; 99283; 96374; 96375 ×2; J2270; J2405; J1885

== ENCOUNTER → 2024-04-14 | Outpatient (CLI) | payer OTHER ==
--- NOTE | 2024-04-14 14:51 | US ---
EXAMINATION TYPE: US arterial LE multi level DATE OF EXAM: 04/14/2024 2:19 PM CLINICAL INDICATION: Female, 38 years old with history of R60.0 EDEMA N83.209 OVARIAN CYST; tingling in feet History of: Smoker: previous Hypertension: no Diabetic: no Hyperlipidemia: no TIA/CVA: no Previous Vascular Surgery: no CAD: no CT: no Vascular Ulcers: no Claudication: no Gangrene: no Doppler Waveforms: Right: Multiphasic Left: Biphasic Ankle-Brachial Indices: Right: 1.06 Left: 1.17 (Vessel hardening > 1.4; Normal 0.9 - 1.4, Moderate 0.7 - 0.9, Severe 0.5-0.7) Toe Brachial Indices: Right: 0.92 Left: 1.09 IMPRESSION: Normal bilateral ankle-brachial indices.
--- NOTE | 2024-04-14 14:52 | US ---
EXAMINATION TYPE: US venous doppler duplex LE DATE OF EXAM: 04/14/2024 1:55 PM COMPARISON: NONE CLINICAL INDICATION: Female, 38 years old with history of R60.0 EDEMA N83.209 OVARIAN CYST; edema SIDE PERFORMED: Bilateral TECHNIQUE: The lower extremity deep venous system is examined utilizing real time linear array sonog ysabel with graded compression, doppler sonography and color-flow sonography. VESSELS IMAGED: Common Femoral Vein Deep Femoral Vein Greater Saphenous Vein * Femoral Vein Popliteal Vein Small Saphenous Vein * Proximal Calf Veins (* superficial vessels) Right Leg: Negative for DVT Left Leg: Negative for DVT IMPRESSION: Grayscale, color doppler, spectral doppler imaging performed of the deep veins of the lo wer extremities. There is normal flow, compressibility, vascular waveforms.
--- NOTE | 2024-04-14 16:42 | US ---
EXAMINATION TYPE: US transvaginal DATE OF EXAM: 04/14/2024 COMPARISON: NONE CLINICAL INDICATION: Female, 38 years old with history of R60.0 EDEMA N83.209 OVARIAN CYST; pain HX o f cysts. TECHNIQUE: Transvaginal (TV). EXAM MEASUREMENTS: Uterus: 10.3 x 5.4 x 4.8 cm Endometrial Stripe: 1.4 cm Right Ovary: 3.0 x 2.4 x 2.0 cm The left ovary is not visualized due to bowel gas. 1. Uterus: Anteverted wnl 2. Endometrium: Upper limits. 3. Right Ovary: wnl 4. Left Ovary: Obscured by overlying bowel gas 5. Bilateral Adnexa: wnl 6. Posterior cul-de-sac: wnl IMPRESSION: 1. No evidence for acute process. 2. Endometrium within normal limits for thickness. 3. No right ovarian cysts visualized. The left ovary is not visualized.
== END | disposition home or self-care (01) ==
LOC: RADUSWWP 13:26
PROVIDERS: ATTEND Family Medicine
DX: R60.0 Localized edema (principal)
CPT/HCPCS: 76830; 93923; 93970

== ENCOUNTER 2024-04-26 18:26 | Emergency (ER) | payer OTHER ==
[2024-04-26] MEDS: SODIUM CHLORIDE 0.9% 1,000 ML IV ONE ×2 (19:06→23:18)
--- NOTE | 2024-04-26 19:09 | ED ---
General Adult HPI - General Source: patient Mode of arrival: wheelchair <Maik Tineo - Last Filed: 04/26/24 23:38> <Napoleon Be - Last Filed: 04/27/24 03:18> - General Chief complaint: Nausea/Vomiting/Diarrhea Stated complaint: SOB/Heat Time Seen by Provider: 04/26/24 18:46 - History of Present Illness Initial comments: 38-year-old female presenting with chief complaint of swelling to the extremities and shortness of breath. Patient is currently living in a homeless assisted with her daughter. She states that after doing their chores today she was becoming increasingly short of breath. States that there is no air conditioning and she had to go up and down the stairs several times which she is not used to. She also states that she has been having swelling to the extremities. This has been an ongoing issue she is following with her PCP for. Seems to be worse today. This is equal bilaterally. She is having no chest pain. She admits to nausea, no vomiting. No dizziness or weakness. (Maik Tineo) - Related Data Home Medications Medication Instructions Recorded Confirmed Acetaminophen Tab [Tylenol Tab] 1,000 mg PO Q6HR PRN 03/28/23 04/26/24 Cetirizine HCl 10 mg PO DAILY 03/28/23 04/26/24 Fluticasone Nasal [place] [Flonase 1 spr EA NOSTRIL DAILY 03/28/23 04/26/24 Nasal [place]] Ibuprofen [Motrin] 800 mg PO TID PRN 03/28/23 04/26/24 Sertraline [Zoloft] 50 mg PO DAILY 03/28/23 04/26/24 Cyclobenzaprine [Flexeril] 10 mg PO TID PRN 04/26/24 04/26/24 traZODone HCL [Desyrel] 100 mg PO HS 04/26/24 04/26/24 Previous Rx's Medication Instructions Recorded Amoxic-Pot Clav 875-125Mg 1 tab PO Q12HR 7 Days #14 tab 04/26/24 [Augmentin 875-125] Allergies Allergy/AdvReac Type Severity Reaction Status Date / Time No Known Allergies Allergy Verified 04/26/24 18:44 Review of Systems ROS Other: All systems not noted in ROS Statement are negative. <Maik Tineo - Last Filed: 04/26/24 23:38> ROS Other: All systems not noted in ROS Statement are negative. <Napoleon Be - Last Filed: 04/27/24 03:18> ROS Statement: Those systems with pertinent positive or pertinent negative responses have been documented in the HPI. Past Medical History Past Medical History: Seizure Disorder Additional Past Medical History / Comment(s): meningitis, herniated discs. History of Any Multi-Drug Resistant Organisms: None Reported Past Surgical History: Section, Ear Surgery Past Anesthesia/Blood Transfusion Reactions: No Reported Reaction Past Psychological History: Anxiety, Bipolar, Depression, Panic Disorder Smoking Status: Former smoker Past Alcohol Use History: Occasional Past Drug Use History: None Reported <Maik Tineo - Last Filed: 04/26/24 23:38> General Exam Limitations: no limitations General appearance: alert, in no apparent distress Head exam: Present: atraumatic, normocephalic Eye exam: Present: normal appearance, EOMI ENT exam: Present: other (Patient has honey colored crusting to the top lip with some surrounding redness) Neck exam: Present: normal inspection, lymphadenopathy (There is what appears to be a swollen lymph node in the submandibular region, no erythema or induration. No dental pain.). Absent: meningismus Respiratory exam: Present: normal lung sounds bilaterally. Absent: respiratory distress, wheezes, rales, rhonchi, stridor Cardiovascular Exam: Present: normal rhythm, tachycardia, normal heart sounds. Absent: systolic murmur, diastolic murmur, rubs, gallop, clicks Extremities exam: Present: pedal edema Neurological exam: Present: alert, oriented X3 Psychiatric exam: Present: normal affect, normal mood Skin exam: Present: warm, normal color <Maik Tineo - Last Filed: 04/26/24 23:38> Course Vital Signs 04/26/24 04/26/24 04/26/24 18:37 20:18 23:10 Temperature 99.4 F 99.0 F Pulse Rate 118 H 109 H 114 H Respiratory 20 20 18 Rate Blood Pressure 132/91 146/80 131/87 O2 Sat by Pulse 95 95 96 Oximetry 04/27/24 00:55 Temperature Pulse Rate 101 H Respiratory 18 Rate Blood Pressure 153/91 O2 Sat by Pulse 96 Oximetry EKG Findings - EKG Comments: EKG Findings:: Sinus tachycardia. Ventricular rate 109. NC interval 119. QRS 102. QT 327. QTc 391. Left axis deviation. Incomplete right bundle branch block. <Maik Tineo - Last Filed: 04/26/24 23:38> Medical Decision Making - Lab Data Result diagrams: 04/26/24 19:08 04/26/24 19:08 <Maik Tineo - Last Filed: 04/26/24 23:38> - Lab Data Result diagrams: 04/26/24 19:08 04/26/24 19:08 <Napoleon Be - Last Filed: 04/27/24 03:18> - Medical Decision Making Was pt. sent in by a medical professional or institution (, PA, MINERAL TECHNOLOGIST, urgent care, hospital, or correction...) When possible be specific @ -[No] Did you speak to anyone other than the patient for history (EMS, parent, family, police, friend...)? What history was obtained from this source @ -[No] Did you review nursing and triage notes (agree or disagree)? Why? @ -[I reviewed and agree with nursing and triage notes] Were old charts reviewed (outside hosp., previous admission, EMS record, old EKG, old radiological studies, urgent care reports/EKG's, correction records)? Report findings @ -[No old charts were reviewed] Differential Diagnosis (chest pain, altered mental status, abdominal pain women, abdominal pain men, vaginal bleeding, weakness, fever, dyspnea, syncope, headache, dizziness, GI bleed, back pain, seizure, CVA, palpatations, mental health, musculoskeletal)? @ -MDM Differential Dyspnea: Coronary syndrome, arrhythmia, tamponade, asthma, COPD, pulmonary embolism, pneumonia, pneumothorax, pulmonary effusion, anaphylaxis, diabetic ketoacidosis, flailed chest, pulmonary contusion, diaphragmatic rupture, anemia, neuromuscular this is not meant to be an all-inclusive list. EKG interpreted by me (3pts min.). @ -[As above] X-rays interpreted by me (1pt min.). @ -Chest x-ray shows no acute cardiopulmonary process CT interpreted by me (1pt min.). @ -[None done] U/S interpreted by me (1pt. min.). @ -[None done] What testing was considered but not performed or refused? (CT, X-rays, U/S, labs)? Why? @ -[None] What meds were considered but not given or refused? Why? @ -[None] Did you discuss the management of the patient with other professionals (professionals i.e. , PA, MINERAL TECHNOLOGIST, lab, RT, psych nurse, social welfare administrator, cheese maker, te acher, juvenile probation officer, comp field case manager)? Give summary @ -[No] Was smoking cessation discussed for >3mins.? @ -[No] Was critical care preformed (if so, how long)? @ -[No] Were there social determinants of health that impacted care today? How? (Homelessness, low income, unemployed, alcoholism, drug addiction, transportation, low edu. Level, literacy, decrease access to med. care, mcc, rehab)? @ -Homelessness Was there de-escalation of care discussed even if they declined (Discuss DNR or withdrawal of care, Hospice)? DNR status @ -[No] What co-morbidities impacted this encounter? (DM, HTN, Smoking, COPD, CAD, Cancer, CVA, ARF, Chemo, Hep., AIDS, mental health diagnosis, sleep apnea, morbid obesity)? @ -[None] Was patient admitted / discharged? Hospital course, mention meds given and route , prescriptions, significant lab abnormalities, going to OR and other pertinent info. @ -38-year-old female presenting with chief complaint of shortness of breath and nausea. She was doing chores at the assisted she lives at today where they do not have air conditioning and a heat wave was present today. Patient states that she just generally did not feel well. Patient is tachycardic upon prese ntation, she is given IV fluids. Patient does have a lesion consistent with impetigo present to the lip, provided with mupirocin ointment. Negative D-dimer and troponin. Negative hCG. Mild transaminitis. Glucose 227. Chest x-ray shows no acute process. EKG shows sinus tachycardia. On reassessment patient reports some improvement after fluids. Patient is still tachycardic. CT is ordered. Results are pending. Signed out to Dr. Be Undiagnosed new problem with uncertain prognosis? @ -[No] Drug Therapy requiring intensive monitoring for toxicity (Heparin, Nitro, Insulin, Cardizem)? @ -[No] Were any procedures done? @ -[No] Diagnosis/symptom? @ -[default] Acute, or Chronic, or Acute on Chronic? @ -[default] Uncomplicated (without systemic symptoms) or Complicated (systemic symptoms)? @ -[default] Side effects of treatment? @ -[No] Exacerbation, Progression, or Severe Exacerbation? @ -[No] Poses a threat to life or bodily function? How? (Chest pain, [place], [place], pneumonia, PE, COPD, DKA, ARF, appy, cholecystitis, CVA, Diverticulitis, Homicidal, Suicidal, threat to staff... and all critical care pts) @ -[No] (Maik Tineo) Patient signed out to me pending results of CT imaging. Suspected diagnosis is heat exhaustion with impetigo. CT PE was obtained due to borderline D-dimer as well as shortness of breath and continued tachycardia. She was given an additional IV fluids. CT PE as interpreted by myself returned negative for any obvious acute cardiopulmonary process or PE. On reevaluation patient is resting comfortably. Heart rate is improved. He has no significant complaints. We discussed her workup. She will be discharged home at this time. She was in agreement this plan. I will provide the patient with a prescription for Augmentin. I instructed the patient to follow up with their PCP in the next 1-3 days.. I explained that the patient should return to the emergency department if they experience any wor sening symptoms. Strict return precautions were discussed with the patient. The patient expressed understanding of these instructions. I answered all questions that the patient had. The patient was discharged home in good condition with their prescriptions and follow up information. Diagnosis/symptom? @ -Heat exhaustion, impetigo Acute, or Chronic, or Acute on Chronic? @ -Acute Uncomplicated (without systemic symptoms) or Complicated (systemic symptoms)? @ -Complicated Side effects of treatment? @ -None Exacerbation, Progression, or Severe Exacerbation] @ -No Poses a threat to life or bodily function? @ -Unlikely (Napoleon Be) - Lab Data Lab Results 04/26/24 04/26/24 04/26/24 Range/Units 19:08 19:08 19:08 WBC 8.1 (3.8-10.6) k/uL RBC 4.15 (3.80-5.40) m/uL Hgb 10.8 L (11.4-16.0) gm/dL Hct 35.0 (34.0-46.0) % MCV 84.4 (80.0-100.0) fL MCH 25.9 (25.0-35.0) pg MCHC 30.7 L (31.0-37.0) g/dL RDW 15.9 H (11.5-15.5) % Plt Count 234 (150-450) k/uL MPV 9.9 Neutrophils % 67 % Lymphocytes % 24 % Monocytes % 6 % Eosinophils % 2 % Basophils % 0 % Neutrophils # 5.4 (1.3-7.7) k/uL Lymphocytes # 1.9 (1.0-4.8) k/uL Monocytes # 0.4 (0-1.0) k/uL Eosinophils # 0.1 (0-0.7) k/uL Basophils # 0.0 (0-0.2) k/uL Hypochromasia Slight D-Dimer (<0.60) mg/L FEU Sodium 137 (137-145) mmol/L Potassium 4.5 (3.5-5.1) mmol/L Chloride 102 (98-107) mmol/L Carbon Dioxide 26 (22-30) mmol/L Anion Gap 9 mmol/L BUN 13 (7-17) mg/dL Creatinine 0.48 L (0.52-1.04) mg/dL Est GFR (CKD-EPI)AfAm >90 (>60 ml/min/1.73 sqM) Est GFR (CKD-EPI)NonAf >90 (>60 ml/min/1.73 sqM) Glucose 227 H (74-99) mg/dL Calcium 9.0 (8.4-10.2) mg/dL Total Bilirubin 0.6 (0.2-1.3) mg/dL AST 38 H (14-36) U/L ALT 40 H (4-34) U/L Alkaline Phosphatase 120 (38-126) U/L Troponin I (0.000-0.034) ng/mL Total Protein 7.3 (6.3-8.2) g/dL Albumin 4.0 (3.5-5.0) g/dL Urine Color Yellow Urine Appearance Clear (Clear) Urine pH 5.5 (5.0-8.0) Ur Specific [place] 1.033 (1.001-1.035) Urine Protein Trace H (Negative) Urine Glucose (UA) Trace H (Negative) Urine Ketones Negative (Negative) Urine Blood Negative (Negative) Urine Nitrite Negative (Negative) Urine Bilirubin Negative (Negative) Urine Urobilinogen <2.0 (<2.0) mg/dL Ur Leukocyte Esterase Negative (Negative) Urine HCG, Qual (Not Detectd) 04/26/24 04/26/24 04/26/24 Range/Units 19:08 20:24 21:19 WBC (3.8-10.6) k/uL RBC (3.80-5.40) m/uL Hgb (11.4-16.0) gm/dL Hct (34.0-46.0) % MCV (80.0-100.0) fL MCH (25.0-35.0) pg MCHC (31.0-37.0) g/dL RDW (11.5-15.5) % Plt Count (150-450) k/uL MPV Neutrophils % % Lymphocytes % % Monocytes % % Eosinophils % % Basophils % % Neutrophils # (1.3-7.7) k/uL Lymphocytes # (1.0-4.8) k/uL Monocytes # (0-1.0) k/uL Eosinophils # (0-0.7) k/uL Basophils # (0-0.2) k/uL Hypochromasia D-Dimer 0.58 (<0.60) mg/L FEU Sodium (137-145) mmol/L Potassium (3.5-5.1) mmol/L Chloride (98-107) mmol/L Carbon Dioxide (22-30) mmol/L Anion Gap mmol/L BUN (7-17) mg/dL Creatinine (0.52-1.04) mg/dL Est GFR (CKD-EPI)AfAm (>60 ml/min/1.73 sqM) Est GFR (CKD-EPI)NonAf (>60 ml/min/1.73 sqM) Glucose (74-99) mg/dL Calcium (8.4-10.2) mg/dL Total Bilirubin (0.2-1.3) mg/dL AST (14-36) U/L ALT (4-34) U/L Alkaline Phosphatase (38-126) U/L Troponin I <0.012 (0.000-0.034) ng/mL Total Protein (6.3-8.2) g/dL Albumin (3.5-5.0) g/dL Urine Color Urine Appearance (Clear) Urine pH (5.0-8.0) Ur Specific [place] (1.001-1.035) Urine Protein (Negative) Urine Glucose (UA) (Negative) Urine Ketones (Negative) Urine Blood (Negative) Urine Nitrite (Negative) Urine Bilirubin (Negative) Urine Urobilinogen (<2.0) mg/dL Ur Leukocyte Esterase (Negative) Urine HCG, Qual Not Detected (Not Detectd) Disposition Is patient prescribed a controlled substance at d/c from ED?: No <Maik Tineo - Last Filed: 04/26/24 23:38> Is patient prescribed a controlled substance at d/c from ED?: No Time of Disposition: 03:15 <Napoleon Be - Last Filed: 04/27/24 03:18> Clinical Impression: Heat exhaustion, Impetigo Disposition: HOME SELF-CARE Condition: Good Instructions (If sedation given, give patient instructions): Impetigo (ED), He at Exhaustion (ED) Additional Instructions: Follow-up with PCP. Report back to ER with any new or worsening symptoms. Apply the topical antibiotic ointment 3 times daily for 5 days Prescriptions: Amoxic-Pot Clav 875-125Mg [Augmentin 875-125] 1 tab PO Q12HR 7 Days #14 tab Referrals: Amor Wilcox MD [Primary Care Provider] - 1-2 days
[2024-04-26 19:24] LABS: Basophils % (A) 0 %; Eosinophils # (A) 0.1 k/uL (0-0.7); Eosinophils % (A) 2 %; HGB 10.8 gm/dL (11.4-16.0); Hypochromasia Slight; Lymphocytes # (A) 1.9 k/uL (1.0-4.8); Lymphocytes % (A) 24 %; MCH 25.9 pg (25.0-35.0); MCHC 30.7 g/dL (31.0-37.0); MCV 84.4 fL (80.0-100.0); Mean Platelet Volume 9.9; Monocytes # (A) 0.4 k/uL (0-1.0); Monocytes % (A) 6 %; Neutrophils # (A) 5.4 k/uL (1.3-7.7); Neutrophils % (A) 67 %; Platelet Count 234 k/uL (150-450); RBC 4.15 m/uL (3.80-5.40); RDW 15.9 % (11.5-15.5); WBC 8.1 k/uL (3.8-10.6)
[2024-04-26 19:25] LABS: Appearance,Urine Clear (Clear); Bilirubin,Urine Negative (Negative); Blood,Urine Negative (Negative); Color,Urine Yellow; Glucose,Urine (UA) Trace (Negative); Ketones,Urine Negative (Negative); Leukocyte Esterase,Urine Negative (Negative); Nitrite,Urine Negative (Negative); PH, Urine 5.5 (5.0-8.0); Protein,Urine Trace (Negative); Specific Gravity,Urine 1.033 (1.001-1.035); Urobilinogen,Urine <2.0 mg/dL (<2.0)
[2024-04-26 19:39] LABS: ALT 40 U/L (4-34); African American GFR (CKD) >90 (>60 ml/min/1.73 sqM); Anion Gap 9 mmol/L; Blood Urea Nitrogen 13 mg/dL (7-17); Carbon Dioxide 26 mmol/L (22-30); Chloride 102 mmol/L (98-107); Glucose 227 mg/dL (74-99); Non-African American GFR(CKD) >90 (>60 ml/min/1.73 sqM); Sodium 137 mmol/L (137-145); Total Bilirubin 0.6 mg/dL (0.2-1.3); Total Protein 7.3 g/dL (6.3-8.2)
[2024-04-26 19:41] LABS: AST 38 U/L (14-36); Alkaline Phosphatase 120 U/L (38-126); Potassium 4.5 mmol/L (3.5-5.1)
--- NOTE | 2024-04-26 20:08 | XR ---
EXAMINATION TYPE: XR chest 2V DATE OF EXAM: 04/26/2024 7:39 PM CLINICAL INDICATION:Female, 38 years old with history of SOB; COMPARISON: Chest radiographs from 03/28/2023 TECHNIQUE: XR chest 2V Frontal and lateral views of the chest. FINDINGS: Lungs/Pleura: There is no evidence of pleural effusion, focal consolidation, or pneumothorax. Pulmonary vascularity: Unremarkable. Heart/mediastinum: Cardiomediastinal silhouette is unremarkable. Musculoskeletal: No acute osseous pathology. IMPRESSION: No acute cardiopulmonary disease/process.
[2024-04-26 20:19] VITALS: TEMP 99
[2024-04-26] MEDS: MUPIROCIN 2% OINT 22 GM TUBE TOPICAL STA (20:20)
[2024-04-26 23:11] VITALS: RESP 18
--- NOTE | 2024-04-27 02:42 | CT ---
EXAM: CT Angiography Chest With Intravenous Contrast CLINICAL HISTORY: ITS.REASON CT Reason: SOB TECHNIQUE: Axial computed tomographic angiography images of the chest with intravenous contrast. CTDI is 116.5 mGy and DLP is 1585.4 mGy-cm. This CT exam was performed using one or more of the following dose reduction techniques: automated exposure control, adjustment of the mA and/or kV according to patient size, and/or use of iterative reconstruction technique. MIP reconstructed images were created and reviewed. COMPARISON: No relevant prior studies available. FINDINGS: Pulmonary arteries: No large or central pulmonary embolism. Evaluation is limited due to suboptimal contrast bolus timing. The need for repeat exam should be determined clinically. Aorta: No acute findings. No thoracic aortic aneurysm. Lungs: Unremarkable. No mass. No consolidation. Pleural space: Unremarkable. No significant effusion. No pneumothorax. Heart: Unremarkable. No cardiomegaly. No significant pericardial effusion. No evidence of RV dysfunction. Bones/joints: No acute fracture. No dislocation. Soft tissues: Unremarkable. Lymph nodes: Unremarkable. No enlarged lymph nodes. Liver: Hepatic steatosis. IMPRESSION: No large or central pulmonary embolism. Evaluation is limited due to suboptimal contrast bolus timing. The need for repeat exam should be determined clinically.
[2024-04-27 03:22] VITALS: BP 143/91; PULSE 107
== END 2024-04-27 03:20 | disposition home or self-care (01) ==
LOC: EC 18:26
DX: T67.5XXA Heat exhaustion, unspecified, initial encounter (principal); L01.00 Impetigo, unspecified; Z87.891 Personal history of nicotine dependence
CPT/HCPCS: 36415; 93005; 85379; 80053; 84484; 85025; 81003; 81025; 71046; 71275; 99284; 96360; 96361; Q9967

== ENCOUNTER → 2024-05-14 | Outpatient (CLI) | payer OTHER ==
--- NOTE | 2024-05-18 19:50 | CT ---
EXAMINATION TYPE: CT abdomen pelvis w con DATE OF EXAM: 05/17/2024 COMPARISON: 01/17/2021 INDICATION: LUQ pain DLP: 5177.7 mGycm, Automated exposure control for dose reduction was used. CONTRAST: 100 mL of Isovue 300. Study performed with Oral Contrast TECHNIQUE: Axial images were obtained from above the diaphragm to the pubic rami in the axial plane a t 5 mm thick sections. Reconstructed images are reviewed on the computer in the coronal plane. Exam limited due to body habitus. FINDINGS: Limited CT sections are obtained the lung bases. The lung bases are clear. CT ABDOMEN: Liver: There is moderate fatty infiltration of liver. Some spurring may be along the anterior right l obe margin. Spleen: Normal Pancreas: Normal Adrenal glands: The adrenal glands are normal. Gallbladder: Normal Kidneys: No masses are evident. No hydronephrosis is present. No cysts are present. Delayed images were obtained through the kidneys, which remain unremarkable. Aorta: Normal Inferior vena cava: Normal. CT PELVIS: Loops of bowel within the abdomen and pelvis are normal. There are loops of bowel which are incom pletely distended or lack oral contrast limiting their evaluation. Appendix: Not identified. No inflammatory changes or dilated tubular structures evident. Urinary bladder: Limited but unremarkable Genitourinary structures: Uterus appears normal Osseous structures: No suspicious lytic or sclerotic lesions. IMPRESSION: 1. Mild fatty infiltration of liver.
== END | disposition home or self-care (01) ==
LOC: RADCTMAIN 12:10
PROVIDERS: ATTEND Family Medicine
DX: K76.0 Fatty (change of) liver, not elsewhere classified (principal); R60.9 Edema, unspecified
CPT/HCPCS: 74177; Q9967

== ENCOUNTER 2024-07-03 19:34 | Emergency (ER) | payer OTHER ==
[2024-07-03] MEDS ORDERED: AMOXIC-POT CLAV 875-125MG 1 EACH TAB ONE (23:13)
--- NOTE | 2024-07-28 10:10 | XR ---
Report Patient: Sunitha Rico G Ordering Physician: Unknown, Unknown ID: [id number] Phone, Pager: Phone: N/A Pager: N/A : [phone] Age/Gender: 38Y, F Primary Location: N/A Procedure: CXR2V Study Date: 07/03/2024 9:24:02 PM EXAMINATION TYPE: XR chest 2V DATE OF EXAM: 07/03/2024 COMPARISON: 06/12/2024 HISTORY: 38-year-old female with productive cough TECHNIQUE: PA and lateral views FINDINGS: Heart normal size. Aorta and pulmonary vasculature are within normal limits. Interstitial prominence. Some possible developing patchy opacity in the right lower lung. No pleural effusion. IMPRESSION: Possible early developing infiltrate/pneumonia at the medial right lower lung.
== END 2024-07-03 23:13 | disposition home or self-care (01) ==
LOC: EC 19:34
CPT/HCPCS: 71046; 93005; 99285

== ENCOUNTER 2025-03-02 09:22 | Emergency (ER) | payer OTHER ==
--- NOTE | 2025-03-02 10:29 | ED ---
ENT HPI - General Chief complaint: ENT Stated complaint: Sore Throat Time Seen by Provider: 03/02/25 09:28 Source: patient, RN notes reviewed Mode of arrival: ambulatory Limitations: no limitations - History of Present Illness Initial comments: 39-year-old female presents emergency department chief complaint of right-sided tonsil, neck swelling. Patient states prior to that she was having some ear pain like she was having drainage. Patient states now she has developed fever, difficulty swallowing and painful swallowing. Patient denies any shortness of breath she does report fever, chills denies abdominal complaints no chest pain. - Related Data Home Medications Medication Instructions Recorded Confirmed Acetaminophen Tab [Tylenol Tab] 1,000 mg PO Q6HR PRN 03/28/23 04/26/24 Cetirizine HCl 10 mg PO DAILY 03/28/23 04/26/24 Fluticasone Nasal [place] [Flonase 1 spr EA NOSTRIL DAILY 03/28/23 04/26/24 Nasal [place]] Ibuprofen [Motrin] 800 mg PO TID PRN 03/28/23 04/26/24 Sertraline [Zoloft] 50 mg PO DAILY 03/28/23 04/26/24 Cyclobenzaprine [Flexeril] 10 mg PO TID PRN 04/26/24 04/26/24 traZODone HCL [Desyrel] 100 mg PO HS 04/26/24 04/26/24 Previous Rx's Medication Instructions Recorded Amoxic-Pot Clav 875-125Mg 1 tab PO Q12HR 7 Days #14 tab 04/26/24 [Augmentin 875-125] Ipratropium [place] [Atrovent Hfa] 2 puff INHALATION QID #12.9 gm 06/12/24 Levofloxacin [Levaquin] 750 mg PO DAILY 5 Days #5 tab 06/12/24 Promethazine/Dextromethorphan 5 ml PO Q4-6H PRN #473 ml 06/12/24 [Promethazine-Dm 6.25-15 mg/5Ml] predniSONE 50 mg PO DAILY 5 Days #5 tab 06/12/24 Amoxic-Pot Clav 875-125Mg 1 tab PO Q12HR #20 tab 03/02/25 [Augmentin 875-125] predniSONE 50 mg PO DAILY #5 tab 03/02/25 Allergies Allergy/AdvReac Type Severity Reaction Status Date / Time No Known Allergies Allergy Verified 03/02/25 09:26 Review of Systems ROS Statement: Those systems with pertinent positive or pertinent negative responses have been documented in the HPI. ROS Other: All systems not noted in ROS Statement are negative. Past Medical History Past Medical History: Seizure Disorder Additional Past Medical History / Comment(s): meningitis, herniated discs. History of Any Multi-Drug Resistant Organisms: None Reported Past Surgical History: Section, Ear Surgery Past Anesthesia/Blood Transfusion Reactions: No Reported Reaction Past Psychological History: Anxiety, Bipolar, Depression, Panic Disorder Smoking Status: Former smoker Past Alcohol Use History: Occasional Past Drug Use History: None Reported General Exam Limitations: no limitations General appearance: alert, in no apparent distress Head exam: Present: atraumatic, normocephalic, normal inspection Eye exam: Present: normal appearance, PERRL, EOMI. Absent: scleral icterus, conjunctival injection, periorbital swelling ENT exam: Present: mucous membranes moist, TM's normal bilaterally, normal external ear exam. Absent: normal exam, normal oropharynx (Very large right erythematous abdominal tonsil mild exudates noted) Neck exam: Present: normal inspection, tenderness, full ROM, lymphadenopathy. Absent: meningismus Respiratory exam: Present: normal lung sounds bilaterally. Absent: respiratory distress, wheezes, rales, rhonchi, stridor Cardiovascular Exam: Present: normal rhythm, tachycardia, normal heart sounds. Absent: systolic murmur, diastolic murmur, rubs, gallop, clicks Course Vital Signs 03/02/25 03/02/25 03/02/25 09:23 10:39 12:51 Temperature 99.3 F 98.6 F 98.6 F Pulse Rate 121 H 109 H 98 Respiratory 20 20 22 Rate Blood Pressure 166/92 150/94 150/90 O2 Sat by Pulse 99 98 95 Oximetry Medical Decision Making - Medical Decision Making Was pt. sent in by a medical professional or institution (, PA, CONTRACTS ADVISOR, urgent care, hospital, or [facility]...) When possible be specific @ -No Did you speak to anyone other than the patient for history (EMS, parent, family, police, friend...)? What history was obtained from this source @ -No Did you review nursing and triage notes (agree or disagree)? Why? @ -I reviewed and agree with nursing and triage notes Were old charts reviewed (outside hosp., previous admission, EMS record, old EKG, old radiological studies, urgent care reports/EKG's, [facility] records)? Report findings @ -No old charts were reviewed Differential Diagnosis (chest pain, altered mental status, abdominal pain women, abdominal pain men, vaginal bleeding, weakness, fever, dyspnea, syncope, headache, dizziness, GI bleed, back pain, seizure, CVA, palpatations, mental health, musculoskeletal)? @ -Tonsillitis, strep pharyngitis, tonsillar abscess EKG interpreted by me (3pts min.). @ -None X-rays interpreted by me (1pt min.). @ -None done CT interpreted by me (1pt min.). @ -CT of the soft tissue neck showing incidental evidence of tonsillitis no drainable abscess U/S interpreted by me (1pt. min.). @ -None done What testing was considered but not performed or refused? (CT, X-rays, U/S, labs)? Why? @ -None What meds were considered but not given or refused? Why? @ -None Did you discuss the management of the patient with other professionals (professionals i.e. , PA, CONTRACTS ADVISOR, lab, RT, psych nurse, vp digital marketing social media and crm, linux unix system administrator, teacher, client sales and service officer, case management manager)? Give summary @ -No Was smoking cessation discussed for >3mins.? @ -No Was critical care preformed (if so, how long)? @ -No Were there social determinants of health that impacted care today? How? (H omelessness, low income, unemployed, alcoholism, drug addiction, transportation, low edu. Level, literacy, decrease access to med. care, retirement, rehab)? @ -No Was there de-escalation of care discussed even if they declined (Discuss DNR or withdrawal of care, Hospice)? DNR status @ -No What co-morbidities impacted this encounter? (DM, HTN, Smoking, COPD, CAD, Cancer, CVA, ARF, Chemo, Hep., AIDS, mental health diagnosis, sleep apnea, morbid obesity)? @ -None Was patient admitted / discharged? Hospital course, mention meds given and route, prescriptions, significant lab abnormalities, going to OR and other pertinent info. @ -[Discharged patient has evidence of tonsillitis, strep pharyngitis positive received Decadron, 2 g Rocephin discharged steroids follow-up with ENT we discussed strict return parameters. No drainable abscess at this time. Undiagnosed new problem with uncertain prognosis? @ -No Drug Therapy requiring intensive monitoring for toxicity (Heparin, Nitro, Insulin, Cardizem)? @ -No Were any procedures done? @ -No Diagnosis/symptom? @ -Tonsillitis, strep pharyngitis Acute, or Chronic, or Acute on Chronic? @ -Acute acute Uncomplicated (without systemic symptoms) or Complicated (systemic symptoms)? @ -Uncomplicated Side effects of treatment? @ -No Exacerbation, Progression, or Severe Exacerbation? @ -No Poses a threat to life or bodily function? How? (Chest pain, [place], [place], pneumonia, PE, COPD, DKA, ARF, appy, cholecystitis, CVA, Diverticulitis, Homicidal, Suicidal, threat to staff... and all critical care pts) @ -No - Lab Data Result diagrams: 03/02/25 10:34 03/02/25 10:34 Lab Results 03/02/25 03/02/25 03/02/25 Range/Units 09:49 10:34 10:34 WBC 11.92 H (4.50-10.00) 10*3/uL RBC 4.25 (4.10-5.20) 10*6/uL Hgb 11.4 L (12.0-15.0) g/dL Hct 34.3 L (37.2-46.3) % MCV 80.7 (80.0-97.0) fL MCH 26.8 L (27.0-32.0) pg MCHC 33.2 (32.0-37.0) g/dL Plt Count 250 (140-440) 10*3/uL MPV 11.9 (9.5-12.2) fL Immature Gran % (Auto) 0.5 % Neutrophils % 81.1 % Lymphocytes % 13.3 % Monocytes % 3.5 % Eosinophils % 1.3 % Basophils % 0.3 % Immature Gran # 0.06 H (0.00-0.04) 10*3/uL Neutrophils # 9.68 H (1.80-7.70) 10*3/uL Lymphocytes # 1.58 (0.90-5.00) 10*3/uL Monocytes # 0.42 (0.20-1.00) 10*3/uL Eosinophils # 0.15 (0.04-0.35) 10*3/uL Basophils # 0.03 (0.00-0.10) 10*3/uL Sodium (137-145) mmol/L Potassium (3.5-5.1) mmol/L Chloride (98-107) mmol/L Carbon Dioxide (22-30) mmol/L Anion Gap mmol/L BUN (7-17) mg/dL Creatinine (0.52-1.04) mg/dL Est GFR (CKD-EPI)AfAm (>60 ml/min/1.73 sqM) Est GFR (CKD-EPI)NonAf (>60 ml/min/1.73 sqM) Glucose (74-99) mg/dL Calcium (8.4-10.2) mg/dL Heterophile Antibody Negative (Negative) Group A Strep (PCR) DETECTED A (Not Detectd) 03/02/25 Range/Units 10:34 WBC (4.50-10.00) 10*3/uL RBC (4.10-5.20) 10*6/uL Hgb (12.0-15.0) g/dL Hct (37.2-46.3) % MCV (80.0-97.0) fL MCH (27.0-32.0) pg MCHC (32.0-37.0) g/dL Plt Count (140-440) 10*3/uL MPV (9.5-12.2) fL Immature Gran % (Auto) % Neutrophils % % Lymphocytes % % Monocytes % % Eosinophils % % Basophils % % Immature Gran # (0.00-0.04) 10*3/uL Neutrophils # (1.80-7.70) 10*3/uL Lymphocytes # (0.90-5.00) 10*3/uL Monocytes # (0.20-1.00) 10*3/uL Eosinophils # (0.04-0.35) 10*3/uL Basophils # (0.00-0.10) 10*3/uL Sodium 134 L (137-145) mmol/L Potassium 4.2 (3.5-5.1) mmol/L Chloride 96 L (98-107) mmol/L Carbon Dioxide 28 (22-30) mmol/L Anion Gap 10 mmol/L BUN 9 (7-17) mg/dL Creatinine 0.39 L (0.52-1.04) mg/dL Est GFR (CKD-EPI)AfAm >90 (>60 ml/min/1.73 sqM) Est GFR (CKD-EPI)NonAf >90 (>60 ml/min/1.73 sqM) Glucose 202 H (74-99) mg/dL Calcium 9.1 (8.4-10.2) mg/dL Heterophile Antibody (Negative) Group A Strep (PCR) (Not Detectd) Disposition Clinical Impression: Strep pharyngitis, Tonsillitis Disposition: HOME SELF-CARE Condition: Stable Instructions (If sedation given, give patient instructions): Strep Throat (ED) Additional Instructions: Please return to the Emergency Department if symptoms worsen or any other concerns. Prescriptions: Amoxic-Pot Clav 875-125Mg [Augmentin 875-125] 1 tab PO Q12HR #20 tab predniSONE 50 mg PO DAILY #5 tab Is patient prescribed a controlled substance at d/c from ED?: No Referrals: Amor Wilcox MD [Primary Care Provider] - 1-2 days Javan Smith MD [STAFF PHYSICIAN] - 1-2 days Time of Disposition: 12:32
[2025-03-02] MEDS: SODIUM CHLORIDE 0.9% 1,000 ML IV ONE (10:33)
[2025-03-02 10:40] VITALS: TEMP 98.6
[2025-03-02 10:55] LABS: Basophils # (A) 0.03 10*3/uL (0.00-0.10); Basophils % (A) 0.3 %; Eosinophils # (A) 0.15 10*3/uL (0.04-0.35); Eosinophils % (A) 1.3 %; HCT 34.3 % (37.2-46.3); HGB 11.4 g/dL (12.0-15.0); Lymphocytes # (A) 1.58 10*3/uL (0.90-5.00); Lymphocytes % (A) 13.3 %; MCH 26.8 pg (27.0-32.0); MCHC 33.2 g/dL (32.0-37.0); MCV 80.7 fL (80.0-97.0); Mean Platelet Volume 11.9 fL (9.5-12.2); Monocytes # (A) 0.42 10*3/uL (0.20-1.00); Monocytes % (A) 3.5 %; Neutrophils # (A) 9.68 10*3/uL (1.80-7.70); Neutrophils % (A) 81.1 %; Platelet Count 250 10*3/uL (140-440); RBC 4.25 10*6/uL (4.10-5.20); RDW 14.6 % (11.5-14.5); WBC 11.92 10*3/uL (4.50-10.00)
[2025-03-02] MEDS: KETOROLAC 15 MG/ML 1 ML VIAL IVP STA (11:06)
[2025-03-02] MEDS: DEXAMETHASONE SOD PHOSPHATE 10 MG/ML 1 ML VIAL IVP STA (11:06)
[2025-03-02 11:11] LABS: African American GFR (CKD) >90 (>60 ml/min/1.73 sqM); Anion Gap 10 mmol/L; Blood Urea Nitrogen 9 mg/dL (7-17); Calcium 9.1 mg/dL (8.4-10.2); Carbon Dioxide 28 mmol/L (22-30); Chloride 96 mmol/L (98-107); Glucose 202 mg/dL (74-99); Non-African American GFR(CKD) >90 (>60 ml/min/1.73 sqM); Potassium 4.2 mmol/L (3.5-5.1); Sodium 134 mmol/L (137-145)
--- NOTE | 2025-03-02 11:57 | CT ---
EXAMINATION TYPE: CT soft tissue neck w con CT DLP: 905.7 mGycm, Automated exposure control for dose reduction was used. DATE OF EXAM: 03/02/2025 11:42 AM COMPARISON: CT soft tissue neck 12/14/2022. CLINICAL INDICATION:Female, 39 years old with history of right tonsillar swelling; PHH, right tonsill ar swelling TECHNIQUE: Standard enhanced CT of the neck following intravenous administration of 100 cc of Isovue 300. Axial sections with coronal and sagittal reformats were obtained. FINDINGS: Brain: Visualized portions are grossly unremarkable. Orbits: Unremarkable Sinuses: Mild mucosal thickening in the left sphenoid sinus. Near complete opacification of the right sphenoid sinus. The remaining visualized paranasal sinuses are clear. Suprahyoid Neck: The oral cavity is unremarkable. There is asymmetric enlargement of the right palati ne tonsil with surrounding edema and fat stranding. Streak artifact from the patient's dental amalgam limits evaluation. Overall similar in appearance to prior exam 12/14/2022 The retropharyngeal space ap pears unremarkable. The left palatine tonsil is again enlarged. Enlarged adenoids redemonstrated. Infrahyoid Neck: The larynx, hypopharynx, and supraglottic area are clear and symmetric. Parotid Glands: Unremarkable. Submandibular Glands: Unremarkable. Musculoskeletal: No acute osseous pathology. Degenerative disc disease with disc space narrowing and anterior osteophytosis most pronounced at C6-C7. Lymph nodes: Borderline enlarged bilateral jugular chain lymph nodes with largest on the right measu ring up to 2.0 cm shortest axis and largest on the left measuring up to 1.6 cm short axis. The bilate ral submandibular lymph nodes. Vascular structures: Visualized major arteries are patent without evidence of aneurysm. Retropharynge al course of the bilateral common iliac arteries. Thoracic Inlet/airway: Lung apices are clear. There is significant narrowing of the oropharyngeal air way due to above. Remaining airways clear. Soft tissues/Thyroid: Thyroid and remainder of the soft tissues are unremarkable. Other: none. IMPRESSION: 1. Bilateral palatine tonsillar enlargement with right greater than left. There is surrounding edema and stranding with fluid in the right peritonsillar region. Consistent with tonsillitis. Raises conc april for palatine tonsillar abscess. There is significant airway narrowing in the oropharynx. 2. Enlarged bilateral jugular lymph nodes, likely reactive to #1. Additional prominent submandibular lymph nodes. [facility], , 03/02/2025 11:55 AM
[2025-03-02 12:53] VITALS: BP 150/90; PULSE 98; RESP 22
== END 2025-03-02 12:52 | disposition home or self-care (01) ==
LOC: EC 09:22
DX: J02.0 Streptococcal pharyngitis (principal); Z87.891 Personal history of nicotine dependence
CPT/HCPCS: 36415; 87651; 80048; 85025; 86308; 70491; 99283; 96365; 96375 ×2; 96361; J1100; J0696; J1885; Q9967

== ENCOUNTER 2025-03-17 11:51 | Emergency (ER) | payer OTHER ==
--- NOTE | 2025-03-17 12:37 | ED ---
ENT HPI - General Chief complaint: ENT Stated complaint: R ear pain Time Seen by Provider: 03/17/25 12:35 Source: patient Mode of arrival: ambulatory Limitations: no limitations - History of Present Illness Initial comments: 39-year-old female presented to the ER for evaluation of right ear pain and sore throat. Patient reports for the past 2 months she has been experiencing discomfort to her right ear. She states it feels like her right ear is draining into her throat causing a sore throat. Patient has been on 3 rounds of antibiotics including amoxicillin twice and Augmentin. Patient also has been on prednisone without relief of symptoms. Patient reports over the past days she has noticed extreme worsening pain and swelling to her left tonsil/throat. This is making it extremely painful and difficult for her to swallow and painful for her to breathe. She denies any known fevers or chills. Patient does admit to a history of a peritonsillar abscess. Patient reports she is possibly diabetic. No other complaints. - Related Data Home Medications Medication Instructions Recorded Confirmed Acetaminophen Tab [Tylenol Tab] 1,000 mg PO Q6HR PRN 03/28/23 04/26/24 Cetirizine HCl 10 mg PO DAILY 03/28/23 04/26/24 Sertraline [Zoloft] 50 mg PO DAILY 03/28/23 04/26/24 Cyclobenzaprine [Flexeril] 10 mg PO TID PRN 04/26/24 04/26/24 traZODone HCL [Desyrel] 100 mg PO HS 04/26/24 04/26/24 Albuterol Sulfate [Ventolin HFA] 2 puff INHALATION RT-QID PRN 03/17/25 03/17/25 Ibuprofen [Motrin] 600 mg PO BID PRN 03/17/25 03/17/25 Allergies Allergy/AdvReac Type Severity Reaction Status Date / Time No Known Allergies Allergy Verified 03/17/25 17:05 Review of Systems ROS Statement: Those systems with pertinent positive or pertinent negative responses have been documented in the HPI. ROS Other: All systems not noted in ROS Statement are negative. Past Medical History Past Medical History: Seizure Disorder Additional Past Medical History / Comment(s): meningitis, herniated discs. History of Any Multi-Drug Resistant Organisms: None Reported Past Surgical History: Section, Ear Surgery Past Anesthesia/Blood Transfusion Reactions: No Reported Reaction Past Psychological History: Anxiety, Bipolar, Depression, Panic Disorder Smoking Status: Former smoker Past Alcohol Use History: Occasional Past Drug Use History: None Reported General Exam Limitations: no limitations General appearance: alert, in no apparent distress ENT exam: Present: mucous membranes moist, TM's normal bilaterally (No mastoid tenderness bilaterally), other (Erythema and edema noted to right tonsil causing uvular deviation to left. No exudates) Neck exam: Present: normal inspection, full ROM, lymphadenopathy (right submandibular) Respiratory exam: Present: normal lung sounds bilaterally. Absent: respiratory distress, wheezes, rales, rhonchi, stridor Cardiovascular Exam: Present: normal rhythm, tachycardia, normal heart sounds Neurological exam: Present: alert, oriented X3, CN II-XII intact Skin exam: Present: warm, dry, intact, normal color. Absent: rash Course Vital Signs 03/17/25 03/17/25 11:52 15:21 Temperature 97.8 F 98.7 F Pulse Rate 110 H 100 Respiratory 20 18 Rate Blood Pressure 167/108 135/89 O2 Sat by Pulse 99 97 Oximetry - Reevaluation(s) Reevaluation #1: 03/17/25 16:[address] Wilcox. He advised on transfer as we do not have ENT coverage. Reevaluation #2: 03/17/25 16:40 Patient auto accepted by [facility], Dr. Chavez Medical Decision Making - Medical Decision Making Was pt. sent in by a medical professional or institution (, PA, BALANCE WHEEL FACER, urgent care, hospital, or fci...) When possible be specific @ -No Did you speak to anyone other than the patient for history (EMS, parent, family, police, friend...)? What history was obtained from this source @ -No Did you review nursing and triage notes (agree or disagree)? Why? @ -I reviewed and agree with nursing and triage notes Were old charts reviewed (outside hosp., previous admission, EMS record, old EKG, old radiological studies, urgent care reports/EKG's, fci records)? Report findings @ -ER visit from 03-02-2025 reviewed. Laboratory studies will close it is 11.9 with a left shift. Strep positive. Heterophile negative. CT soft tissue neck showing bilateral palatine tonsillar enlargement with right greater than left. There is surrounding erythema and stranding with fluid in the right peritonsillar region consistent with tonsillitis. No I&D performed as there is no drainable abscess. Patient discharged home with Augmentin and prednisone. Differential Diagnosis (chest pain, altered mental status, abdominal pain women, abdominal pain men, vaginal bleeding, weakness, fever, dyspnea, syncope, headache, dizziness, GI bleed, back pain, seizure, CVA, palpatations, mental health, musculoskeletal)? @ -Strep pharyngitis, viral illness, Ludwigs angina, retropharyngeal abscess, peritonsillar abscess...this list is not meant to be all inclusive EKG interpreted by me (3pts min.). @ -None done X-rays interpreted by me (1pt min.). @ -None done CT interpreted by me (1pt min.). @ -CT soft tissue neck showing a developing 2 cm abscess to the right palatine tonsil. Continued marked enlargement of the lingual and palatine tonsils right greater than left. Adenopathy to jugular chain lymph nodes bilaterally largest 2.4 cm right jugular chain. U/S interpreted by me (1pt. min.). @ -None done What testing was considered but not performed or refused? (CT, X-rays, U/S, labs)? Why? @ -None What meds were considered but not given or refused? Why? @ -None Did you discuss the management of the patient with other professionals (professionals i.e. DrTony, PA, BALANCE WHEEL FACER, lab, RT, psych nurse, administrator social welfare, solar energy installation manager, teacher, aoc director combat operations officer, hospice case manager)? Give summary @ -Case discussed with Dr. Wilcox, patient's PCP, who advised on transfer as we do not have ENT coverage. Case discussed by party plan sales unit advisor, artery, with [facility] who auto excepted transfer. Accepting physician, . Was smoking cessation discussed for >3mins.? @ -No Was critical care preformed (if so, how long)? @ -No Were there social determinants of health that impacted care today? How? (Homelessness, low income, unemployed, alcoholism, drug addiction, transportation, low edu. Level, literacy, decrease access to med. care, alf, rehab)? @ -No Was there de-escalation of care discussed even if they declined (Discuss DNR or withdrawal of care, Hospice)? DNR status @ -No What co-morbidities impacted this encounter? (DM, HTN, Smoking, COPD, CAD, Cancer, CVA, ARF, Chemo, Hep., AIDS, mental health diagnosis, sleep apnea, morbid obesity)? @ -New onset diabetes mellitus, obesity Was patient admitted / discharged? Hospital course, mention meds given and route, prescriptions, significant lab abnormalities, going to OR and other pertinent info. @ -Transferred. 39-year-old female presented the ER for evaluation of sore throat. Upon arrival patient tachycardic 110 bpm and hypertensive 167/108 vitals otherwise with acceptable limits. Patient in no signs of acute distress protecting own airway. Exam remarkable for erythema and edema noted to right tonsillar with left deviation of uvula. Tenderness and enlargement to right submandibular lymph nodes. Given recurrent antibiotic use without improvement laboratory studies and CT soft tissue neck was obtained. Laboratory studies remarkable for leukocytosis of 11.3 with a left shift. Hemoglobin 11. Lactic 2.3. Glucose 241 this appears to be new onset diabetes, patient given 4 untis SQ insulin. Group A strep positive. Heterophile negative. CT soft tissue neck showing developing 2 cm abscess to the right peritonsillar region. Patient provided with 3 g IV Unasyn, 10 mg IV Decadron and 15 mg Toradol along with IV fluids. Blood cultures obtained. As patient has failed multiple rounds of outpatient antibiotics with worsening of symptoms and development of abscess, admission was discussed with patient's PCP, Dr. Wilcox, for IV antibiotic treatment of peritonsillar abscess. He ultimately recommended transfer for ENT consultation. Case was discussed by party plan sales unit advisor, Mango, with [facility] who auto excepted transfer. Accepting physician, Dr. Chavez. Patient will be transferred in stable condition via EMS to [facility] for further evaluation and treatment. Case discussed with ED attending, Dr. Adrian. Undiagnosed new problem with uncertain prognosis? @ -No Drug Therapy requiring intensive monitoring for toxicity (Heparin, Nitro, Insulin, Cardizem)? @ -No Were any procedures done? @ -No Diagnosis/symptom? @ -Peritonsillar abscess/new onset diabetes mellitus Acute, or Chronic, or Acute on Chronic? @ -Acute Uncomplicated (without systemic symptoms) or Complicated (systemic symptoms)? @ -Complicated Side effects of treatment? @ -No Exacerbation, Progression, or Severe Exacerbation? @ -No Poses a threat to life or bodily function? How? (Chest pain, [place], [place], pneumonia, PE, COPD, DKA, ARF, appy, cholecystitis, CVA, Diverticulitis, Homicidal, Suicidal, threat to staff... and all critical care pts) @ -Yes, can lead to sepsis and/or airway compromise. - Lab Data Result diagrams: 03/17/25 12:30 03/17/25 12:30 Lab Results 03/17/25 03/17/25 03/17/25 Range/Units 12:30 12:30 12:30 WBC 11.37 H (4.50-10.00) 10*3/uL RBC 4.12 (4.10-5.20) 10*6/uL Hgb 11.0 L (12.0-15.0) g/dL Hct 33.6 L (37.2-46.3) % MCV 81.6 (80.0-97.0) fL MCH 26.7 L (27.0-32.0) pg MCHC 32.7 (32.0-37.0) g/dL Plt Count 205 (140-440) 10*3/uL MPV 11.4 (9.5-12.2) fL Immature Gran % (Auto) 0.4 % Neutrophils % 79.4 % Lymphocytes % 14.9 % Monocytes % 4.0 % Eosinophils % 1.0 % Basophils % 0.3 % Immature Gran # 0.05 H (0.00-0.04) 10*3/uL Neutrophils # 9.03 H (1.80-7.70) 10*3/uL Lymphocytes # 1.69 (0.90-5.00) 10*3/uL Monocytes # 0.46 (0.20-1.00) 10*3/uL Eosinophils # 0.11 (0.04-0.35) 10*3/uL Basophils # 0.03 (0.00-0.10) 10*3/uL Sodium 136 L (137-145) mmol/L Potassium 3.8 (3.5-5.1) mmol/L Chloride 100 (98-107) mmol/L Carbon Dioxide 27 (22-30) mmol/L Anion Gap 9 mmol/L BUN 6 L (7-17) mg/dL Creatinine 0.36 L (0.52-1.04) mg/dL Est GFR (CKD-EPI)AfAm >90 (>60 ml/min/1.73 sqM) Est GFR (CKD-EPI)NonAf >90 (>60 ml/min/1.73 sqM) Glucose 241 H (74-99) mg/dL POC Glucose (mg/dL) (70-110) mg/dL POC Glu Earth Moving Machine Operator ID Lactic Ac Sepsis Rflx Plasma Lactic Acid Jitendra 2.3 H* (0.7-2.0) mmol/L Calcium 8.9 (8.4-10.2) mg/dL Total Bilirubin 0.7 (0.2-1.3) mg/dL AST 24 (14-36) U/L ALT 38 H (4-34) U/L Alkaline Phosphatase 105 (38-126) U/L Total Protein 7.4 (6.3-8.2) g/dL Albumin 3.9 (3.5-5.0) g/dL Heterophile Antibody (Negative) Group A Strep (PCR) (Not Detectd) 03/17/25 03/17/25 03/17/25 Range/Units 12:59 13:55 13:55 WBC (4.50-10.00) 10*3/uL RBC (4.10-5.20) 10*6/uL Hgb (12.0-15.0) g/dL Hct (37.2-46.3) % MCV (80.0-97.0) fL MCH (27.0-32.0) pg MCHC (32.0-37.0) g/dL Plt Count (140-440) 10*3/uL MPV (9.5-12.2) fL Immature Gran % (Auto) % Neutrophils % % Lymphocytes % % Monocytes % % Eosinophils % % Basophils % % Immature Gran # (0.00-0.04) 10*3/uL Neutrophils # (1.80-7.70) 10*3/uL Lymphocytes # (0.90-5.00) 10*3/uL Monocytes # (0.20-1.00) 10*3/uL Eosinophils # (0.04-0.35) 10*3/uL Basophils # (0.00-0.10) 10*3/uL Sodium (137-145) mmol/L Potassium (3.5-5.1) mmol/L Chloride (98-107) mmol/L Carbon Dioxide (22-30) mmol/L Anion Gap mmol/L BUN (7-17) mg/dL Creatinine (0.52-1.04) mg/dL Est GFR (CKD-EPI)AfAm (>60 ml/min/1.73 sqM) Est GFR (CKD-EPI)NonAf (>60 ml/min/1.73 sqM) Glucose (74-99) mg/dL POC Glucose (mg/dL) (70-110) mg/dL POC Glu Earth Moving Machine Operator ID Lactic Ac Sepsis Rflx Y Plasma Lactic Acid Jitendra (0.7-2.0) mmol/L Calcium (8.4-10.2) mg/dL Total Bilirubin (0.2-1.3) mg/dL AST (14-36) U/L ALT (4-34) U/L Alkaline Phosphatase (38-126) U/L Total Protein (6.3-8.2) g/dL Albumin (3.5-5.0) g/dL Heterophile Antibody Negative (Negative) Group A Strep (PCR) DETECTED A (Not Detectd) 03/17/25 03/17/25 Range/Units 15:15 16:47 WBC (4.50-10.00) 10*3/uL RBC (4.10-5.20) 10*6/uL Hgb (12.0-15.0) g/dL Hct (37.2-46.3) % MCV (80.0-97.0) fL MCH (27.0-32.0) pg MCHC (32.0-37.0) g/dL Plt Count (140-440) 10*3/uL MPV (9.5-12.2) fL Immature Gran % (Auto) % Neutrophils % % Lymphocytes % % Monocytes % % Eosinophils % % Basophils % % Immature Gran # (0.00-0.04) 10*3/uL Neutrophils # (1.80-7.70) 10*3/uL Lymphocytes # (0.90-5.00) 10*3/uL Monocytes # (0.20-1.00) 10*3/uL Eosinophils # (0.04-0.35) 10*3/uL Basophils # (0.00-0.10) 10*3/uL Sodium (137-145) mmol/L Potassium (3.5-5.1) mmol/L Chloride (98-107) mmol/L Carbon Dioxide (22-30) mmol/L Anion Gap mmol/L BUN (7-17) mg/dL Creatinine (0.52-1.04) mg/dL Est GFR (CKD-EPI)AfAm (>60 ml/min/1.73 sqM) Est GFR (CKD-EPI)NonAf (>60 ml/min/1.73 sqM) Glucose (74-99) mg/dL POC Glucose (mg/dL) 243 H (70-110) mg/dL POC Glu Earth Moving Machine Operator ID Mirian Ricardo Lactic Ac Sepsis Rflx Plasma Lactic Acid Jitendra 2.3 H* (0.7-2.0) mmol/L Calcium (8.4-10.2) mg/dL Total Bilirubin (0.2-1.3) mg/dL AST (14-36) U/L ALT (4-34) U/L Alkaline Phosphatase (38-126) U/L Total Protein (6.3-8.2) g/dL Albumin (3.5-5.0) g/dL Heterophile Antibody (Negative) Group A Strep (PCR) (Not Detectd) - Radiology Data Radiology results: report reviewed, image reviewed Disposition Clinical Impression: Peritonsillar abscess, Diabetes mellitus Disposition: OTHER INSTITUTION NOT DEFINED Condition: Stable Referrals: Amor Wilcox MD [Primary Care Provider] - 1-2 days Time of Disposition: 16:28 - Out of Hospital Transfer - Req. Specs Out of Hospital Transfer - Requested Specifics: Other Emergency Center ([facility])
[2025-03-17 12:44] LABS: Basophils # (A) 0.03 10*3/uL (0.00-0.10); Basophils % (A) 0.3 %; Eosinophils # (A) 0.11 10*3/uL (0.04-0.35); HCT 33.6 % (37.2-46.3); Lymphocytes # (A) 1.69 10*3/uL (0.90-5.00); Lymphocytes % (A) 14.9 %; MCH 26.7 pg (27.0-32.0); MCHC 32.7 g/dL (32.0-37.0); MCV 81.6 fL (80.0-97.0); Mean Platelet Volume 11.4 fL (9.5-12.2); Monocytes # (A) 0.46 10*3/uL (0.20-1.00); Neutrophils # (A) 9.03 10*3/uL (1.80-7.70); Neutrophils % (A) 79.4 %; Platelet Count 205 10*3/uL (140-440); RBC 4.12 10*6/uL (4.10-5.20); RDW 14.8 % (11.5-14.5); WBC 11.37 10*3/uL (4.50-10.00)
[2025-03-17] MEDS: SODIUM CHLORIDE 0.9% 1,000 ML IV ONE ×2 (12:50→17:05)
[2025-03-17] MEDS: AMPICILLIN-SULBACTAM 3 GM in SODIUM CHLORIDE 0.9% 100 ML IVPB STA (12:52)
[2025-03-17 12:53] LABS: ALT 38 U/L (4-34); AST 24 U/L (14-36); African American GFR (CKD) >90 (>60 ml/min/1.73 sqM); Albumin 3.9 g/dL (3.5-5.0); Alkaline Phosphatase 105 U/L (38-126); Anion Gap 9 mmol/L; Blood Urea Nitrogen 6 mg/dL (7-17); Calcium 8.9 mg/dL (8.4-10.2); Carbon Dioxide 27 mmol/L (22-30); Chloride 100 mmol/L (98-107); Glucose 241 mg/dL (74-99); Non-African American GFR(CKD) >90 (>60 ml/min/1.73 sqM); Potassium 3.8 mmol/L (3.5-5.1); Sodium 136 mmol/L (137-145); Total Bilirubin 0.7 mg/dL (0.2-1.3); Total Protein 7.4 g/dL (6.3-8.2)
[2025-03-17] MEDS: KETOROLAC 15 MG/ML 1 ML VIAL IVP STA ×2 (12:54→17:05)
[2025-03-17] MEDS: DEXAMETHASONE SOD PHOSPHATE 10 MG/ML 1 ML VIAL IVP STA (12:56)
--- NOTE | 2025-03-17 15:09 | CT ---
EXAMINATION TYPE: CT soft tissue neck w con DATE OF EXAM: 03/17/2025 2:56 PM COMPARISON: 03/02/2025 CLINICAL INDICATION: Female, 39 years old with history of R tonsillar edema w uvular deviation; PHH, R tonsillar edema w uvular deviation TECHNIQUE: CT scan of the neck is performed following with IV Contrast, patient injected with 100ml mL of Isovue 300. Axial images are obtained, coronal and sagittal reformatted images are reviewed. CT DLP: 700.[address] CTDI: mGy Automated exposure control for dose reduction was used. FINDINGS: The thyroid gland is not enlarged and there are no focal masses. The larynx including the thyroid, arytenoid, cricoid cartilages as well as the vocal cords are normal and symmetric without laryngeal mass. There is marked prominence of the lingual and palatine tonsils bilaterally, right much greater than l eft. The mass effect has resolved with aeration valleculae and piriform sinuses on the right and sign ificant compromise of the airway in the nasopharynx. There is been interval development of a 2 cm hyp odensity in the right palatine tonsil consistent with a developing tonsillar abscess. As seen previou sly there is markedly enlarged jugular chain lymph nodes bilaterally the largest is a 2.4 cm right ju gular chain lymph node. There are a few scattered enlarged right submandibular lymph nodes The submandibular glands and parotid glands are normal and symmetric. The great vessels of the neck are normal. Visualized osseous structures are intact. There is minimal chronic inflammatory change in the right maxillary sinus. Mastoid air cells are well aerated. IMPRESSION: 1. Continued marked enlargement of the lingual and palatine tonsils, right greater than left with mar ked adenopathy as described above. 2. Developing 2 cm abscess in the right palatine tonsil [facility], , 03/17/2025 3:07 PM
[2025-03-17 15:22] VITALS: BP 135/89; PULSE 100; RESP 18; TEMP 98.7
[2025-03-17 16:49] LABS: Glucose,Whole Blood 243 mg/dL (70-110)
[2025-03-17] MEDS: INSULIN LISPRO (HumaLOG) 100 UNIT/ML 10 mL VL SQ ONE (17:01)
[2025-03-17] MEDS: ACETAMINOPHEN TAB 325 MG TAB PO STA (17:07)
[2025-03-17] MEDS: AMPICILLIN-SULBACTAM 3 GM in SODIUM CHLORIDE 0.9% 100 ML IVPB SCH (18:30)
== END 2025-03-17 18:31 | disposition other institution (70) ==
LOC: EC 11:51
DX: J36 Peritonsillar abscess (principal); E11.9 Type 2 diabetes mellitus without complications; Z87.891 Personal history of nicotine dependence
CPT/HCPCS: 36415; 87651; 80053; 83605; 85025; 86308; 87040; 70491; 99284; 96365; 96375 ×2; 96376 ×2; 96361 ×2; J1100; J0295; J1885; Q9967

== ENCOUNTER 2025-05-03 19:30 | Observation (INO) | payer OTHER ==
[2025-05-03 23:11] LABS: Basophils # (A) 0.03 10*3/uL (0.00-0.10); Basophils % (A) 0.3 %; Eosinophils # (A) 0.22 10*3/uL (0.04-0.35); Eosinophils % (A) 2.2 %; HCT 34.3 % (37.2-46.3); HGB 10.9 g/dL (12.0-15.0); Lymphocytes # (A) 2.88 10*3/uL (0.90-5.00); Lymphocytes % (A) 29.1 %; MCH 26.2 pg (27.0-32.0); MCHC 31.8 g/dL (32.0-37.0); MCV 82.5 fL (80.0-97.0); Mean Platelet Volume 11.8 fL (9.5-12.2); Monocytes # (A) 0.42 10*3/uL (0.20-1.00); Monocytes % (A) 4.3 %; Neutrophils # (A) 6.31 10*3/uL (1.80-7.70); Neutrophils % (A) 63.9 %; Platelet Count 262 10*3/uL (140-440); RBC 4.16 10*6/uL (4.10-5.20); RDW 14.1 % (11.5-14.5); WBC 9.88 10*3/uL (4.50-10.00)
[2025-05-03 23:38] LABS: ALT 25 U/L (4-34); AST 20 U/L (14-36); African American GFR (CKD) >90 (>60 ml/min/1.73 sqM); Albumin 3.9 g/dL (3.5-5.0); Alkaline Phosphatase 97 U/L (38-126); Anion Gap 8 mmol/L; Blood Urea Nitrogen 11 mg/dL (7-17); Calcium 9.2 mg/dL (8.4-10.2); Carbon Dioxide 28 mmol/L (22-30); Chloride 102 mmol/L (98-107); Glucose 129 mg/dL (74-99); Non-African American GFR(CKD) >90 (>60 ml/min/1.73 sqM); Potassium 4.1 mmol/L (3.5-5.1); Sodium 138 mmol/L (137-145); Total Bilirubin 0.5 mg/dL (0.2-1.3); Total Protein 7.2 g/dL (6.3-8.2)
--- NOTE | 2025-05-03 23:44 | ED ---
ENT HPI <Napoleon Be - Last Filed: 05/04/25 07:29> - General Source: patient, RN notes reviewed, old records reviewed Mode of arrival: ambulatory Limitations: no limitations - History of Present Illness MD complaint: sore throat -: days(s) Location: throat Severity: severe Severity scale (1-10): 10 Consistency: constant Improves with: none Worsens with: swallowing Associated Symptoms: fever, pain with swallowing, sore throat <Humble Nixon - Last Filed: 05/10/25 19:18> - General Chief complaint: GI Bleed Stated complaint: Throat pain Time Seen by Provider: 05/03/25 23:33 - History of Present Illness Initial comments: This is a 39-year-old female to the ER with severe sore throat sore throat with without cough or congestion significant swollen throat recent diagnosis of strep throat (Humble Nixon) - Related Data Home Medications Medication Instructions Recorded Confirmed Cetirizine HCl 10 mg PO DAILY 03/28/23 05/04/25 Sertraline [Zoloft] 50 mg PO HS 03/28/23 05/04/25 Cyclobenzaprine [Flexeril] 10 mg PO TID PRN 04/26/24 05/04/25 traZODone HCL [Desyrel] 100 mg PO HS 04/26/24 05/04/25 Albuterol Sulfate [Ventolin HFA] 2 puff INHALATION RT-QID PRN 03/17/25 05/04/25 Ibuprofen [Motrin] 600 mg PO BID PRN 03/17/25 05/04/25 Fluticasone Nasal [place] [Flonase 1 spray EA NOSTRIL DAILY 05/04/25 05/04/25 Nasal [place]] Penicillin V Potassium [Pen Vee K] 500 mg PO TID 05/04/25 05/04/25 Allergies Allergy/AdvReac Type Severity Reaction Status Date / Time No Known Allergies Allergy Verified 05/04/25 09:31 Review of Systems ROS Other: All systems not noted in ROS Statement are negative. <Napoleon Be - Last Filed: 05/04/25 07:29> ROS Other: All systems not noted in ROS Statement are negative. <Humble Nixon - Last Filed: 05/10/25 19:18> ROS Statement: Those systems with pertinent positive or pertinent negative responses have been documented in the HPI. Past Medical History Past Medical History: Diabetes Mellitus, Hyperlipidemia, Hypertension, Seizure Disorder Additional Past Medical History / Comment(s): meningitis, herniated discs, type 2 DM History of Any Multi-Drug Resistant Organisms: None Reported Past Surgical History: Adenoidectomy, Section, Ear Surgery Past Anesthesia/Blood Transfusion Reactions: No Reported Reaction Past Psychological History: Anxiety, Bipolar, Depression, Panic Disorder Smoking Status: Former smoker Past Alcohol Use History: Occasional Past Drug Use History: None Reported <Humble Nixon - Last Filed: 05/10/25 19:18> General Exam Limitations: no limitations General appearance: alert, in no apparent distress Head exam: Present: atraumatic, normocephalic, normal inspection Eye exam: Present: normal appearance, PERRL, EOMI. Absent: scleral icterus, conjunctival injection, periorbital swelling ENT exam: Present: normal exam, mucous membranes moist Neck exam: Present: normal inspection. Absent: tenderness, meningismus, lymphadenopathy Respiratory exam: Present: normal lung sounds bilaterally. Absent: respiratory distress, wheezes, rales, rhonchi, stridor Cardiovascular Exam: Present: regular rate, normal rhythm, normal heart sounds. Absent: systolic murmur, diastolic murmur, rubs, gallop, clicks GI/Abdominal exam: Present: soft, normal bowel sounds. Absent: distended, tenderness, guarding, rebound, rigid Extremities exam: Present: normal inspection, full ROM, normal capillary refill. Absent: tenderness, pedal edema, joint swelling, calf tenderness Back exam: Present: normal inspection Neurological exam: Present: alert, oriented X3, CN II-XII intact Psychiatric exam: Present: normal affect, normal mood Skin exam: Present: warm, dry, intact, normal color. Absent: rash <Humble Nixon - Last Filed: 05/10/25 19:18> Course <Humble Nixon - Last Filed: 05/10/25 19:18> Vital Signs 05/03/25 05/03/25 05/04/25 19:47 23:32 06:03 Temperature 98.2 F 97.7 F Pulse Rate 95 105 H 90 Respiratory 18 18 18 Rate Blood Pressure 143/83 145/104 122/81 Blood Pressure [Left Arm] O2 Sat by Pulse 98 98 96 Oximetry 05/04/25 05/04/25 05/04/25 08:16 13:40 16:00 Temperature 97.8 F 99.5 F Pulse Rate 94 89 Respiratory 18 16 17 Rate Blood Pressure 128/84 107/66 Blood Pressure 136/87 [Left Arm] O2 Sat by Pulse 96 97 100 Oximetry 05/04/25 17:09 Temperature 97.9 F Pulse Rate 95 Respiratory 16 Rate Blood Pressure 113/76 Blood Pressure [Left Arm] O2 Sat by Pulse 95 Oximetry - Reevaluation(s) Reevaluation #1: 05/03/25 23:57 Medical records reviewed (Humble Nixon) Reevaluation #2: Patient symptoms are improving here in the ER (Humble Nixon) Reevaluation #3: Patient informed of results and questions answered (Humble Nixon) Reevaluation #4: Was pt. sent in by a medical professional or institution (, PA, VAN LOADER, urgent c are, hospital, or long term...) When possible be specific @ -no Did you speak to anyone other than the patient for history (EMS, parent, family, police, friend...)? What history was obtained from this source @ -no Did you review nursing and triage notes (agree or disagree)? Why? @ -agree Are old charts reviewed (outside hosp., previous admission, EMS record, old EKG, old radiological studies, urgent care reports/EKG's, long term records)? Report findings @ -yes Differential Diagnosis (chest pain, altered mental status, abdominal pain women, abdominal pain men, vaginal bleeding, weakness, fever, dyspnea, syncope, headache, dizziness, GI bleed, back pain, seizure, CVA, palpatations, mental health, musculoskeletal)? @ -prior EKG interpreted by me (3pts min.). @ -no X-rays interpreted by me (1pt min.). @ -no CT interpreted by me (1pt min.). @ -Yes positive for peritonsillar cellulitis U/S interpreted by me (1pt. min.). @ -no What testing was considered but not performed or refused? (CT, X-rays, U/S, labs)? Why? @ -none What meds were considered but not given or refused? Why? @ -none Did you discuss the management of the patient with other professionals (professionals i.e. , PA, VAN LOADER, lab, RT, psych nurse, community mental health social worker, work order sorting clerk, teacher, property utilization officer, wind energy project manager)? Give summary @ -no Was smoking cessation discussed for >3mins.? @ -no Was critical care preformed (if so, how long)? @ -no Were there social determinants of health that impacted care today? How? (Homelessness, low income, unemployed, alcoholism, drug addiction, transportation, low edu. Level, literacy, decrease access to med. care, prison, rehab)? @ -none Was there de-escalation of care discussed even if they declined (Discuss DNR or withdrawal of care, Hospice)? DNR status @ -no What co-morbidities impacted this encounter? (DM, HTN, Smoking, COPD, CAD, Cancer, CVA, ARF, Chemo, Hep., AIDS, mental health diagnosis, sleep apnea, morbid obesity)? @ -none Was patient admitted / discharged? Hospital course, mention meds given and route, prescriptions, significant lab abnormalities, going to OR and other pertinent info. @ - 39 female with strep throat developing peritonsillar cellulitis, patient will be admitted for IV antibiotic Admitted Undiagnosed new problem with uncertain prognosis? @ -no Drug Therapy requiring intensive monitoring for toxicity (Heparin, Nitro, Insulin, Cardizem)? @ -no Were any procedures done? @ -no Diagnosis/symptom? @ -Strep pharyngitis and cellulitis Acute, or Chronic, or Acute on Chronic? @ -Acute Uncomplicated (without systemic symptoms) or Complicated (systemic symptoms)? @ -Complicated Side effects of treatment? @ -no Exacerbation, Progression, or Severe Exacerbation? @ -exacerbation Poses a threat to life or bodily function? How? (Chest pain, [place], [place], pneumonia, PE, COPD, DKA, ARF, appy, cholecystitis, CVA, Diverticulitis, Homicidal, Suicidal, threat to staff... and all critical care pts) @ -yes significant soft tissue infection (Humble Nixon) - Consultations Consultation #1: Attempted to reach ENT for follow-up was unsuccessful (Humble Nixon) Consultation #2: Spoke with Dr. Wilcox is okay to admit this patient (Humble Nixon) Medical Decision Making - Lab Data Result diagrams: 05/03/25 22:56 05/03/25 22:24 <Napoleon Be - Last Filed: 05/04/25 07:29> - Lab Data Result diagrams: 05/05/25 04:09 05/05/25 04:09 - Radiology Data Radiology results: report reviewed (CT soft tissue neck positive for peritonsillar phlegmon with developing abscess), image reviewed <Humble Nixon - Last Filed: 05/10/25 19:18> - Medical Decision Making Patient was pending admission. Diagnosed with peritonsillar phlegmon. I spoke with Dr. Wilcox who accepted the admission. Consult placed to ENT. We will continue with IV Unasyn 3 times daily as well as IV Decadron 4 times daily. Patient was in agreement this plan. Diagnosis/symptom? @ -Peritonsillar phlegmon, strep pharyngitis Acute, or Chronic, or Acute on Chronic? @ -Acute Uncomplicated (without systemic symptoms) or Complicated (systemic symptoms)? @ -Complicated Side effects of treatment? @ -None Exacerbation, Progression, or Severe Exacerbation] @ -No Poses a threat to life or bodily function? @ -Potentially, yes (Napoleon Be) 39 female with strep throat developing peritonsillar cellulitis, patient will be admitted for IV antibiotic (Humble Nixon) - Lab Data Lab Results 05/03/25 05/03/25 05/03/25 Range/Units 22:24 22:56 23:55 WBC 9.88 (4.50-10.00) 10*3/uL RBC 4.16 (4.10-5.20) 10*6/uL Hgb 10.9 L (12.0-15.0) g/dL Hct 34.3 L (37.2-46.3) % MCV 82.5 (80.0-97.0) fL MCH 26.2 L (27.0-32.0) pg MCHC 31.8 L (32.0-37.0) g/dL Plt Count 262 (140-440) 10*3/uL MPV 11.8 (9.5-12.2) fL Immature Gran % (Auto) 0.2 % Neutrophils % 63.9 % Lymphocytes % 29.1 % Monocytes % 4.3 % Eosinophils % 2.2 % Basophils % 0.3 % Immature Gran # 0.02 (0.00-0.04) 10*3/uL Neutrophils # 6.31 (1.80-7.70) 10*3/uL Lymphocytes # 2.88 (0.90-5.00) 10*3/uL Monocytes # 0.42 (0.20-1.00) 10*3/uL Eosinophils # 0.22 (0.04-0.35) 10*3/uL Basophils # 0.03 (0.00-0.10) 10*3/uL Sodium 138 (137-145) mmol/L Potassium 4.1 (3.5-5.1) mmol/L Chloride 102 (98-107) mmol/L Carbon Dioxide 28 (22-30) mmol/L Anion Gap 8 mmol/L BUN 11 (7-17) mg/dL Creatinine 0.52 (0.52-1.04) mg/dL Est GFR (CKD-EPI)AfAm >90 (>60 ml/min/1.73 sqM) Est GFR (CKD-EPI)NonAf >90 (>60 ml/min/1.73 sqM) Glucose 129 H (74-99) mg/dL Calcium 9.2 (8.4-10.2) mg/dL Phosphorus 4.0 (2.5-4.5) mg/dL Magnesium 1.9 (1.6-2.3) mg/dL Total Bilirubin 0.5 (0.2-1.3) mg/dL AST 20 (14-36) U/L ALT 25 (4-34) U/L Alkaline Phosphatase 97 (38-126) U/L Total Protein 7.2 (6.3-8.2) g/dL Albumin 3.9 (3.5-5.0) g/dL Group A Strep (PCR) (Not Detectd) 05/03/25 Range/Units 23:55 WBC (4.50-10.00) 10*3/uL RBC (4.10-5.20) 10*6/uL Hgb (12.0-15.0) g/dL Hct (37.2-46.3) % MCV (80.0-97.0) fL MCH (27.0-32.0) pg MCHC (32.0-37.0) g/dL Plt Count (140-440) 10*3/uL MPV (9.5-12.2) fL Immature Gran % (Auto) % Neutrophils % % Lymphocytes % % Monocytes % % Eosinophils % % Basophils % % Immature Gran # (0.00-0.04) 10*3/uL Neutrophils # (1.80-7.70) 10*3/uL Lymphocytes # (0.90-5.00) 10*3/uL Monocytes # (0.20-1.00) 10*3/uL Eosinophils # (0.04-0.35) 10*3/uL Basophils # (0.00-0.10) 10*3/uL Sodium (137-145) mmol/L Potassium (3.5-5.1) mmol/L Chloride (98-107) mmol/L Carbon Dioxide (22-30) mmol/L Anion Gap mmol/L BUN (7-17) mg/dL Creatinine (0.52-1.04) mg/dL Est GFR (CKD-EPI)AfAm (>60 ml/min/1.73 sqM) Est GFR (CKD-EPI)NonAf (>60 ml/min/1.73 sqM) Glucose (74-99) mg/dL Calcium (8.4-10.2) mg/dL Phosphorus (2.5-4.5) mg/dL Magnesium (1.6-2.3) mg/dL Total Bilirubin (0.2-1.3) mg/dL AST (14-36) U/L ALT (4-34) U/L Alkaline Phosphatase (38-126) U/L Total Protein (6.3-8.2) g/dL Albumin (3.5-5.0) g/dL Group A Strep (PCR) DETECTED A (Not Detectd) Disposition Time of Disposition: 07:30 <Napoleon Be - Last Filed: 05/04/25 07:29> <Humble Nixon - Last Filed: 05/10/25 19:18> Clinical Impression: Peritonsillar cellulitis, Phlegmon, Strep pharyngitis Disposition: ADMITTED IP TO THIS HOSP Condition: Stable
[2025-05-04 00:16] LABS: Magnesium 1.9 mg/dL (1.6-2.3)
[2025-05-04] MEDS: KETOROLAC 15 MG/ML 1 ML VIAL IVP STA (00:24)
[2025-05-04] MEDS: SODIUM CHLORIDE 0.9% 1,000 ML IV ONE (00:26)
[2025-05-04] MEDS: DEXAMETHASONE SOD PHOSPHATE 10 MG/ML 1 ML VIAL IVP STA (00:27)
[2025-05-04] MEDS: MORPHINE SULFATE 4 MG/ML SYRINGE IV STA (00:27)
[2025-05-04] MEDS: AMPICILLIN-SULBACTAM 3 GM in SODIUM CHLORIDE 0.9% 100 ML IVPB STA ×2 (00:29→04:47)
[2025-05-04] MEDS: SODIUM CHLORIDE 0.9% 1,000 ML IV SCH (01:43)
--- NOTE | 2025-05-04 03:06 | CT ---
EXAM: CT Neck With Intravenous Contrast CLINICAL HISTORY: ITS.REASON CT Reason: DRAWER IN HAND TECHNIQUE: Axial computed tomography images of the neck with intravenous contrast. CTDI is 12 mGy and DLP is 349.7 mGy-cm. This CT exam was performed using one or more of the following dose reduction techniques: automated exposure control, adjustment of the mA and/or kV according to patient size, and/or use of iterative reconstruction technique. COMPARISON: No relevant prior studies available. FINDINGS: 2.4 cm right peritonsillar early abscess versus phlegmon. IMPRESSION: 2.4 cm right peritonsillar early abscess versus phlegmon.
[2025-05-04] MEDS: DEXAMETHASONE SOD PHOSPHATE 4 MG/ML 1 ML VIAL IVP STA (04:47)
[2025-05-04] MEDS: ONDANSETRON 4 MG/2 ML VIAL IVP STA (04:56)
[2025-05-04] MEDS ORDERED: NALOXONE 0.4 MG/ML 1 ML VIAL IV PRN (07:24)
[2025-05-04] MEDS: DEXAMETHASONE SOD PHOSPHATE 4 MG/ML 1 ML VIAL IVP SCH (12:04)
[2025-05-04] MEDS: AMPICILLIN-SULBACTAM 3 GM in SODIUM CHLORIDE 0.9% 100 ML IVPB SCH (12:04)
[2025-05-04] MEDS: KETOROLAC 15 MG/ML 1 ML VIAL IVP PRN (12:06)
--- NOTE | 2025-05-04 18:11 | HP ---
HISTORY AND PHYSICAL CHIEF COMPLAINT: Sore throat. HISTORY OF PRESENT ILLNESS: First admission for this 39-year-old female, who presented to the emergency room with pain in the throat. She was evaluated and felt to have a strep pharyngitis with possible cellulitis or abscess. She has had no fever or chills. She is diabetic. REVIEW OF SYSTEMS: Otherwise, unremarkable. Past medical history, family history, and personal and social histories reveal that she is not allergic to any medication. She is on Ozempic, sertraline, trazodone, Flexeril, ibuprofen, albuterol inhaler and Flonase. Remainder of her history is unremarkable. She does not smoke. PHYSICAL EXAMINATION: VITAL SIGNS: Normal. HEAD, EARS, EYES, NOSE, MOUTH AND THROAT: Normal. CHEST: Clear. CARDIAC: Normal. ABDOMEN: Soft, nontender. There is swelling in the area of the suspected cellulitis or possible peritonsillar abscess. IMPRESSION: Strep pharyngitis with peritonsillar cellulitis or abscess. PLAN: 1. Bedrest. 2. IV fluids. 3. IV antibiotics. MMODL / IJN: [id number] /
[2025-05-04] MEDS: ONDANSETRON 4 MG/2 ML VIAL IVP PRN (21:33)
[2025-05-04] MEDS: ACETAMINOPHEN TAB 325 MG TAB PO PRN (21:33)
[2025-05-05 04:27] LABS: Basophils # (A) 0.02 10*3/uL (0.00-0.10); Basophils % (A) 0.2 %; HCT 32.7 % (37.2-46.3); HGB 10.5 g/dL (12.0-15.0); Lymphocytes # (A) 1.64 10*3/uL (0.90-5.00); Lymphocytes % (A) 12.9 %; MCH 26.6 pg (27.0-32.0); MCHC 32.1 g/dL (32.0-37.0); Mean Platelet Volume 11.7 fL (9.5-12.2); Monocytes # (A) 0.37 10*3/uL (0.20-1.00); Monocytes % (A) 2.9 %; Neutrophils # (A) 10.64 10*3/uL (1.80-7.70); Neutrophils % (A) 83.5 %; Platelet Count 283 10*3/uL (140-440); RBC 3.94 10*6/uL (4.10-5.20); RDW 13.9 % (11.5-14.5); WBC 12.74 10*3/uL (4.50-10.00)
[2025-05-05 04:43] LABS: ALT 28 U/L (4-34); AST 19 U/L (14-36); African American GFR (CKD) >90 (>60 ml/min/1.73 sqM); Albumin 3.8 g/dL (3.5-5.0); Alkaline Phosphatase 94 U/L (38-126); Anion Gap 9 mmol/L; Blood Urea Nitrogen 11 mg/dL (7-17); Calcium 8.9 mg/dL (8.4-10.2); Carbon Dioxide 24 mmol/L (22-30); Chloride 104 mmol/L (98-107); Glucose 202 mg/dL (74-99); Non-African American GFR(CKD) >90 (>60 ml/min/1.73 sqM); Potassium 4.4 mmol/L (3.5-5.1); Sodium 137 mmol/L (137-145); Total Bilirubin 0.4 mg/dL (0.2-1.3); Total Protein 6.9 g/dL (6.3-8.2)
[2025-05-05] MEDS: MORPHINE SULFATE 4 MG/ML SYRINGE IV PRN (15:57)
[2025-05-05] MEDS: AMPICILLIN-SULBACTAM 3 GM in SODIUM CHLORIDE 0.9% 100 ML IVPB SCH (17:22)
--- NOTE | 2025-05-05 23:20 | PN ---
PROGRESS NOTE CHIEF COMPLAINT: Pharyngitis and peritonsillar cellulitis. HISTORY OF PRESENT ILLNESS: This lady is doing well and she is feeling better. She feels like the pain and swelling are going down. PHYSICAL EXAMINATION: NECK: Exam seems normal. There is still some redness and swelling in the right faucial area. IMPRESSION: Strep tonsillitis, cellulitis. PLAN: Advance diet and repeat CBC. MMODL / IJN: [id number] /
[2025-05-06 09:20] VITALS: BP 149/91; PULSE 78; RESP 18; TEMP 97.5
--- NOTE | 2025-05-06 17:48 | DS ---
DISCHARGE SUMMARY CHIEF COMPLAINT: Sore throat and right peritonsillar cellulitis or abscess. HISTORY OF PRESENT ILLNESS AND PHYSICAL EXAMINATION: Details of this lady's history and physical can be found in the initial workup. LABORATORY STUDIES: While she is in the hospital, she had laboratory studies, details of which can be found in the laboratory section of her chart. COURSE IN THE HOSPITAL: After admission, she was placed on bedrest, started on intravenous fluids and IV antibiotics. The pain and swelling subsided suggesting that she only had cellulitis, but no abscess. She was doing well without any pain, fever, dysphagia, and it was felt that she could go home on the and she will stay on the Augmentin. She will be followed up in the office in several days. FINAL DIAGNOSES: 1. Strep tonsillitis. 2. Right peritonsillar cellulitis. OPERATIONS: None. CONSULTATION: None. JABIER / DIANE: [id number] /
== END 2025-05-06 11:30 | disposition home or self-care (01) ==
LOC: EC 19:30 → 6NMEDSUR 05-04 07:26 → 1SOBS 05-04 15:03
PROVIDERS: ADMIT Family Medicine; ATTEND Family Medicine
DX: J36 Peritonsillar abscess (principal); B95.5 Unspecified streptococcus as the cause of diseases classified elsewhere; E11.9 Type 2 diabetes mellitus without complications; E78.5 Hyperlipidemia, unspecified; I10 Essential (primary) hypertension; F31.9 Bipolar disorder, unspecified; F41.0 Panic disorder [episodic paroxysmal anxiety]; Z87.891 Personal history of nicotine dependence; Z79.51 Long term (current) use of inhaled steroids; Z79.899 Other long term (current) drug therapy
CPT/HCPCS: 96361 ×3; 96365 ×2; 96366 ×3; 96376 ×4; 96375; 99285; 36415; 87651; 80053 ×2; 83735; 84100; 85025 ×2; 70491; G0378 ×4; J2270 ×2; J1100 ×4; J2405; J0295 ×3; J1885; Q9967